=== PATIENT | female | born 1940 | race Caucasian/White ===

== ENCOUNTER 2016-11-09 10:29 | Emergency (ER) | payer MEDICARE, BC ==
[2016-11-09] MEDS ORDERED: methylPREDNISolone SOD SUCCI 125 MG/2 ML VIAL IV STA (10:49)
[2016-11-09] MEDS ORDERED: FAMOTIDINE 20 MG/2 ML VIAL IV STA (10:49)
[2016-11-09] MEDS ORDERED: diphenhydrAMINE 50 MG CAP PO STA (10:49)
--- NOTE | 2016-11-09 10:59 | ED ---
General Adult HPI - General Chief complaint: Allergic Reaction Stated complaint: allergic reaction Time Seen by Provider: 11/09/16 10:44 Source: patient, RN notes reviewed Mode of arrival: ambulatory Limitations: no limitations - History of Present Illness Initial comments: Patient is a pleasant 76-year-old female presenting to the emergency department with concerns for ALLERGIC reaction. Patient started doxycycline for a sore on her leg. Last dose was Monday. Patient noticed hives. Patient took Benadryl yesterday with some improvement of symptoms. Patient noticed today some mild swelling of her throat and mild dyspnea. Rash has slightly improved. - Related Data Home Medications Medication Instructions Recorded Confirmed Atorvastatin [Lipitor] 40 mg PO HS 02/05/15 11/09/16 Budesonide [Pulmicort Flexhaler] 2 puff INHALATION RT-BID 02/05/15 11/09/16 Isosorbide Mononitrate ER [Imdur] 30 mg PO DAILY 02/05/15 11/09/16 Lisinopril [Zestril] 2.5 mg PO DAILY 02/05/15 11/09/16 Sertraline HCl [Zoloft] 150 mg PO HS 02/05/15 11/09/16 Verapamil HCl [Verapamil ER] 240 mg PO HS 02/05/15 11/09/16 Cetirizine HCl [Zyrtec] 5 mg PO DAILY PRN 02/18/15 11/09/16 Multivitamin/Iron/Folic Acid 1 tab PO DAILY 02/18/15 11/09/16 [Centrum Complete Multivit Tab] Previous Rx's Medication Instructions Recorded methylPREDNISolone Dose Pack 24 mg PO DAILY #1 tab 11/09/16 [Medrol Dose Pack] Allergies Allergy/AdvReac Type Severity Reaction Status Date / Time azithromycin Allergy Anaphylaxis Verified 11/09/16 10:33 [From Zithromax Z-Bo] Sulfa (Sulfonamide Allergy Anaphylaxis Verified 11/09/16 10:33 Antibiotics) Review of Systems ROS Statement: Those systems with pertinent positive or pertinent negative responses have been documented in the HPI. ROS Other: All systems not noted in ROS Statement are negative. Constitutional: Denies: fever Eyes: Denies: eye pain ENT: Denies: ear pain Respiratory: Denies: cough Cardiovascular: Denies: chest pain Endocrine: Denies: fatigue Gastrointestinal: Denies: abdominal pain Genitourinary: Denies: dysuria Musculoskeletal: Denies: back pain Skin: Reports: rash Neurological: Denies: headache Past Medical History Past Medical History: Hyperlipidemia, Hypertension History of Any Multi-Drug Resistant Organisms: MRSA Date of last positivie culture/infection: 09/2013 MDRO Source:: bowels Past Surgical History: Back Surgery, Cholecystectomy, Heart Catheterization, Hysterectomy Additional Past Surgical History / Comment(s): T3-4-5 fused with cadaver bones, L3-4-5 fused with metal Past Anesthesia/Blood Transfusion Reactions: No Reported Reaction Past Psychological History: Anxiety Smoking Status: Never smoker Past Alcohol Use History: Rare Past Drug Use History: None Reported - Past Family History Son(s) Family Medical History: Cancer Additional Family Medical History / Comment(s): Leukemia Father Family Medical History: Renal Disease Additional Family Medical History / Comment(s): at 46. General Exam Limitations: no limitations General appearance: alert, in no apparent distress Head exam: Present: atraumatic Eye exam: Present: normal appearance, PERRL ENT exam: Present: other (Trace edema to the uvula. No swelling of the lips or tongue.) Neck exam: Present: normal inspection Respiratory exam: Present: normal lung sounds bilaterally. Absent: respiratory distress, wheezes Cardiovascular Exam: Present: regular rate, normal rhythm GI/Abdominal exam: Present: soft. Absent: tenderness Extremities exam: Present: normal inspection Neurological exam: Present: alert Psychiatric exam: Present: normal affect, normal mood Skin exam: Present: urticaria (Mostly involving the legs), other (Patient does have a 1.5 circular lesion right mid thigh that appears to be healing.) Course Vital Signs 11/09/16 11/09/16 10:31 11:53 Temperature 98.6 F Pulse Rate 94 75 Respiratory 20 18 Rate Blood Pressure 147/70 133/74 O2 Sat by Pulse 94 L 97 Oximetry Medical Decision Making - Medical Decision Making Patient reexamined and feels much better. No throat swelling or dyspnea. Patient is comfortable with discharge. Patient states she believes this is actually the second time she had ALLERGIC reaction to doxycycline. Disposition Clinical Impression: Allergic reaction Disposition: HOME SELF-CARE Condition: Stable Instructions: Antibiotic Medication Allergy (ED) Additional Instructions: Discontinue doxycycline. Avoid doxycycline in the future. [id number] Benadryl. Continue with wound care and antibiotic ointment to the right leg. Return for throat, tongue, face swelling, difficulty breathing, worsening symptoms or other concerns. Prescriptions: methylPREDNISolone Dose Pack [Medrol Dose Pack] 24 mg PO DAILY #1 tab Referrals: Saurabh Garcia MD [Primary Care Provider] - 1-2 days Time of Disposition: 12:47
[2016-11-09 11:54] VITALS: RESP 18
[2016-11-09 12:52] VITALS: BP 139/73; PULSE 71; TEMP 97.6
== END 2016-11-09 12:58 | disposition home or self-care (01) ==
LOC: EC 10:29
DX: L50.0 Allergic urticaria (principal); T36.4X5A Adverse effect of tetracyclines, initial encounter; L98.8 Other specified disorders of the skin and subcutaneous tissue; E78.5 Hyperlipidemia, unspecified; I10 Essential (primary) hypertension; F41.9 Anxiety disorder, unspecified; Z79.899 Other long term (current) drug therapy; Z79.51 Long term (current) use of inhaled steroids; Z88.1 Allergy status to other antibiotic agents; Z88.2 Allergy status to sulfonamides; Z86.14 Personal history of Methicillin resistant Staphylococcus aureus infection
CPT/HCPCS: 96374; 96375; 99283; J2930

== ENCOUNTER 2017-09-24 13:23 | Observation (INO) | payer MEDICARE, BC ==
--- NOTE | 2017-09-24 13:45 | ED ---
General Adult HPI - General Chief complaint: Chest Pain Stated complaint: Chest Pain Time Seen by Provider: 09/24/17 13:41 Source: patient, EMS, RN notes reviewed, old records reviewed Mode of arrival: EMS Limitations: no limitations - History of Present Illness Initial comments: This is a 77-year-old female the ER for evaluation of chest pain today. Patient has a for evaluation of not feeling well not herself. Patient states something is off. She does have history of ectopy, syncope 2 days ago. Patient also 20 of palpitations pain pain in her neck back, anxiety, pain is worsened normal. 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 Patient has no shortness of breath but she was diaphoretic 3. - Related Data Home Medications Medication Instructions Recorded Confirmed Atorvastatin [Lipitor] 40 mg PO HS 02/05/15 09/24/17 Budesonide [Pulmicort Flexhaler] 2 puff INHALATION RT-BID 02/05/15 09/24/17 Isosorbide Mononitrate ER [Imdur] 30 mg PO DAILY 02/05/15 09/24/17 Lisinopril [Zestril] 2.5 mg PO DAILY 02/05/15 09/24/17 Sertraline HCl [Zoloft] 150 mg PO HS 02/05/15 09/24/17 Verapamil HCl [Verapamil ER] 240 mg PO HS 02/05/15 09/24/17 Cetirizine HCl [Zyrtec] 5 mg PO DAILY PRN 02/18/15 09/24/17 Multivitamin/Iron/Folic Acid 1 tab PO DAILY 02/18/15 09/24/17 [Centrum Complete Multivit Tab] Allergies Allergy/AdvReac Type Severity Reaction Status Date / Time azithromycin Allergy Anaphylaxis Verified 09/24/17 13:24 [From Zithromax Z-Bo] Sulfa (Sulfonamide Allergy Anaphylaxis Verified 09/24/17 13:24 Antibiotics) Review of Systems ROS Statement: Those systems with pertinent positive or pertinent negative responses have been documented in the HPI. ROS Other: All systems not noted in ROS Statement are negative. 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, L3-4-5 fused with metal Past Anesthesia/Blood Transfusion Reactions: No Reported Reaction Past Psychological History: Anxiety, Depression Smoking Status: Never smoker Past Alcohol Use History: Rare Past Drug Use History: None Reported - Past Family History Son(s) Family Medical History: Cancer Additional Family Medical History / Comment(s): Leukemia Father Family Medical History: Renal Disease Additional Family Medical History / Comment(s): at 46. General Exam Limitations: no limitations General appearance: alert, in no apparent distress, anxious Head exam: Present: atraumatic, normocephalic, normal inspection Eye exam: Present: normal appearance, PERRL, EOMI. Absent: scleral icterus, conjunctival injection, periorbital swelling ENT exam: Present: normal exam, mucous membranes moist Neck exam: Present: normal inspection. Absent: tenderness, meningismus, lymphadenopathy Respiratory exam: Present: normal lung sounds bilaterally. Absent: respiratory distress, wheezes, rales, rhonchi, stridor Cardiovascular Exam: Present: regular rate, normal rhythm, normal heart sounds. Absent: systolic murmur, diastolic murmur, rubs, gallop, clicks GI/Abdominal exam: Present: soft, normal bowel sounds. Absent: distended, tenderness, guarding, rebound, rigid Extremities exam: Present: normal inspection, full ROM, normal capillary refill. Absent: tenderness, pedal edema, joint swelling, calf tenderness Back exam: Present: normal inspection Neurological exam: Present: alert, oriented X3, CN II-XII intact Psychiatric exam: Present: normal affect, normal mood Skin exam: Present: warm, dry, intact, normal color. 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 Patient will be admitted for chest pain observation with history of heart disease - Lab Data Result diagrams: 09/24/17 13:35 09/24/17 13:35 Lab Results 09/24/17 09/24/17 09/24/17 Range/Units 13:35 13:35 13:35 WBC 16.7 H (3.8-10.6) k/uL RBC 5.45 H (3.80-5.40) m/uL Hgb 15.4 (11.4-16.0) gm/dL Hct 46.6 H (34.0-46.0) % MCV 85.5 (80.0-100.0) fL MCH 28.2 (25.0-35.0) pg MCHC 32.9 (31.0-37.0) g/dL RDW 13.3 (11.5-15.5) % Plt Count 369 (150-450) k/uL Neutrophils % 74 % Lymphocytes % 16 % Monocytes % 8 % Eosinophils % 1 % Basophils % 0 % Neutrophils # 12.3 H (1.3-7.7) k/uL Lymphocytes # 2.6 (1.0-4.8) k/uL Monocytes # 1.4 H (0-1.0) k/uL Eosinophils # 0.1 (0-0.7) k/uL Basophils # 0.0 (0-0.2) k/uL PT (9.0-12.0) sec INR (<1.2) APTT (22.0-30.0) sec Sodium 136 L (137-145) mmol/L Potassium 4.3 (3.5-5.1) mmol/L Chloride 99 (98-107) mmol/L Carbon Dioxide 25 (22-30) mmol/L Anion Gap 12 mmol/L BUN 31 H (7-17) mg/dL Creatinine 0.91 (0.52-1.04) mg/dL Est GFR (CKD-EPI)AfAm 71 (>60 ml/min/1.73 sqM) Est GFR (CKD-EPI)NonAf 62 (>60 ml/min/1.73 sqM) Glucose 93 (74-99) mg/dL Calcium 9.5 (8.4-10.2) mg/dL Magnesium 2.3 (1.6-2.3) mg/dL Total Bilirubin 0.7 (0.2-1.3) mg/dL AST 39 H (14-36) U/L ALT 60 H (9-52) U/L Alkaline Phosphatase 70 (38-126) U/L Total Creatine Kinase 23 L (30-135) U/L CK-MB (CK-2) 0.8 (0.0-2.4) ng/mL CK-MB (CK-2) Rel Index 3.5 Troponin I <0.012 (0.000-0.034) ng/mL Total Protein 6.5 (6.3-8.2) g/dL Albumin 4.1 (3.5-5.0) g/dL Lipase 276 (23-300) U/L 09/24/17 Range/Units 13:35 WBC (3.8-10.6) k/uL RBC (3.80-5.40) m/uL Hgb (11.4-16.0) gm/dL Hct (34.0-46.0) % MCV (80.0-100.0) fL MCH (25.0-35.0) pg MCHC (31.0-37.0) g/dL RDW (11.5-15.5) % Plt Count (150-450) k/uL Neutrophils % % Lymphocytes % % Monocytes % % Eosinophils % % Basophils % % Neutrophils # (1.3-7.7) k/uL Lymphocytes # (1.0-4.8) k/uL Monocytes # (0-1.0) k/uL Eosinophils # (0-0.7) k/uL Basophils # (0-0.2) k/uL PT 10.3 (9.0-12.0) sec INR 1.1 (<1.2) APTT 20.9 L (22.0-30.0) sec Sodium (137-145) mmol/L Potassium (3.5-5.1) mmol/L Chloride (98-107) mmol/L Carbon Dioxide (22-30) mmol/L Anion Gap mmol/L BUN (7-17) mg/dL Creatinine (0.52-1.04) mg/dL Est GFR (CKD-EPI)AfAm (>60 ml/min/1.73 sqM) Est GFR (CKD-EPI)NonAf (>60 ml/min/1.73 sqM) Glucose (74-99) mg/dL Calcium (8.4-10.2) mg/dL Magnesium (1.6-2.3) mg/dL Total Bilirubin (0.2-1.3) mg/dL AST (14-36) U/L ALT (9-52) U/L Alkaline Phosphatase (38-126) U/L Total Creatine Kinase (30-135) U/L CK-MB (CK-2) (0.0-2.4) ng/mL CK-MB (CK-2) Rel Index Troponin I (0.000-0.034) ng/mL Total Protein (6.3-8.2) g/dL Albumin (3.5-5.0) g/dL Lipase (23-300) U/L - Radiology Data Radiology results: report reviewed (CT anterior chest abdomen pelvis is negative for acute disease), image reviewed Disposition Clinical Impression: Chest pain, Syncope Disposition: HOME SELF-CARE Condition: Good Instructions: Chest Pain (ED), Syncope (ED) Is patient prescribed a controlled substance at d/c from ED?: No Referrals: Saurabh Garcia MD [Primary Care Provider] - 1-2 days
[2017-09-24 13:52] LABS: Basophils % (A) 0 %; Eosinophils # (A) 0.1 k/uL (0-0.7); Eosinophils % (A) 1 %; HCT 46.6 % (34.0-46.0); HGB 15.4 gm/dL (11.4-16.0); Lymphocytes # (A) 2.6 k/uL (1.0-4.8); Lymphocytes % (A) 16 %; MCH 28.2 pg (25.0-35.0); MCHC 32.9 g/dL (31.0-37.0); MCV 85.5 fL (80.0-100.0); Mean Platelet Volume 7.1; Monocytes # (A) 1.4 k/uL (0-1.0); Monocytes % (A) 8 %; Neutrophils # (A) 12.3 k/uL (1.3-7.7); Neutrophils % (A) 74 %; Platelet Count 369 k/uL (150-450); RBC 5.45 m/uL (3.80-5.40); RDW 13.3 % (11.5-15.5); WBC 16.7 k/uL (3.8-10.6)
--- NOTE | 2017-09-24 13:55 | XR ---
EXAMINATION TYPE: XR chest 2V DATE OF EXAM: 09/24/2017 COMPARISON: 11/17/2011 HISTORY: 77-year-old female with chest pain TECHNIQUE: Frontal and lateral views FINDINGS: The heart is borderline enlarged. Mild diffuse interstitial prominence increased from prior. Left bas e underpenetrated and not well assessed. No pleural effusion seen on the lateral view. IMPRESSION: 1. Borderline cardiomegaly. 2. Interstitial prominence has a chronic appearance, possible bronchitis or chronic asthma. 3. Left base underpenetrated and suboptimally assessed. Underlying airspace disease would be difficul t to exclude on this exam.
[2017-09-24 14:01] LABS: Albumin 4.1 g/dL (3.5-5.0); Calcium 9.5 mg/dL (8.4-10.2); Total Bilirubin 0.7 mg/dL (0.2-1.3); Total Protein 6.5 g/dL (6.3-8.2)
[2017-09-24 14:02] LABS: Potassium 4.3 mmol/L (3.5-5.1)
[2017-09-24 14:03] LABS: Magnesium 2.3 mg/dL (1.6-2.3)
[2017-09-24 14:10] LABS: INR 1.1 (<1.2); Prothrombin Time 10.3 sec (9.0-12.0)
[2017-09-24] MEDS ORDERED: RX INFO: IV CONTRAST WAS GIVEN 1 EACH MISC MISCELLANE PRN (14:13)
[2017-09-24 14:17] LABS: Creatine Kinase 23 U/L (30-135)
[2017-09-24 14:30] LABS: Partial Thromboplastin Time 20.9 sec (22.0-30.0)
[2017-09-24 14:31] LABS: Creatine Kinase MB 0.8 ng/mL (0.0-2.4); Troponin I <0.012 ng/mL (0.000-0.034)
--- NOTE | 2017-09-24 15:20 | CT ---
EXAMINATION TYPE: CT angio chest DATE OF EXAM: 09/24/2017 COMPARISON: 02/18/2013 HISTORY: 77-year-old female Chest pain TECHNIQUE: Contiguous axial scanning of the chest performed with IV Contrast, patient injected with 1 00 ml mL of Isovue 370. Coronal/sagittal MIP reconstructions performed. CT DLP: 262.90 mGycm Automated exposure control for dose reduction was used. FINDINGS: Heart is upper limits of normal in size with trace pericardial effusion. Mild coronary vessel calcifi cations are present. Aorta normal caliber with conventional arch vessel branching anatomy. No thoracic lymphadenopathy by CT size criteria. Satisfactory opacification of the pulmonary arterial system without evidence for pulmonary embolus. Evaluation of the lungs redemonstrates subpleural reticular densities, increased from 02/18/2013. The re is mild traction bronchiectasis at the lung bases and mild scattered patchy areas of groundglass p redominantly in the lower lungs and peripherally. Band of atelectasis or scarring peripherally in the right lower lobe. No nancy consolidation or pleural effusion. No stacked honeycombing. Visualized upper abdomen shows cholecystectomy clips.. Bones: Mild endplate spondylosis mid to lower thoracic spine. IMPRESSION: 1. NO EVIDENCE FOR PULMONARY EMBOLUS. 2. CHRONIC INTERSTITIAL LUNG DISEASE AND FIBROSIS SHOWS PROGRESSION FROM 2012. THERE IS ASSOCIATED ID [id number] BRONCHIECTASIS. NO NANCY HONEYCOMBING TO SUGGEST UIP.
--- NOTE | 2017-09-24 15:36 | CT ---
EXAMINATION TYPE: CT brain wo con DATE OF EXAM: 09/24/2017 COMPARISON: NONE HISTORY: 77-year-old female Headache TECHNIQUE: Examination was done in axial plane without intravenous contrast. Coronal and sagittal r econstructions performed. CT DLP: 538.60 mGycm Automated exposure control for dose reduction was used. FINDINGS: There is no evidence of acute intracranial hemorrhage, acute ischemic changes, mass, mass-effect, or extra-axial fluid collection. There is no effacement of cerebral sulci or basal subarachnoid cister ns. There is no hydrocephalus. There is no midline shift. Jacobo-white matter distinction is preserv ed. Prominent arachnoid granulations along the posterior calvarium. There is some underlying hypodensity in the posterior superior right cerebral hemispheres that could represent old area of infarcts for ex ample, (sagittal image 28 and 22). 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 Mild periventricular and subcortical white matter hypodensities likely relating to changes of chronic small vessel ischemic disease. Old lacunar infarct or perivascular spaces left basal ganglia. Partia lly empty sella. Paranasal sinuses and mastoid air cells appear well pneumatized. Orbits and globes are intact. IMPRESSION: 1. No acute intracranial abnormality seen. 2. Recommend contrast contrast-enhanced MRI and MRA jamul of [place] to further evaluate some inciden myah findings: Suspected large arachnoid granulations posteriorly. Underlying hypodensities in the sup erior cerebral hemispheres could represent areas of old infarcts. Also, possible 8 mm basilar tip ane urysm.
[2017-09-24] MEDS ORDERED: NITROGLYCERIN SL TABS 0.4 MG TAB SUBLINGUAL PRN (16:16)
[2017-09-24 17:32] VITALS: BMI 29.8
[2017-09-24] MEDS: BUDESONIDE 1 MG/2 ML NEBU INHALATION SCH (20:12)
[2017-09-24] MEDS ORDERED: VERAPAMIL SR 240 MG TABLET.ER PO SCH (21:00)
[2017-09-24] MEDS ORDERED: ATORVASTATIN 40 MG TAB PO SCH (21:00)
[2017-09-24] MEDS ORDERED: SERTRALINE 50 MG TAB PO SCH (21:00)
[2017-09-24 21:39] LABS: Creatine Kinase <20 U/L (30-135)
[2017-09-24 21:52] LABS: Creatine Kinase MB 0.7 ng/mL (0.0-2.4); Troponin I <0.012 ng/mL (0.000-0.034)
[2017-09-25 02:45] LABS: Creatine Kinase <20 U/L (30-135)
[2017-09-25 02:47] LABS: Cholesterol 158 mg/dL (<200); HDL Cholesterol 69 mg/dL (40-60); LDL Cholesterol,Calculated 52 mg/dL (0-99); Triglycerides 185 mg/dL (<150)
[2017-09-25 02:58] LABS: Creatine Kinase MB 0.7 ng/mL (0.0-2.4); Troponin I <0.012 ng/mL (0.000-0.034)
[2017-09-25 04:44] VITALS: RESP 16
[2017-09-25] MEDS ORDERED: LORATADINE 10 MG TAB PO SCH (09:00)
[2017-09-25] MEDS ORDERED: LISINOPRIL 2.5 MG TAB PO SCH (09:00)
[2017-09-25] MEDS ORDERED: ASPIRIN 325 MG TAB PO SCH (09:00)
[2017-09-25] MEDS ORDERED: ISOSORBIDE MONONITRATE ER 30 MG TAB.ER.24H PO SCH (09:00)
--- NOTE | 2017-09-25 09:32 | P.CRDCN ---
History of Present Illness Consult date: 09/25/17 Chief complaint: Loss of consciousness History of present illness: This is a pleasant 77-year-old female patient who sees Dr. Garcia in the office on the regular basis with documented history of coronary artery disease with intermediate disease involving the first diagonal of the LAD based on heart catheterization was performed in 2011, history of hypertension and dyslipidemia, and history of recurrent syncope secondary to vasovagal, presented to the hospital again with another syncopal episode. She was in her usual state of health until yesterday when she was at bed at suddenly she felt dizzy and clammy and asked her to hold her to walk to the bathroom when she had a weakness syncopal episode. This time the episode was associated with incontinence and also with seizure kind of activities. The patient also states that in the beginning she develop some anxiety and a chest discomfort. The EKG showed sinus rhythm with nonspecific changes only. The cardiac enzymes were checked and came in to be unremarkable. The computed tomography scan of the chest did not show any PE but it did show chronic lung changes. 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 The patient has been maintaining normal sinus mechanism and normal blood pressure and heart rate during her hospitalization. She is pain-free at this point. 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 Smoking Status: Never smoker Past Alcohol Use History: Rare Past Drug Use History: None Reported - Past Family History Mother Family Medical History: Congestive Heart Failure (CHF) Son(s) Family Medical History: Cancer Additional Family Medical History / Comment(s): Leukemia Father Family Medical History: Renal Disease Additional Family Medical History / Comment(s): at 46. Medications and Allergies Home Medications Medication Instructions Recorded Confirmed Type Atorvastatin [Lipitor] 40 mg PO HS 02/05/15 09/24/17 History Budesonide [Pulmicort Flexhaler] 2 puff INHALATION RT-BID 02/05/15 09/24/17 History Isosorbide Mononitrate ER [Imdur] 30 mg PO DAILY 02/05/15 09/24/17 History Lisinopril [Zestril] 2.5 mg PO DAILY 02/05/15 09/24/17 History Sertraline HCl [Zoloft] 150 mg PO HS 02/05/15 09/24/17 History Verapamil HCl [Verapamil ER] 240 mg PO HS 02/05/15 09/24/17 History Multivitamin/Iron/Folic Acid 1 tab PO DAILY 02/18/15 09/24/17 History [Centrum Complete Multivit Tab] Cetirizine HCl [Zyrtec] 10 mg PO DAILY 09/24/17 09/24/17 History Allergies Allergy/AdvReac Type Severity Reaction Status Date / Time azithromycin Allergy Anaphylaxis Verified 09/24/17 16:34 [From Zithromax Z-Bo] doxycycline Allergy Unknown Verified 09/24/17 16:34 Sulfa (Sulfonamide Allergy Anaphylaxis Verified 09/24/17 16:34 Antibiotics) Physical Exam Vitals: Vital Signs Temp Pulse Pulse Pulse Pulse Resp BP 09/25/17 07:42 98.3 F 71 16 09/25/17 04:00 97.9 F 86 68 16 09/25/17 00:00 98.2 F 86 15 09/24/17 23:49 0 L 86 16 09/24/17 20:22 80 09/24/17 20:12 84 09/24/17 19:55 76 16 09/24/17 19:17 98.1 F 83 15 09/24/17 16:55 98.0 F 76 16 09/24/17 16:36 68 18 146/72 09/24/17 14:51 69 09/24/17 14:32 72 18 138/73 09/24/17 13:25 98.5 F 73 20 152/72 BP Pulse Ox 09/25/17 07:42 117/60 93 L 09/25/17 04:00 126/61 96 09/25/17 00:00 113/55 96 09/24/17 23:49 09/24/17 20:22 09/24/17 20:12 95 09/24/17 19:55 09/24/17 19:17 113/55 94 L 09/24/17 16:55 134/79 98 09/24/17 16:36 97 09/24/17 14:51 09/24/17 14:32 96 09/24/17 13:25 100 Intake and Output 09/24/17 09/25/17 09/25/17 22:59 06:59 14:59 Intake Total 650 Balance 650 Intake: Oral 650 Other: # Voids 1 Weight 81.4 kg - Constitutional General appearance: no acute distress - Respiratory Respiratory: bilateral: CTA - Cardiovascular Rhythm: regular Heart sounds: normal: S1, S2 Results 09/24/17 13:35 09/24/17 13:35 Cardiac Enzymes 09/24/17 09/24/17 09/24/17 Range/Units 13:35 13:35 20:49 AST 39 H (14-36) U/L CK-MB (CK-2) 0.8 0.7 (0.0-2.4) ng/mL Troponin I <0.012 <0.012 (0.000-0.034) ng/mL 09/25/17 Range/Units 01:53 AST (14-36) U/L CK-MB (CK-2) 0.7 (0.0-2.4) ng/mL Troponin I <0.012 (0.000-0.034) ng/mL Coagulation 09/24/17 Range/Units 13:35 PT 10.3 (9.0-12.0) sec APTT 20.9 L (22.0-30.0) sec Lipids 09/24/17 Range/Units 13:55 Triglycerides 185 H (<150) mg/dL Cholesterol 158 (<200) mg/dL HDL Cholesterol 69 H (40-60) mg/dL CBC 09/24/17 Range/Units 13:35 WBC 16.7 H (3.8-10.6) k/uL RBC 5.45 H (3.80-5.40) m/uL Hgb 15.4 (11.4-16.0) gm/dL Hct 46.6 H (34.0-46.0) % Plt Count 369 (150-450) k/uL Comprehensive Metabolic Panel 09/24/17 Range/Units 13:35 Sodium 136 L (137-145) mmol/L Potassium 4.3 (3.5-5.1) mmol/L Chloride 99 (98-107) mmol/L Carbon Dioxide 25 (22-30) mmol/L BUN 31 H (7-17) mg/dL Creatinine 0.91 (0.52-1.04) mg/dL Glucose 93 (74-99) mg/dL Calcium 9.5 (8.4-10.2) mg/dL AST 39 H (14-36) U/L ALT 60 H (9-52) U/L Alkaline Phosphatase 70 (38-126) U/L Total Protein 6.5 (6.3-8.2) g/dL Albumin 4.1 (3.5-5.0) g/dL Current Medications Generic Name Dose Route Start Last Admin Trade Name Freq PRN Reason Stop Dose Admin Aspirin 325 mg 09/25/17 09:00 Aspirin PO DAILY [facility] Atorvastatin Calcium 40 mg 09/24/17 21:00 09/24/17 20:55 Lipitor PO 40 mg HS ANTONETTE Administration Budesonide 1 mg 09/24/17 20:00 09/24/17 20:12 Pulmicort INHALATION 1 mg RT-BID ANTONETTE Administration Isosorbide Mononitrate 30 mg 09/25/17 09:00 Imdur PO DAILY [facility] Lisinopril 2.5 mg 09/25/17 09:00 Zestril PO DAILY [facility] Loratadine 10 mg 09/25/17 09:00 Claritin PO DAILY [facility] Miscellaneous Information 1 each 09/24/17 14:13 Rx Info: Iv Contrast Was Given MISCELLANE 09/26/17 14:13 DAILY PRN Per Protocol Multivitamins 1 each 09/25/17 12:00 Theragran PO DAILY@1200 [facility] Nitroglycerin 0.4 mg 09/24/17 16:16 Nitrostat SUBLINGUAL Q5M PRN Chest Pain Sertraline HCl 150 mg 09/24/17 21:00 09/24/17 20:55 Zoloft PO 150 mg HS ANTONETTE Administration Verapamil HCl 240 mg 09/24/17 21:00 09/24/17 20:55 Isoptin Sr PO 240 mg HS ANTONETTE Administration Intake and Output 09/24/17 09/25/17 09/25/17 22:59 06:59 14:59 Intake Total 650 Balance 650 Intake: Oral 650 Other: # Voids 1 Weight 81.4 kg 09/24/17 13:35 09/24/17 13:35 Assessment and Plan Assessment: Assessment #1 with a syncopal episode. #2 possible seizure activity #3 atypical chest discomfort #4 nonobstructive CAD #5 hypertension Plan #1 the patient was ruled out for acute coronary event #2 she continues to be asymptomatic from the cardiovascular standpoint of view #3 the patient needs to be evaluated for the aneurysm in the brain #4 no need for any further cardiac workup at this point.
[2017-09-25] MEDS: BUDESONIDE 1 MG/2 ML NEBU INHALATION SCH (11:55)
[2017-09-25] MEDS ORDERED: MULTIVITAMINS, THERA 1 EACH TAB PO SCH (12:00)
[2017-09-25 12:03] VITALS: BP 164/78; PULSE 99; TEMP 97.8
--- NOTE | 2017-09-25 13:37 | P.HPIM ---
History of Present Illness H&P Date: 09/25/17 Chief Complaint: Chest pain, syncope, CAD, hypertension, hyperlipidemia and arrhythmia 77-year-old female one of Dr. Ramirez patient with past medical history of CAD, arrhythmia, hypertension hyperlipidemia who seen Dr. castle on at cardiology on regular basis had mild disease involving the first diagonal of the LAD [id number].Patient had an episode of presyncope like on this past week when she almost passed out had mild palpitation and slight chest tightness and pressure. Ended up doing a well all the way till 09/24/2017 when she had similar episode as well with presyncope like and mild palpitation with mild chest pain and pressure. Ended up coming to demurs department at [facility] with above problem was seen and evaluated her cardiac enzyme more and remarkable, CT of the brain did not show any abnormality. Her d-dimer was elevated patient ended up going for CTA which did not show any abnormality at the time and had no sign of PE. Patient was to the hospital kept on heart monitor and CK with troponin 3 were done. Patient was seen by laser engraver morning and clear for discharge and to follow as an outpatient. Review of Systems Constitutional: Reports chronic pain, Reports fatigue, Reports poor appetite, Reports weakness, Denies as per HPI, Denies anorexia, Denies chills, Denies chronic headaches, Denies daytime sleepiness, Denies fever, Denies lethargy, Denies malaise, Denies night sweats, Denies sweats, Denies weight gain, Denies weight loss Eyes: bilateral as per HPI Ears: bilateral: decreased hearing Ears, nose, mouth and throat: Reports ant. neck pain, Reports nasal congestion, Reports sinus pressure, Reports sore throat, Denies as per HPI, Denies bleeding gums, Denies dental pain, Denies dysphagia, Denies epistaxis, Denies headache, Denies hoarseness, Denies mouth pain, Denies nasal discharge, Denies neck fullness/pressure, Denies neck lump, Denies nose pain, Denies odynophagia, Denies post-nasal drip, Denies sinus pain, Denies swelling in mouth, Denies swelling in throat, Denies vertigo, Denies voice changes Breasts: bilateral: as per HPI Cardiovascular: Reports chest pain, Reports decreased exercise tolerance, Reports dyspnea on exertion, Reports edema, Reports high blood pressure, Reports irregular heart beat, Reports lightheadedness, Reports orthopnea, Reports syncope, Denies as per HPI, Denies claudication, Denies leg edema, Denies palpitations, Denies paroxysmal nocturnal dyspnea, Denies phlebitis, Denies rapid heart beat, Denies shortness of breath Respiratory: Reports congestion, Reports dyspnea, Denies as per HPI, Denies cough, Denies cough with sputum, Denies excessive sputum, Denies hemoptysis, Denies home oxygen, Denies pain, Denies pain on inspiration, Denies pleurisy, Denies respiratory infections, Denies sleep apnea, Denies snoring, Denies wheezing Gastrointestinal: Reports abdominal pain, Reports dyspepsia, Reports heartburn, Reports nausea, Denies as per HPI, Denies belching, Denies bloating, Denies BRBPR, Denies change in bowel habits, Denies coffee ground emesis, Denies constipation, Denies diarrhea, Denies early satiety, Denies excessive gas, Denies hematemesis, Denies hematochezia, Denies indigestion, Denies jaundice, Denies lactose intolerance, Denies loss of appetite, Denies melena, Denies vomiting Genitourinary: Reports nocturia, Denies as per HPI, Denies abnormal vaginal bleeding, Denies decreased libido, Denies difficulty conceiving, Denies difficulty voiding, Denies dysmenorrhea, Denies dyspareunia, Denies dysuria, Denies flank pain, Denies genital sores, Denies hematuria, Denies hot flashes, Denies incomplete emptying, Denies kidney stones, Denies menorrhagia, Denies mixed incontinence, Denies pelvic pain, Denies post void dribbling, Denies , Denies prolapse symptoms, Denies stress incontinence, Denies urge incontinence, Denies urgency, Denies urinary frequency, Denies vaginal discharge , Denies vaginal dryness, Denies vaginal itching, Denies vaginal odor Musculoskeletal: Reports low back pain, Reports muscle cramps, Reports myalgias , Reports neck pain, Reports neck stiffness, Denies as per HPI, Denies arm numbness/tingling, Denies atrophy, Denies fractures, Denies frequent falls, Denies gait dysfunction, Denies hot joints, Denies leg numbness/tingling, Denies limitation of motion, Denies loss of height, Denies morning stiffness, Denies muscle weakness, Denies prior amputations, Denies redness of joints, Denies shooting arm pain, Denies shooting leg pain Musculoskeletal: bilateral: ankle pain Integumentary: Denies as per HPI, Denies acne, Denies boils, Denies brittle nails, Denies change in hair/nails, Denies color changes, Denies darkening of skin, Denies depigmentation, Denies dryness, Denies foot/leg ulcers, Denies growths, Denies hirsutism, Denies lesions, Denies onychomycosis, Denies pruritus , Denies rash, Denies sores, Denies striae, Denies unusual bruising, Denies wounds Neurological: Reports syncope, Reports weakness, Denies as per HPI, Denies aphasia, Denies ataxia, Denies balance difficulties, Denies burning pain, Denies change in mentation, Denies change in smell/taste, Denies change in speech, Denies confusion, Denies convulsions, Denies double vision, Denies gait dysfunction, Denies head injury, Denies headaches, Denies hearing difficulties, Denies lack of coordination, Denies loss of vision, Denies memory loss, Denies migraines, Denies motor disturbance, Denies numbness, Denies paralysis, Denies paresthesias, Denies seizures, Denies sensory deficit, Denies spasticity, Denies tic, Denies tingling, Denies transient paralysis, Denies tremors, Denies vertigo, Denies visual changes Psychiatric: Reports anhedonia, Reports anxiety, Reports anxiety attacks, Denies as per HPI, Denies change in appetite, Denies change in libido, Denies change in sleep habits, Denies confusion, Denies depression, Denies difficulty concentrating, Denies disorientation, Denies hallucinations, Denies hopelessness , Denies hypersomnia, Denies insomnia, Denies irritability, Denies memory loss, Denies mood swings, Denies paranoia, Denies sadness/tearfulness, Denies sleep disturbances, Denies suicidal ideation Endocrine: Reports cold intolerance, Reports fatigue, Reports nocturia, Denies as per HPI, Denies deepening of the voice, Denies excessive sweating, Denies excessive thirst, Denies flushing, Denies heat intolerance, Denies high blood sugars, Denies increase in ring/shoe/hat size, Denies low blood sugars, Denies palpitations, Denies polydipsia, Denies polyphagia, Denies polyuria, Denies proptosis, Denies recent glucocorticoid use, Denies thyroid mass, Denies weight change Hematologic/Lymphatic: Denies as per HPI, Denies easy bleeding, Denies easy bruising, Denies lymphadenopathy, Denies lymphedema, Denies thrombophilia Allergic/Immunologic: Reports allergic rhinitis, Denies as per HPI, Denies anaphylaxis, Denies angioedema, Denies gluten intolerance, Denies persistent infections, Denies seasonal allergies, Denies urticaria, Denies wheezing 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 Smoking Status: Never smoker Past Alcohol Use History: Rare Past Drug Use History: None Reported - Past Family History Mother Family Medical History: Congestive Heart Failure (CHF) Son(s) Family Medical History: Cancer Additional Family Medical History / Comment(s): Leukemia Father Family Medical History: Renal Disease Additional Family Medical History / Comment(s): at 46. Medications and Allergies Home Medications Medication Instructions Recorded Confirmed Type Atorvastatin [Lipitor] 40 mg PO HS 02/05/15 09/24/17 History Budesonide [Pulmicort Flexhaler] 2 puff INHALATION RT-BID 02/05/15 09/24/17 History Isosorbide Mononitrate ER [Imdur] 30 mg PO DAILY 02/05/15 09/24/17 History Lisinopril [Zestril] 2.5 mg PO DAILY 02/05/15 09/24/17 History Sertraline HCl [Zoloft] 150 mg PO HS 02/05/15 09/24/17 History Verapamil HCl [Verapamil ER] 240 mg PO HS 02/05/15 09/24/17 History Multivitamin/Iron/Folic Acid 1 tab PO DAILY 02/18/15 09/24/17 History [Centrum Complete Multivit Tab] Cetirizine HCl [Zyrtec] 10 mg PO DAILY 09/24/17 09/24/17 History ALPRAZolam [Xanax] 0.25 mg PO BID 14 Days #30 tab 09/25/17 Rx Aspirin 325 mg PO DAILY tab 09/25/17 Rx Nitroglycerin Sl Tabs [Nitrostat] 0.4 mg SUBLINGUAL Q5M PRN tab 09/25/17 Rx Allergies Allergy/AdvReac Type Severity Reaction Status Date / Time azithromycin Allergy Anaphylaxis Verified 09/24/17 16:34 [From Zithromax Z-Bo] doxycycline Allergy Unknown Verified 09/24/17 16:34 Sulfa (Sulfonamide Allergy Anaphylaxis Verified 09/24/17 16:34 Antibiotics) Physical Exam Vitals: Vital Signs Temp Pulse Pulse Pulse Pulse Resp BP 09/25/17 12:00 97.8 F 99 16 09/25/17 07:42 98.3 F 71 16 09/25/17 04:00 97.9 F 86 68 16 09/25/17 00:00 98.2 F 86 15 09/24/17 23:49 0 L 86 16 09/24/17 20:22 80 09/24/17 20:12 84 09/24/17 19:55 76 16 09/24/17 19:17 98.1 F 83 15 09/24/17 16:55 98.0 F 76 16 09/24/17 16:36 68 18 146/72 09/24/17 14:51 69 09/24/17 14:32 72 18 138/73 09/24/17 13:25 98.5 F 73 20 152/72 BP Pulse Ox 09/25/17 12:00 164/78 95 09/25/17 07:42 117/60 93 L 09/25/17 04:00 126/61 96 09/25/17 00:00 113/55 96 09/24/17 23:49 09/24/17 20:22 09/24/17 20:12 95 09/24/17 19:55 09/24/17 19:17 113/55 94 L 09/24/17 16:55 134/79 98 09/24/17 16:36 97 05/20/18 14:51 09/24/17 14:32 96 09/24/17 13:25 100 Intake and Output 09/24/17 09/25/17 09/25/17 22:59 06:59 14:59 Intake Total 650 Balance 650 Intake: Oral 650 Other: Voiding Method Toilet # Voids 1 Weight 81.4 kg - Constitutional General appearance: no average body habitus, cooperative, no disheveled, no mild distress, no morbidly obese, no acute distress, no obese, no severe distress, no thin - EENT Eyes: no abnormal pupil, no anicteric sclerae, no disc margins sharp, no edentulous, no EOMI, no PERRLA, no fundus normal, no photophobia, no dentition normal, no poor dentition, no ptosis, no scleral icterus, normal appearance ENT: no hard of hearing, no hearing grossly normal, no NA/AT, normal oropharynx , no other, no pharyngeal erythema, no thrush, no tonsillar exudates, no tonsillar swelling Ears: bilateral: normal - Neck Neck: no lymphadenopathy, normal ROM, no other, no rigidity, no stridor, no thyromegaly Carotids: bilateral: upstroke normal, upstroke delayed Thyroid: bilateral: normal size - Respiratory Respiratory: bilateral: diminished, dullness - Cardiovascular Rhythm: regular Heart sounds: normal: S1, S2 Abnormal Heart Sounds: systolic murmur - Gastrointestinal General gastrointestinal: no absent bowel sounds, decreased bowel sounds, no distended, no hepatomegaly, no hyperactive bowel sounds, no normal bowel sounds , no organomegaly, no rigid, no scaphoid, soft, no splenomegaly, no tenderness, no umbilical hernia, no ventral hernia - Integumentary Integumentary: no calor, no cellulitis, no cyanotic, no decreased turgor, no flushed, no jaundiced, normal, no normal turgor, pale, no rash, no ulcer - Neurologic Neurologic: CNII-XII intact - Musculoskeletal Musculoskeletal: gait normal, generalized weakness, strength equal bilaterally, no right sided weakness, no left sided weakness - Psychiatric Psychiatric: A&O x's 3, appropriate affect Results CBC & Chem 7: 09/24/17 13:35 09/24/17 13:35 Labs: Abnormal Lab Results - Last 24 Hours (Table) 05/20/18 05/20/18 05/20/18 Range/Units 13:35 13:35 13:35 WBC 16.7 H (3.8-10.6) k/uL RBC 5.45 H (3.80-5.40) m/uL Hct 46.6 H (34.0-46.0) % Neutrophils # 12.3 H (1.3-7.7) k/uL Monocytes # 1.4 H (0-1.0) k/uL APTT (22.0-30.0) sec Sodium 136 L (137-145) mmol/L BUN 31 H (7-17) mg/dL AST 39 H (14-36) U/L ALT 60 H (9-52) U/L Total Creatine Kinase 23 L (30-135) U/L Triglycerides (<150) mg/dL HDL Cholesterol (40-60) mg/dL 09/24/17 09/24/17 09/24/17 Range/Units 13:35 13:55 20:49 WBC (3.8-10.6) k/uL RBC (3.80-5.40) m/uL Hct (34.0-46.0) % Neutrophils # (1.3-7.7) k/uL Monocytes # (0-1.0) k/uL APTT 20.9 L (22.0-30.0) sec Sodium (137-145) mmol/L BUN (7-17) mg/dL AST (14-36) U/L ALT (9-52) U/L Total Creatine Kinase <20 L (30-135) U/L Triglycerides 185 H (<150) mg/dL HDL Cholesterol 69 H (40-60) mg/dL 09/25/17 Range/Units 01:53 WBC (3.8-10.6) k/uL RBC (3.80-5.40) m/uL Hct (34.0-46.0) % Neutrophils # (1.3-7.7) k/uL Monocytes # (0-1.0) k/uL APTT (22.0-30.0) sec Sodium (137-145) mmol/L BUN (7-17) mg/dL AST (14-36) U/L ALT (9-52) U/L Total Creatine Kinase <20 L (30-135) U/L Triglycerides (<150) mg/dL HDL Cholesterol (40-60) mg/dL Thrombosis Risk Factor Assmnt - DVT/VTE Prophylaxis DVT/VTE Prophylaxis: Low risk, early ambulation encouraged - Choose All That Apply Any of the Below Risk Factors Present?: Yes Each Factor Represents 1 point: Obesity (BMI >25) Other Risk Factors: Yes Each Risk Factor Represents 3 Points: Age 75 years or older Thrombosis Risk Factor Assessment Total Risk Factor Score: 4 Thrombosis Risk Factor Assessment Level: Moderate Risk Assessment and Plan Plan: 1 atypical chest pain: Patient was hospitalized CK with troponin 3 will be done consult cardiology and further testing including but not limited to echo and stress test to be determined after seen cardiology and all dependent for troponin were positive patient might require heart cath otherwise continue medical management and follow as an outpatient. 2 presyncope: With patient been on steroid and had mild anxiety and panic attack could be steroid-related symptoms with her testing be negative patient will need to have longer term bit sander as an outpatient and furthermore if need tilt table study can be done. She keep having symptoms repeatedly patient might need an MRI of the brain and follow-up with neurology including an EEG if needed. 3 hypertension: Blood pressure has been well controlled on lisinopril and verapamil. 4 hyperlipidemia: Continue patient on atorvastatin 40 mg daily at bedtime. 5 arrhythmia: Continue verapamil ER 240 mg daily. 6 recent history of upper respiratory infection with mild asthma was seen Dr. Wilson and started on Medrol Dosepak along with antibiotics just finished her Medrol on Monday which can be a contributing factor to the anxiety and panic attack she had before admission. 7 depression: Has been on Zoloft 150 mg a day and remain on alprazolam 0.25 mg twice a day as needed. 8 DVT prophylaxis: Early mobilization and knee-high HARDIK hose. 9 GI prophylaxis: Patient be on Pepcid 20 mg daily. Admit patient to observation possibly discharge in 23 hours.
--- NOTE | 2017-09-25 13:42 | P.DS ---
Providers Date of admission: 09/24/17 16:16 Attending physician: Daphne Manning Consults: 09/24/17 16:16 Consult Physician Urgent Consulting Provider: Halina Garcia Consult Reason/Comments: cp,syncope Do you want consulting provider notified?: Yes Primary care physician: Saurabh [facility] Course: 77-year-old female one of Dr. Ramirez patient with past medical history of CAD, arrhythmia, hypertension hyperlipidemia who seen Dr. castle on at cardiology on regular basis had mild disease involving the first diagonal of the LAD heart catheterin 2011. Patient had an episode of presyncope like on this past week when she almost passed out had mild palpitation and slight chest tightness and pressure. Ended up doing a well all the way till 09/24/2017 when she had similar episode as well with presyncope like and mild palpitation with mild chest pain and pressure. Ended up coming to demurs department at [facility] with above problem was seen and evaluated her cardiac enzyme more and remarkable, CT of the brain did not show any abnormality. Her d-dimer was elevated patient ended up going for CTA which did not show any abnormality at the time and had no sign of PE. Patient was to the hospital kept on heart monitor and CK with troponin 3 were done. Patient was seen by horse rider morning and clear for discharge and to follow as an outpatient. Patient was seen and cleared by cardiology will be discharged home to have progressive workup as an outpatient. 1 atypical chest pain: Patient was hospitalized CK with troponin 3 will be done consult cardiology and further testing including but not limited to echo and stress test to be determined after seen cardiology and all dependent for troponin were positive patient might require heart cath otherwise continue medical management and follow as an outpatient. 2 presyncope: With patient been on steroid and had mild anxiety and panic attack could be steroid-related symptoms with her testing be negative patient will need to have longer term air sampling and monitoring as an outpatient and furthermore if need tilt table study can be done. She keep having symptoms repeatedly patient might need an MRI of the brain and follow-up with neurology including an EEG if needed. 3 hypertension: Blood pressure has been well controlled on lisinopril and verapamil. 4 hyperlipidemia: Continue patient on atorvastatin 40 mg daily at bedtime. 5 arrhythmia: Continue verapamil ER 240 mg daily. 6 recent history of upper respiratory infection with mild asthma was seen Dr. Wilson and started on Medrol Dosepak along with antibiotics just finished her Medrol on Monday which can be a contributing factor to the anxiety and panic attack she had before admission. 7 depression: Has been on Zoloft 150 mg a day and remain on alprazolam 0.25 mg twice a day as needed. Patient Condition at Discharge: Good Plan - Discharge Summary Discharge Rx Participant: Yes New Discharge Prescriptions: New ALPRAZolam [Xanax] 0.25 mg PO BID 14 Days #30 tab Aspirin 325 mg PO DAILY tab Nitroglycerin Sl Tabs [Nitrostat] 0.4 mg SUBLINGUAL Q5M PRN tab PRN Reason: Chest Pain Continue Budesonide [Pulmicort Flexhaler] 2 puff INHALATION RT-BID Lisinopril [Zestril] 2.5 mg PO DAILY Isosorbide Mononitrate ER [Imdur] 30 mg PO DAILY Verapamil HCl [Verapamil ER] 240 mg PO HS Atorvastatin [Lipitor] 40 mg PO HS Sertraline HCl [Zoloft] 150 mg PO HS Multivitamin/Iron/Folic Acid [Centrum Complete Multivit Tab] 1 tab PO DAILY Cetirizine HCl [Zyrtec] 10 mg PO DAILY Discharge Medication List Atorvastatin [Lipitor] 40 mg PO HS 02/05/15 [History] Budesonide [Pulmicort Flexhaler] 2 puff INHALATION RT-BID 02/05/15 [History] Isosorbide Mononitrate ER [Imdur] 30 mg PO DAILY 02/05/15 [History] Lisinopril [Zestril] 2.5 mg PO DAILY 02/05/15 [History] Sertraline HCl [Zoloft] 150 mg PO HS 02/05/15 [History] Verapamil HCl [Verapamil ER] 240 mg PO HS 02/05/15 [History] Multivitamin/Iron/Folic Acid [Centrum Complete Multivit Tab] 1 tab PO DAILY [History] Cetirizine HCl [Zyrtec] 10 mg PO DAILY 09/24/17 [History] ALPRAZolam [Xanax] 0.25 mg PO BID 14 Days #30 tab 09/25/17 [Rx] Aspirin 325 mg PO DAILY tab 09/25/17 [Rx] Nitroglycerin Sl Tabs [Nitrostat] 0.4 mg SUBLINGUAL Q5M PRN tab 09/25/17 [Rx] Follow up Appointment(s)/Referral(s): Tam Arceo MD [STAFF PHYSICIAN] - 10/10/17 4:45 pm Saurabh Garcia MD [Primary Care Provider] - 1-2 days Patient Instructions/Handouts: Chest Pain (ED), Syncope (ED) Discharge Disposition: HOME SELF-CARE
== END 2017-09-25 12:03 | disposition home or self-care (01) ==
LOC: EC 13:23 → 3OBS 16:16
PROVIDERS: ADMIT Internal Medicine; ATTEND Internal Medicine
DX: R07.89 Other chest pain (principal); R55 Syncope and collapse; M54.2 Cervicalgia; M54.9 Dorsalgia, unspecified; R51 Headache; R79.89 Other specified abnormal findings of blood chemistry; F41.0 Panic disorder [episodic paroxysmal anxiety]; F32.9 Major depressive disorder, single episode, unspecified; I49.9 Cardiac arrhythmia, unspecified; J06.9 Acute upper respiratory infection, unspecified; I25.10 Atherosclerotic heart disease of native coronary artery without angina pectoris; I10 Essential (primary) hypertension; E78.5 Hyperlipidemia, unspecified; J45.909 Unspecified asthma, uncomplicated; Z86.14 Personal history of Methicillin resistant Staphylococcus aureus infection; Z98.1 Arthrodesis status; Z80.6 Family history of leukemia; Z79.899 Other long term (current) drug therapy; Z79.51 Long term (current) use of inhaled steroids; Z88.2 Allergy status to sulfonamides; Z88.1 Allergy status to other antibiotic agents; E66.9 Obesity, unspecified; Z68.29 Body mass index [BMI] 29.0-29.9, adult; R32 Unspecified urinary incontinence; Z79.82 Long term (current) use of aspirin
CPT/HCPCS: 99285 ×2; 36415; 94760; 93005; 80061; 80053; 82550 ×2; 82553 ×2; 83690; 83735; 84484 ×2; 85025; 85610; 85730; 71046; 70450; 71275; G0378 ×2; Q9967

== ENCOUNTER 2018-10-01 08:03 | Emergency (ER) | payer MEDICARE, BC ==
[2018-10-01 08:08] VITALS: RESP 18
[2018-10-01] MEDS ORDERED: LIDOCAINE 1% INJ 10MG/ML (20 ML MDV) SQ ONE (08:29)
--- NOTE | 2018-10-01 08:30 | ED ---
Skin/Abscess/FB HPI - General Chief complaint: Skin/Abscess/Foreign Body Stated complaint: Abcess on back of thigh Time Seen by Provider: 10/01/18 08:11 Source: patient, RN notes reviewed, old records reviewed Mode of arrival: ambulatory - History of Present Illness Initial comments: (78-year-old female presents today with complaints of fatigue and increased sleeping for the past 3 days. She also complains of boil over the back of her thigh. She states she has a history of MRSA. When she had previous MRSA admit her for IV antibiotics. Patient has drug ALLERGIES to antibiotics that will treat for MRSA. Patient reports that he the area of abscess over the posterior thigh has increased in size. She denies any chest pain. Patient believes she has a chronic sinus infection and may have urinary tract infection. Patient states that she has no abdominal pain at this time. She denies any chest pain. She does report chronic shortness of breath due to history of COPD. - Related Data Home Medications Medication Instructions Recorded Confirmed Budesonide [Pulmicort Flexhaler] 2 puff INHALATION RT-BID 02/05/15 10/01/18 Isosorbide Mononitrate ER [Imdur] 30 mg PO DAILY 02/05/15 10/01/18 Sertraline HCl [Zoloft] 150 mg PO HS 02/05/15 10/01/18 Verapamil HCl [Verapamil ER] 240 mg PO HS 02/05/15 10/01/18 Multivitamin/Iron/Folic Acid 1 tab PO DAILY 02/18/15 10/01/18 [Centrum Complete Multivit Tab] Cetirizine HCl [Zyrtec] 10 mg PO HS 09/24/17 10/01/18 Previous Rx's Medication Instructions Recorded Nitroglycerin Sl Tabs [Nitrostat] 0.4 mg SUBLINGUAL Q5M PRN tab 09/25/17 Clindamycin [Cleocin] 450 mg PO TID 7 Days capsule 10/01/18 Allergies Allergy/AdvReac Type Severity Reaction Status Date / Time azithromycin Allergy Anaphylaxis Verified 10/01/18 09:32 [From Zithromax Z-Bo] doxycycline Allergy Unknown Verified 10/01/18 09:32 Sulfa (Sulfonamide Allergy Anaphylaxis Verified 10/01/18 09:32 Antibiotics) Review of Systems ROS Statement: Those systems with pertinent positive or pertinent negative responses have been documented in the HPI. ROS Other: All systems not noted in ROS Statement are negative. 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, L3-4-5 fused with metal Past Anesthesia/Blood Transfusion Reactions: No Reported Reaction Past Psychological History: Anxiety, Depression Smoking Status: Never smoker Past Alcohol Use History: Rare Past Drug Use History: None Reported - Past Family History Mother Family Medical History: Congestive Heart Failure (CHF) Son(s) Family Medical History: Cancer Additional Family Medical History / Comment(s): Leukemia Father Family Medical History: Renal Disease Additional Family Medical History / Comment(s): at 46. General Exam - General Exam Comments Initial Comments: 78-year-old female. Alert and oriented. No distress. General appearance: alert, in no apparent distress Head exam: Present: atraumatic, normocephalic, normal inspection Eye exam: Present: normal appearance, PERRL, EOMI. Absent: scleral icterus, conjunctival injection, periorbital swelling ENT exam: Present: normal exam, mucous membranes moist Neck exam: Present: normal inspection. Absent: tenderness, meningismus, lymphadenopathy Respiratory exam: Present: normal lung sounds bilaterally. Absent: respiratory distress, wheezes, rales, rhonchi, stridor Cardiovascular Exam: Present: regular rate, normal rhythm, normal heart sounds. Absent: systolic murmur, diastolic murmur, rubs, gallop, clicks GI/Abdominal exam: Present: soft, normal bowel sounds. Absent: distended, tenderness, guarding, rebound, rigid Extremities exam: Present: normal inspection, full ROM, normal capillary refill. Absent: tenderness, pedal edema, joint swelling, calf tenderness Back exam: Present: normal inspection Neurological exam: Present: alert, oriented X3, CN II-XII intact Psychiatric exam: Present: normal affect, normal mood Skin exam: Present: warm, dry, intact, normal color, other (Patient has a 2 cm abscess over the right posterior thigh.). Absent: rash Course Vital Signs 10/01/18 08:04 Temperature 97.9 F Pulse Rate 88 Respiratory 18 Rate Blood Pressure 155/83 O2 Sat by Pulse 96 Oximetry Procedures - Incision & Drainage Indication: abcess Site: lower extremity (R posterior thigh) Size (cm): 2 Amount (mLs): 5 I&D Cleaning Method: Iodine Sterile Field Used?: Yes Scalpel Used: #11 I&D Drainage Obtained: Pus, Blood Packing: Other (too small of abscess ) Culture Obtained?: Yes Complications: pain, bleeding Patient Tolerated Procedure: well, no complications Medical Decision Making - Medical Decision Making 78-year-old female process returns today with complaints of fatigue she also complains of abscess on the back of her thigh. Patient had incision and transverse with 1 mL of purulent fluid was removed. The abscess is small. Patient is concerned with her fatigue and checking blood work. White blood cell count, red blood cell count, and temperature panels are all reviewed and normal. She also concern for urinary tract infection. Urinalysis was completed. His evidence of some white blood cells. Urine culture will be completed. Patient was started on Rocephin for the abscess and slight UTI at this time. We'll discharge the Patient with a prescription per per clindamycin and she's had a history of MRSA. She is ALLERGIC to all other oral antibiotics to cover MRSA. Discussed close follow-up with PCP and return parameters were discussed. - Lab Data Result diagrams: 10/01/18 08:50 10/01/18 08:50 Lab Results 10/01/18 10/01/18 Range/Units 08:50 08:50 WBC 10.2 (3.8-10.6) k/uL RBC 4.96 (3.80-5.40) m/uL Hgb 13.6 (11.4-16.0) gm/dL Hct 42.2 (34.0-46.0) % MCV 85.1 (80.0-100.0) fL MCH 27.5 (25.0-35.0) pg MCHC 32.3 (31.0-37.0) g/dL RDW 15.1 (11.5-15.5) % Plt Count 300 (150-450) k/uL Neutrophils % 66 % Lymphocytes % 23 % Monocytes % 8 % Eosinophils % 1 % Basophils % 1 % Neutrophils # 6.7 (1.3-7.7) k/uL Lymphocytes # 2.4 (1.0-4.8) k/uL Monocytes # 0.8 (0-1.0) k/uL Eosinophils # 0.1 (0-0.7) k/uL Basophils # 0.1 (0-0.2) k/uL Sodium 140 (137-145) mmol/L Potassium 3.7 (3.5-5.1) mmol/L Chloride 103 (98-107) mmol/L Carbon Dioxide 31 H (22-30) mmol/L Anion Gap 6 mmol/L BUN 16 (7-17) mg/dL Creatinine 0.79 (0.52-1.04) mg/dL Est GFR (CKD-EPI)AfAm 85 (>60 ml/min/1.73 sqM) Est GFR (CKD-EPI)NonAf 74 (>60 ml/min/1.73 sqM) Glucose 86 (74-99) mg/dL Calcium 9.3 (8.4-10.2) mg/dL Disposition Clinical Impression: Abscess of thigh, UTI (urinary tract infection) Disposition: HOME SELF-CARE Condition: Good Instructions (If sedation given, give patient instructions): Abscess (ED) Additional Instructions: Follow-up with her primary care doctor tomorrow. Return to the emergency department if any alarming signs or symptoms occur. Prescriptions: Clindamycin [Cleocin] 450 mg PO TID 7 Days capsule Is patient prescribed a controlled substance at d/c from ED?: No Referrals: Saurabh Garcia MD [Primary Care Provider] - 1-2 days Time of Disposition: 11:13
[2018-10-01 09:09] LABS: Basophils # (A) 0.1 k/uL (0-0.2); Basophils % (A) 1 %; Eosinophils # (A) 0.1 k/uL (0-0.7); Eosinophils % (A) 1 %; HCT 42.2 % (34.0-46.0); HGB 13.6 gm/dL (11.4-16.0); Lymphocytes # (A) 2.4 k/uL (1.0-4.8); Lymphocytes % (A) 23 %; MCH 27.5 pg (25.0-35.0); MCHC 32.3 g/dL (31.0-37.0); MCV 85.1 fL (80.0-100.0); Monocytes # (A) 0.8 k/uL (0-1.0); Monocytes % (A) 8 %; Neutrophils # (A) 6.7 k/uL (1.3-7.7); Neutrophils % (A) 66 %; Platelet Count 300 k/uL (150-450); RBC 4.96 m/uL (3.80-5.40); RDW 15.1 % (11.5-15.5); WBC 10.2 k/uL (3.8-10.6)
[2018-10-01 09:16] LABS: Calcium 9.3 mg/dL (8.4-10.2); Potassium 3.7 mmol/L (3.5-5.1)
[2018-10-01] MEDS ORDERED: cefTRIAXone IN SWFI 1,000 MG/10 ML SYRINGE IVP STA (10:55)
[2018-10-01 11:18] LABS: Appearance,Urine Cloudy (Clear); Bilirubin,Urine Negative (Negative); Blood,Urine Trace (Negative); Color,Urine Yellow; Glucose,Urine (UA) Negative (Negative); Ketones,Urine Negative (Negative); Leukocyte Esterase,Urine Large (Negative); Nitrite,Urine Positive (Negative); Protein,Urine Trace (Negative); RBC,Urine 5 /hpf (0-5); Specific Gravity,Urine 1.015 (1.001-1.035); Urobilinogen,Urine <2.0 mg/dL (<2.0); WBC,Urine >182 /hpf (0-5)
[2018-10-01 12:01] VITALS: BP 130/80; PULSE 76; TEMP 98.2
== END 2018-10-01 11:50 | disposition home or self-care (01) ==
LOC: EC 08:03
DX: L02.415 Cutaneous abscess of right lower limb (principal); N39.0 Urinary tract infection, site not specified; R53.83 Other fatigue; R40.0 Somnolence; J44.9 Chronic obstructive pulmonary disease, unspecified; I10 Essential (primary) hypertension; F32.9 Major depressive disorder, single episode, unspecified; F41.9 Anxiety disorder, unspecified; Z88.1 Allergy status to other antibiotic agents; Z88.2 Allergy status to sulfonamides; Z79.51 Long term (current) use of inhaled steroids; Z79.899 Other long term (current) drug therapy; Z86.14 Personal history of Methicillin resistant Staphylococcus aureus infection; Z98.1 Arthrodesis status; Z84.1 Family history of disorders of kidney and ureter
CPT/HCPCS: 36415; 80048; 85025; 81001; 87070; 87086; 87205; 99283; 10060; 96374; J2001; J0696

== ENCOUNTER → 2018-10-04 | Outpatient (CLI) | payer MEDICARE, BC ==
--- NOTE | 2018-10-04 08:33 | CT ---
EXAMINATION TYPE: CT sinus wo con DATE OF EXAM: 10/04/2018 COMPARISON: NONE HISTORY: Chronic maxillary sinusitis CT DLP: 599.80 mGycm. Automated Exposure Control for Dose Reduction was Utilized. TECHNIQUE: CT scan of the sinuses is performed without contrast, axial images are obtained, coronal r eformatted images are also reviewed. FINDINGS: The paranasal sinuses are currently clear as are the anterior visualized portions of the ma stoid air cells and middle ear cavities other than ar 5 mm mucosal retention cyst of the inferior rig ht maxillary sinus on series 6 image 20. There is no nasal turbinate mucosal hypertrophy. There is a 4 mm leftward nasal septal spur however the nasal septum is overall midline. No Catherine cells or conch a bullosa are seen. The ostia medial complexes are patent as are the frontal recesses. Degenerative c hanges of the temporomandibular joints are seen bilaterally. Exam is not optimized for evaluation of intracranial structures. Orbits appear symmetric and unremarkable. IMPRESSION: 1. There is a 5 mm mucosal retention cyst within the right maxillary sinus dependently, otherwise the paranasal sinuses are clear and the ostiomeatal complex is patent bilaterally. The frontal recesses are also patent bilaterally. No Catherine cells or jacque bullosa. 2. Degenerative changes of the temporomandibular joints are moderate.
== END | disposition home or self-care (01) ==
LOC: RADCTMAIN 07:45
PROVIDERS: ATTEND Internal Medicine Critical Care Medicine
DX: J34.1 Cyst and mucocele of nose and nasal sinus (principal); J32.0 Chronic maxillary sinusitis; M26.69 Other specified disorders of temporomandibular joint
CPT/HCPCS: 70486

== ENCOUNTER → 2018-10-19 | Outpatient (CLI) | payer MEDICARE, BC ==
[2018-10-19 18:11] LABS: Vitamin D 25 Hydroxy 49.6 ng/mL (30.0-100.0)
[2018-10-20 08:30] LABS: HLA B27 NEGATIVE
== END | disposition home or self-care (01) ==
LOC: LABWHC1 12:48
PROVIDERS: ATTEND Otolaryngology
DX: M89.8X9 Other specified disorders of bone, unspecified site (principal); M26.629 Arthralgia of temporomandibular joint, unspecified side; R68.84 Jaw pain
CPT/HCPCS: 36415; 82306; 82330; 86431; 86812

== ENCOUNTER → 2018-10-22 | Outpatient (CLI) | payer MEDICARE, BC ==
--- NOTE | 2018-10-22 11:28 | XR ---
EXAMINATION TYPE: XR chest 2V DATE OF EXAM: 10/22/2018 COMPARISON: Prior chest x-ray 09/24/2017, CT 09/24/2017 HISTORY: Cough TECHNIQUE: Frontal and lateral views of the chest are obtained. FINDINGS: There is no focal air space opacity, pleural effusion, or pneumothorax seen. The cardiac silhouette size is stable and enlarged. Interstitium is noted to be increased as on prior exams. The osseous structures are intact. Surgical clips are present in the upper abdomen. IMPRESSION: Interstitial lung disease and cardiomegaly.
== END | disposition home or self-care (01) ==
LOC: RADXRMAIN 11:10
PROVIDERS: ATTEND Otolaryngology
DX: J84.9 Interstitial pulmonary disease, unspecified (principal); I51.7 Cardiomegaly
CPT/HCPCS: 71046

== ENCOUNTER → 2018-10-26 | Outpatient (CLI) | payer MEDICARE, BC ==
[2018-10-26 17:10] LABS: African American GFR (CKD) 63.4 (60.0-200.0); Albumin 4.3 g/dL (3.80-4.90); Albumin/Globulin Ratio 1.95 (1.60-3.17); Anion Gap 9.8 mmol/L (4.00-12.00); Calcium 9.5 mg/dL (8.7-10.3); Carbon Dioxide 27.2 mmol/L (21.6-31.8); Globulin 2.2 g/dL (1.6-3.3); LDL Cholesterol,Calculated 117.2 mg/dL (0.0-131.0); Potassium 3.3 mmol/L (3.5-5.5); Total Bilirubin 0.6 mg/dL (0.3-1.2); Total Protein 6.5 g/dL (6.2-8.2); VLDL Calculation 26.8 mg/dL (5.00-40.00)
[2018-10-26 17:27] LABS: T4, Free (Free Thyroxine) 0.9 ng/dL (0.80-1.80)
== END | disposition home or self-care (01) ==
LOC: LABWHC1 09:35
PROVIDERS: ATTEND Family Medicine
DX: E78.5 Hyperlipidemia, unspecified (principal); E04.1 Nontoxic single thyroid nodule
CPT/HCPCS: 36415; 80053; 80061; 84439; 84443

== ENCOUNTER → 2018-12-12 | Outpatient (CLI) | payer MEDICARE, BC ==
--- NOTE | 2018-12-13 13:53 | MM ---
Reason for exam: screening (asymptomatic). Last mammogram was performed 1 year ago. History: Patient is postmenopausal. Excisional biopsy of the right breast, November 2017. Took estrogen for 17 years 9 months. Physical Findings: A clinical breast exam by your physician is recommended on an annual basis and results should be correlated with mammographic findings. MG 3D Screening Mammo W/Cad Bilateral CC and MLO view(s) were taken. Prior study comparison: September 26, 2002, right breast diagnostic mammogram. December 27, 2001, bilateral screening mammogram. There are scattered fibroglandular densities. Benign calcifications. There is stable chronic nodularity in the left breast. No significant changes when compared with prior studies. ASSESSMENT: Benign, BI-RAD 2 RECOMMENDATION: Routine screening mammogram of both breasts in 1 year.
== END | disposition home or self-care (01) ==
LOC: RADMAMWWP 09:52
PROVIDERS: ATTEND Family Medicine
DX: Z12.31 Encounter for screening mammogram for malignant neoplasm of breast (principal)
CPT/HCPCS: 77063; 77067

== ENCOUNTER → 2019-01-03 | Outpatient (CLI) | payer MEDICARE, BC ==
[~2019-01-03] MED LIST: REGADENOSON 0.4 MG/5 ML SYRINGE IV ONE
--- NOTE | 2019-01-03 11:26 | EST ---
EXERCISE STRESS DATE OF SERVICE: 01/03/2019 AGE: 78 SEX: Female HT: 5'6" WT: 180 pounds PROTOCOL: Lexiscan Cardiolite STAGE: DURATION OF EXERCISE: HEART RATE REST: 70 BLOOD PRESSURE REST: 167/96 MAXIMUM HEART RATE ACHIEVED: 89 MAXIMUM BLOOD PRESSURE: 168/88 85% MPHR: 122 100% MPHR: 144 METS: INDICATIONS: Chest pain. CLINICAL INFORMATION: Baseline EKG shows sinus rhythm, normal axis, normal intervals. Patient was given intravenous Lexiscan as per protocol. Did not have chest pain or diagnostic ST-segment depression. CONCLUSIONS: 1. Negative stress test by EKG criteria. 2. Cardiolite portion of the stress test will be reported separately. MMODL / IJN: [id number] /
--- NOTE | 2019-01-03 12:45 | NM ---
EXAMINATION TYPE: NM stress cardiolite complete DATE OF EXAM: 01/03/2019 COMPARISON: NONE HISTORY: Chest pain TECHNIQUE: After the intravenous administration of 10.2 mCi Tc 99m Sestamibi - Rest images obtained 48 minutes post injection. The patient exercised using a FRANKO protocol and 1 minute prior to peak exercise was injected with 25.7 mCi Tc 99m Sestamibi - Stress images obtained 35 minutes post injecti on. FINDINGS: Targeted heart rate was achieved during performance of the study. Review of stress and rest SPECT peggy ges demonstrates no distinct perfusion abnormality. Gated analysis shows normal wall motion with an estimated left ventricular ejection fraction of 60 %. IMPRESSION: No scintigraphic evidence for reversible ischemia
--- NOTE | 2019-01-03 17:17 | ECHOF ---
Referral Reason:[facility] EKG R94.31 R07.89 chest pain... MEASUREMENTS -------- HEIGHT: 167.6 cm WEIGHT: 86.2 kg BP: RVIDd: 2.2 cm (< 3.3) IVSd: 1.3 cm (0.6 - 1.1) LVIDd: 3.2 cm (3.9 - 5.3) LVPWd: 1.5 cm (0.6 - 1.1) IVSs: 2.0 cm LVIDs: 1.7 cm LVPWs: 1.9 cm LAESV Index (A-L): 15.24 ml/m Ao Diam: 2.7 cm (2.0 - 3.7) AV Cusp: 1.3 cm (1.5 - 2.6) LA Diam: 3.7 cm (2.7 - 3.8) MV E Rei: 0.62 m/s MV DecT: 348 ms MV A Rei: 1.23 m/s MV E/A Ratio: 0.50 RAP: 5.00 mmHg RVSP: 21.55 mmHg FINDINGS -------- Sinus rhythm. This was a technically adequate study. The left ventricular size is normal. There is moderate concentric left ventricular hypertrophy. O verall left ventricular systolic function is normal with, an EF between 55 - 60 %. The diastolic fi lling pattern is normal for the age of the patient. The right ventricle is normal in size. Left atrium is normal size by volume. The right atrium was not well visualized. Interatrial and interventricular septum intact. There is mild aortic valve sclerosis without stenosis. There is no evidence of aortic regurgitation . There is no evidence of aortic stenosis. No mitral regurgitation. Mild tricuspid regurgitation present. There is no evidence of pulmonary hypertension. The right v entricular systolic pressure, as measured by Doppler, is 21.55mmHg. There is no pulmonic regurgitation present. The aortic root size is normal. The inferior vena cava was not well visualized. There is no pericardial effusion. CONCLUSIONS -------- 1. Sinus rhythm. 2. This was a technically adequate study. 3. The left ventricular size is normal. 4. There is moderate concentric left ventricular hypertrophy. 5. Overall left ventricular systolic function is normal with, an EF between 55 - 60 %. 6. The diastolic filling pattern is normal for the age of the patient. 7. The right ventricle is normal in size. 8. Left atrium is normal size by volume. 9. The right atrium was not well visualized. 10. Interatrial and interventricular septum intact. 11. There is mild aortic valve sclerosis without stenosis. 12. There is no evidence of aortic regurgitation. 13. There is no evidence of aortic stenosis. 14. No mitral regurgitation. 15. Mild tricuspid regurgitation present. 16. There is no evidence of pulmonary hypertension. 17. The right ventricular systolic pressure, as measured by Doppler, is 21.55mmHg. 18. There is no pulmonic regurgitation present. 19. The aortic root size is normal. 20. The inferior vena cava was not well visualized. 21. There is no pericardial effusion. [employer] SPECIALIST: Jeannette Yarbrough RDCS
== END | disposition home or self-care (01) ==
LOC: RADNMMAIN 07:49
PROVIDERS: ATTEND Family Medicine
DX: I11.9 Hypertensive heart disease without heart failure (principal); I07.1 Rheumatic tricuspid insufficiency; I35.8 Other nonrheumatic aortic valve disorders
CPT/HCPCS: 93017; 93306; 78452; A9500; J2785

== ENCOUNTER → 2019-11-06 | Outpatient (CLI) | payer MEDICARE, BC ==
--- NOTE | 2019-11-06 16:29 | CT ---
EXAMINATION TYPE: CT soft tissue neck w con DATE OF EXAM: 11/06/2019 3:37 PM COMPARISON: None HISTORY: Right ear pain, nasopharyngeal mass CT DLP: 682 mGycm Automated exposure control for dose reduction was used. CONTRAST: CT scan of the neck is performed following with IV Contrast, patient injected with 100 mL of Isovue 3 00. Axial images are obtained, coronal and sagittal reformatted images are reviewed. FINDINGS: Skull base is unremarkable. Airway: No gross abnormality seen. Interstitial changes are present at the lung apices, thickened int erlobular septal pleural lines. Parotid/submandibular glands: No gross abnormality seen. Carotid/Vascular Structures: Unremarkable enhancement, atheromatous changes are present at the caroti d bifurcation on the left. Osseous Structures: Degenerative disc changes are present with facet arthropathy, patient shows fusio n of 4 through C6, loss of the normal cervical lordosis. Lucency in the occipital bone likely due to arachnoid granulations. Other: Thyroid gland shows some low-attenuation foci suggesting underlying nodules. Dental amalgam ca uses streak artifact over portions of the exam. IMPRESSION: Degenerative disc disease and postop changes. Thyroid nodules. Interstitial lung disease .
== END | disposition home or self-care (01) ==
LOC: RADCTMAIN 14:39
PROVIDERS: ATTEND Otolaryngology
DX: E04.2 Nontoxic multinodular goiter (principal); J84.9 Interstitial pulmonary disease, unspecified; Z98.890 Other specified postprocedural states; H92.01 Otalgia, right ear; D37.05 Neoplasm of uncertain behavior of pharynx
CPT/HCPCS: 82565; 84520; 70491; 36415; Q9967

== ENCOUNTER → 2019-12-03 | Outpatient (CLI) | payer MEDICARE, BC ==
--- NOTE | 2019-12-04 11:06 | US ---
EXAMINATION TYPE: US thyroid st tissue head/neck DATE OF EXAM: 12/03/2019 COMPARISON: CT 2019, US 2014 CLINICAL HISTORY: E04.1 Thyroid nodule. GLAND SIZE: Right Lobe: 4.7 x 1.8 x 1.4 cm Overall Parenchyma: heterogenous Left Lobe: 4.1 x 1.4 x 1.2 cm Overall Parenchyma: heterogeneous Isthmus Thickness: 0.3 cm NODULES RIGHT: # of nodules measured on right: largest 3 of multiple 1. 0.7 X 0.5 x 0.5 cm hypoechoic cystic nodule at the upper pole with well-defined margins; interru pted peripheral calcification. This nodule is wide as is tall and shows no intranodular vascularity. Prior size: not correlated to US from 5 years ago 2. 0.6 X 0.5 x 0.5 cm hypoechoic cystic nodule at the upper medial pole with well-defined margins; i nterrupted peripheral calcification. This nodule is wide as is tall and shows no intranodular vascul arity. 3. 2.0 X 1.3 x 1.1 cm hypoechoic cystic nodule at the lower pole with well-defined margins; present with microcalcifications. This nodule is wider than tall and shows no intranodular vascularity. Thi s is more prominent than the 0.9 x 1.1 x 0.8 cm previous. LEFT: # of nodules measured on left: largest nodule measured with multiple small cysts 1. 1.1 X 0.9 x 0.8 cm isoechoic mixed consolidated nodule at the lower pole with irregular margins. This nodule is wider than tall and shows intranodular vascularity. Prior size: 1.5 x 1.3 x 1.0 cm ISTHMUS: # of nodules measured in the isthmus: 0 Bilateral neck scanned: no evidence of lymphadenopathy. IMPRESSION: 1. Enlarging inferior pole right lobe thyroid nodule
== END | disposition home or self-care (01) ==
LOC: RADUSWWP 16:38
PROVIDERS: ATTEND Otolaryngology
DX: E04.1 Nontoxic single thyroid nodule (principal); Z88.2 Allergy status to sulfonamides
CPT/HCPCS: 76536

== ENCOUNTER 2019-12-05 12:47 | Day surgery (SDC) | payer MEDICARE, BC ==
[2019-12-05] MEDS ORDERED: ALPRAZolam 0.25 MG TAB PO ONE (13:15)
[2019-12-05 13:32] VITALS: TEMP 98.4
[2019-12-05 15:05] VITALS: BP 143/74; PULSE 79; RESP 14
--- NOTE | 2019-12-05 15:45 | US ---
ULTRASOUND GUIDED FNA THYROID BIOPSY: CLINICAL HISTORY: Bilateral thyroid nodules requested for FNA FINDINGS: The procedure was explained to the patient. The risks, complications, benefits and alternatives were discussed and any questions were answered. Informed consent was obtained. Patient was placed supin e on the ultrasound table and prepped and draped in the usual sterile fashion. Utilizing a 25 gauge needle, five passes were made into the requested right and left thyroid nodule. Patient was stable throughout the procedure. Pathology is pending. All elements of maximal barrier technique were utilized. IMPRESSION: 1. Successful ultrasound guided FNA thyroid biopsy.
== END 2019-12-05 14:55 | disposition home or self-care (01) ==
LOC: RADPROMAIN 12:47
PROVIDERS: ATTEND Otolaryngology
DX: E04.2 Nontoxic multinodular goiter (principal)
CPT/HCPCS: 10005; 10006; 88173; 88305

== ENCOUNTER → 2019-12-11 | Outpatient (CLI) | payer MEDICARE, BC ==
--- NOTE | 2019-12-16 11:18 | MM ---
Reason for exam: screening (asymptomatic). Last mammogram was performed 1 year ago. History: Patient is postmenopausal. Excisional biopsy of the right breast, November 2017. Took hormonal contraceptives for 9 years. Took estrogen for 17 years 9 months. Physical Findings: A clinical breast exam by your physician is recommended on an annual basis and results should be correlated with mammographic findings. MG 3D Screening Mammo W/Cad Bilateral CC and MLO view(s) were taken. Prior study comparison: December 12, 2018, bilateral MG 3d screening mammo w/cad. November 29, 2017, mammogram, performed at [facility]. There are scattered fibroglandular densities. Benign appearing bilateral calcifications. No significant changes when compared with prior studies. ASSESSMENT: Benign, BI-RAD 2 RECOMMENDATION: Routine screening mammogram of both breasts in 1 year.
== END | disposition home or self-care (01) ==
LOC: RADMAMWWP 09:54
PROVIDERS: ATTEND Family Medicine
DX: Z12.31 Encounter for screening mammogram for malignant neoplasm of breast (principal)
CPT/HCPCS: 77063; 77067

== ENCOUNTER 2020-09-13 14:41 | Emergency (ER) | payer MEDICARE, BC ==
[2020-09-13 14:56] VITALS: PULSE 75; TEMP 98
[2020-09-13] MEDS ORDERED: ONDANSETRON 4 MG/2 ML VIAL IVP STA (15:12)
[2020-09-13] MEDS ORDERED: SODIUM CHLORIDE 0.9% 500 ML 500 ML IV ONE (15:12)
[2020-09-13] MEDS ORDERED: HYDROmorphone 0.5 MG/0.5 ML SYRINGE IVP STA ×2 (15:12→17:28)
--- NOTE | 2020-09-13 15:17 | ED ---
Headache HPI - General Chief Complaint: Headache Stated Complaint: headache/passing out/trouble urinating Time Seen by Provider: 09/13/20 14:58 Mode of arrival: ambulatory Limitations: no limitations - History of Present Illness Initial Comments: 72-year-old female presenting today for chief complaint of headache and inability to empty bladder.Pt states that she has had a headache "for two years straight" with maybe two days within last two years without a headache. Pt states that for the past two days the headache has been worse than baseline. pt states on her "bad days" she states she feels off balance and sometimes almost falls. Denies chest pain, dyspnea, syncope, fall, nausea, vomiting, fevers, neck stiffness, falls hx of aneursyms, hx of anticoagulation use. Patient denies back injuries falls, dysuria, urgency, frequency, or hematuria. states she feels like she has to go but cant. Patient denies weakness or sensation deficits of the LE, vision changes, speech changes/stroke like symptoms. Pt denies dizziness/sensation room is spinning or feeling light headed. pt denies additional complaints. she appears very well on arrival, nontoxic in no acute distress. - Related Data Home Medications Medication Instructions Recorded Confirmed Budesonide [Pulmicort Flexhaler] 2 puff INHALATION RT-BID 02/05/15 12/05/19 Isosorbide Mononitrate ER [Imdur] 30 mg PO DAILY 02/05/15 12/05/19 Sertraline HCl [Zoloft] 150 mg PO HS 02/05/15 12/05/19 Verapamil HCl [Verapamil ER] 240 mg PO HS 02/05/15 12/05/19 Multivitamin/Iron/Folic Acid 1 tab PO DAILY 02/18/15 12/05/19 [Centrum Complete Multivit Tab] Cetirizine HCl [Zyrtec] 10 mg PO DAILY 09/24/17 12/05/19 HYDROcodone/APAP 5-325MG [[place] 1 tab PO Q4HR PRN 11/27/19 12/05/19 5-325] Previous Rx's Medication Instructions Recorded Nitroglycerin Sl Tabs [Nitrostat] 0.4 mg SUBLINGUAL Q5M PRN tab 09/25/17 Allergies Allergy/AdvReac Type Severity Reaction Status Date / Time azithromycin Allergy Anaphylaxis Verified 05/09/21 14:56 [From Zithromax Z-Bo] doxycycline Allergy stops Verified 09/13/20 14:56 breathing Sulfa (Sulfonamide Allergy Anaphylaxis Verified 09/13/20 14:56 Antibiotics) Review of Systems ROS Statement: Those systems with pertinent positive or pertinent negative responses have been documented in the HPI. ROS Other: All systems not noted in ROS Statement are negative. 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, L3-4-5 fused with metal Past Anesthesia/Blood Transfusion Reactions: No Reported Reaction Past Psychological History: Anxiety, Depression Smoking Status: Never smoker Past Alcohol Use History: Rare Past Drug Use History: None Reported - Past Family History Mother Family Medical History: Congestive Heart Failure (CHF) Son(s) Family Medical History: Cancer Additional Family Medical History / Comment(s): Leukemia Father Family Medical History: Renal Disease Additional Family Medical History / Comment(s): at 46. General Exam - General Exam Comments Initial Comments: General: The patient is awake and alert, in no distress Eye: Pupils are equal, round and reactive to light, extra-ocular movements are intact. No nystagmus. There is normal conjunctiva bilaterally. No signs of ic terus. Ears, nose, mouth and throat: There are moist mucous membranes and no oral lesions. Neck: The neck is supple, there is no tenderness or JVD. Cardiovascular: There is a regular rate and rhythm. No murmur, rub or gallop is appreciated. Respiratory: Lungs are clear to auscultation, respirations are non-labored, breath sounds are equal. No wheezes, stridor, rales, or rhonchi. Musculoskeletal: Normal ROM, no tenderness. Strength 5/5. Sensation intact. Radial pulses equal bilaterally 2+. Neurological: A&O x 3. CN II-XII intact, There are no obvious motor or sensory deficits. Coordination appears grossly intact. Speech is normal. Skin: Skin is warm and dry and no rashes or lesions are noted. Psychiatric: Cooperative, appropriate mood & affect, normal judgment. Limitations: no limitations Course Vital Signs 09/13/20 09/13/20 09/13/20 14:53 15:24 18:14 Temperature 98.0 F 98.0 F Pulse Rate 75 75 Respiratory 17 16 16 Rate Blood Pressure 143/79 145/83 145/83 O2 Sat by Pulse 95 95 Oximetry - Reevaluation(s) Reevaluation #1: Pt stated that she had chest pain that last a few seconds. she states she gets anxiety and was upset. pt refused EKG, cardiac work up. I had attending talk to patient but she continued to refuse. Aware of risks (disability//heart failure) that we cannot r/o cardiac source without EKG additional labs and would recommend admission given age. pt continued to refuse. Medical Decision Making - Medical Decision Making 80-year-old female with headaches for 2 years she states she is seen over 12 specialist with a follow-up with a pain management/neurologist in the next week. pt states she has had a headache x 2 days that was slihgtly increased from baseline. Pt CT/CTA (-), No focal deficits dneies alarming characteristics. pt mentioned to nurse chest discomfort/anxiety (for a few seconds) but refused work up, my attending spoke with patient discussing risk of avoiding work up but pt continued to refuse. Pt discharged appearing well with outpatient evaluation. - Lab Data Result diagrams: 09/13/20 15:17 09/13/20 15:17 Lab Results 09/13/20 09/13/20 09/13/20 Range/Units 15:17 15:17 15:17 WBC 8.5 (3.8-10.6) k/uL RBC 4.97 (3.80-5.40) m/uL Hgb 14.0 (11.4-16.0) gm/dL Hct 42.5 (34.0-46.0) % MCV 85.5 (80.0-100.0) fL MCH 28.2 (25.0-35.0) pg MCHC 33.0 (31.0-37.0) g/dL RDW 13.2 (11.5-15.5) % Plt Count 289 (150-450) k/uL MPV 7.5 Neutrophils % 51 % Lymphocytes % 36 % Monocytes % 7 % Eosinophils % 3 % Basophils % 1 % Neutrophils # 4.3 (1.3-7.7) k/uL Lymphocytes # 3.1 (1.0-4.8) k/uL Monocytes # 0.6 (0-1.0) k/uL Eosinophils # 0.3 (0-0.7) k/uL Basophils # 0.1 (0-0.2) k/uL Sodium 139 (137-145) mmol/L Potassium 3.8 (3.5-5.1) mmol/L Chloride 102 (98-107) mmol/L Carbon Dioxide 28 (22-30) mmol/L Anion Gap 9 mmol/L BUN 14 (7-17) mg/dL Creatinine 0.97 (0.52-1.04) mg/dL Est GFR (CKD-EPI)AfAm 65 (>60 ml/min/1.73 sqM) Est GFR (CKD-EPI)NonAf 56 (>60 ml/min/1.73 sqM) Glucose 111 H (74-99) mg/dL Calcium 9.8 (8.4-10.2) mg/dL Total Bilirubin 0.5 (0.2-1.3) mg/dL AST 49 H (14-36) U/L ALT 36 H (4-34) U/L Alkaline Phosphatase 114 (38-126) U/L Total Protein 7.2 (6.3-8.2) g/dL Albumin 4.5 (3.5-5.0) g/dL Urine Color Yellow Urine Appearance Clear (Clear) Urine pH 6.5 (5.0-8.0) Ur Specific [place] 1.009 (1.001-1.035) Urine Protein Negative (Negative) Urine Glucose (UA) Negative (Negative) Urine Ketones Negative (Negative) Urine Blood Negative (Negative) Urine Nitrite Negative (Negative) Urine Bilirubin Negative (Negative) Urine Urobilinogen <2.0 (<2.0) mg/dL Ur Leukocyte Esterase Negative (Negative) Disposition Clinical Impression: Difficulty urinating, Headache, Anxiety Disposition: HOME SELF-CARE Condition: Good Instructions (If sedation given, give patient instructions): Acute Headache (ED) Additional Instructions: Please use medication as discussed. Please follow-up with family doctor in the next 2 days. Please return to emergency room if the symptoms increase or worsen or for any other concerns. Is patient prescribed a controlled substance at d/c from ED?: No Referrals: Tima Miller MD [Primary Care Provider] - 1-2 days Time of Disposition: 17:50
[2020-09-13 15:24] VITALS: BP 145/83; RESP 16
[2020-09-13 15:24] LABS: Basophils # (A) 0.1 k/uL (0-0.2); Basophils % (A) 1 %; Eosinophils # (A) 0.3 k/uL (0-0.7); Eosinophils % (A) 3 %; HCT 42.5 % (34.0-46.0); Lymphocytes # (A) 3.1 k/uL (1.0-4.8); Lymphocytes % (A) 36 %; MCH 28.2 pg (25.0-35.0); MCV 85.5 fL (80.0-100.0); Mean Platelet Volume 7.5; Monocytes # (A) 0.6 k/uL (0-1.0); Monocytes % (A) 7 %; Neutrophils # (A) 4.3 k/uL (1.3-7.7); Neutrophils % (A) 51 %; Platelet Count 289 k/uL (150-450); RBC 4.97 m/uL (3.80-5.40); RDW 13.2 % (11.5-15.5); WBC 8.5 k/uL (3.8-10.6)
[2020-09-13 15:34] LABS: Albumin 4.5 g/dL (3.5-5.0); Calcium 9.8 mg/dL (8.4-10.2); Potassium 3.8 mmol/L (3.5-5.1); Total Bilirubin 0.5 mg/dL (0.2-1.3); Total Protein 7.2 g/dL (6.3-8.2)
[2020-09-13 16:03] LABS: Appearance,Urine Clear (Clear); Bilirubin,Urine Negative (Negative); Blood,Urine Negative (Negative); Color,Urine Yellow; Glucose,Urine (UA) Negative (Negative); Ketones,Urine Negative (Negative); Leukocyte Esterase,Urine Negative (Negative); Nitrite,Urine Negative (Negative); PH, Urine 6.5 (5.0-8.0); Protein,Urine Negative (Negative); Specific Gravity,Urine 1.009 (1.001-1.035); Urobilinogen,Urine <2.0 mg/dL (<2.0)
--- NOTE | 2020-09-13 16:32 | CT ---
EXAMINATION TYPE: CT brain wo con DATE OF EXAM: 09/13/2020 COMPARISON: 09/24/2017 HISTORY: headache CT DLP: 1084.2 mGycm Automated exposure control for dose reduction was used. FINDINGS: The ventricles, basal cisterns and sulci over the convexities are mildly enlarged consistent with mil d generalized atrophy and consistent with the patient's age. There are small remote lacunar infarcts in left basal ganglia. No other abnormal density is seen thro ughout the brain parenchyma. There is no acute intra or extra-axial hemorrhage. Grossly the posterior fossa is unremarkable. Intraorbital contents appear normal and symmetric. Visualized paranasal sinuses are well aerated. IMPRESSION: Senescent changes as described above. No acute bleed or mass effect.
[2020-09-13] MEDS ORDERED: KETOROLAC 15 MG/ML 1 ML VIAL IVP STA (16:53)
--- NOTE | 2020-09-13 17:06 | CT ---
EXAMINATION TYPE: CT angio head neck DATE OF EXAM: 09/13/2020 HISTORY: headache COMPARISON: None CT DLP: 463.5 mGycm. Automated Exposure Control for Dose Reduction was Utilized. TECHNIQUE: CTA scan of the neck is performed with IV Contrast, patient injected with 65cc mL of Isov ue 370, axial images are obtained, coronal and sagittal reformatted images are reviewed. Three-D pauline nstructed images are created on an independent workstation and reviewed. FINDINGS: The brachiocephalic origins are widely patent without significant stenosis. There is eccentric calcification of the left carotid bifurcation the neck but no significant stenosis within the carotid arteries within the neck. Intracranially, there is no evidence of occlusive disease or sizable aneurysm sac or vascular malform ation. IMPRESSION: No significant abnormality is seen.
[2020-09-13] MEDS ORDERED: LORazepam 2 MG/ML INJ IV STA ×2 (17:48→17:51)
== END 2020-09-13 18:26 | disposition home or self-care (01) ==
LOC: EC 14:41
DX: R51.9 Headache, unspecified (principal); R39.198 Other difficulties with micturition; F41.9 Anxiety disorder, unspecified; J45.909 Unspecified asthma, uncomplicated; E78.5 Hyperlipidemia, unspecified; I10 Essential (primary) hypertension; F32.9 Major depressive disorder, single episode, unspecified; Z79.899 Other long term (current) drug therapy
CPT/HCPCS: 51798; 36415; 80053; 85025; 81003; 70496; 70450; 70498; 99284; 96374; 96375; 96361; J2060; J2405; J1885; J1170; Q9967

== ENCOUNTER → 2020-09-29 | Outpatient (CLI) | payer MEDICARE, BC ==
[2020-09-29 10:19] LABS: Appearance,Urine Clear (Clear); Bacteria,Urine Rare /hpf; Bilirubin,Urine Negative (Negative); Blood,Urine Negative (Negative); Color,Urine Yellow; Glucose,Urine (UA) Negative (Negative); Hyaline Casts,Urine 1 /lpf (0-2); Ketones,Urine Negative (Negative); Leukocyte Esterase,Urine Moderate (Negative); Mucus,Urine Few /hpf; Nitrite,Urine Negative (Negative); Protein,Urine Trace (Negative); Specific Gravity,Urine 1.017 (1.001-1.035); Squamous Epithelial Cell,Urine 5 /hpf (0-4); Urobilinogen,Urine <2.0 mg/dL (<2.0); WBC,Urine 4 /hpf (0-5)
[2020-09-29 15:28] LABS: Basophils # (A) 0.07 X 10*3/uL (0.00-0.10); Basophils % (A) 0.9 %; Eosinophils # (A) 0.18 X 10*3/uL (0.04-0.35); Eosinophils % (A) 2.2 %; HCT 43.4 % (37.2-46.3); HGB 13.7 g/dL (12.0-15.0); Lymphocytes # (A) 3.02 X 10*3/uL (0.90-5.00); Lymphocytes % (A) 37.7 %; MCHC 31.6 g/dL (32.0-37.0); MCV 88.8 fL (80.0-97.0); Mean Platelet Volume 10.7 fL (9.5-12.2); Monocytes # (A) 0.87 X 10*3/uL (0.20-1.00); Monocytes % (A) 10.9 %; Neutrophils # (A) 3.85 X 10*3/uL (1.80-7.70); Neutrophils % (A) 48.1 %; Platelet Count 333 X 10*3/uL (140-440); RBC 4.89 X 10*6/uL (4.10-5.20); WBC 8.01 X 10*3/uL (4.50-10.00)
[2020-09-29 20:43] LABS: African American GFR (CKD) 55.7 (60.0-200.0); Albumin 4.5 g/dL (3.80-4.90); Albumin/Globulin Ratio 1.96 (1.60-3.17); Anion Gap 13.9 mmol/L (4.00-12.00); BUN/Creat Ratio 16.36 Ratio (12.00-20.00); Calcium 9.4 mg/dL (8.7-10.3); Carbon Dioxide 24.1 mmol/L (21.6-31.8); Globulin 2.3 g/dL (1.6-3.3); Potassium 3.6 mmol/L (3.5-5.5); Total Bilirubin 0.4 mg/dL (0.2-1.2); Total Protein 6.8 g/dL (6.2-8.2)
== END | disposition home or self-care (01) ==
LOC: LABWHC1 09:35
PROVIDERS: ATTEND Family Medicine
DX: Z01.818 Encounter for other preprocedural examination (principal); I44.0 Atrioventricular block, first degree; R94.31 Abnormal electrocardiogram [ECG] [EKG]; I25.2 Old myocardial infarction
CPT/HCPCS: 36415; 80053; 81001; 85025; 93005

== ENCOUNTER → 2020-12-29 | Outpatient (CLI) | payer MEDICARE, BC ==
--- NOTE | 2020-12-31 09:31 | MM ---
Reason for exam: screening (asymptomatic). Last mammogram was performed 1 year and 1 month ago. History: Patient is postmenopausal. Excisional biopsy of the right breast, November 2017. Took hormonal contraceptives for 9 years. Took estrogen for 17 years 9 months. Physical Findings: A clinical breast exam by your physician is recommended on an annual basis and results should be correlated with mammographic findings. MG 3D Screening Mammo W/Cad Bilateral CC and MLO view(s) were taken. Prior study comparison: December 11, 2019, bilateral MG 3d screening mammo w/cad. December 12, 2018, bilateral MG 3d screening mammo w/cad. There are scattered fibroglandular densities. There is chronic nodularity in the left breast. Benign secretory, oil cyst and vascular calcifications. Stable anterior right MLO asymmetric density. ASSESSMENT: Benign, BI-RAD 2 RECOMMENDATION: Routine screening mammogram of both breasts in 1 year.
== END | disposition home or self-care (01) ==
LOC: RADMAMWWP 13:30
PROVIDERS: ATTEND Family Medicine
DX: Z12.31 Encounter for screening mammogram for malignant neoplasm of breast (principal); Z78.0 Asymptomatic menopausal state
CPT/HCPCS: 77063; 77067

== ENCOUNTER → 2021-09-16 | Outpatient (CLI) | payer MEDICARE, BC ==
--- NOTE | 2021-09-17 05:26 | MR ---
EXAMINATION TYPE: MR knee LT wo con DATE OF EXAM: 09/16/2021 COMPARISON: None HISTORY: Multiplanar multi echo imaging of the left knee without contrast. There is knee joint effusion. The anterior and posterior cruciate ligaments are intact. There is mild narrowing of the knee joint spaces. There is some mild thinning of the anterior horn of the lateral meniscus. There is also mild thinning of the anterior horn of the medial meniscus. No evidence of sig nificant meniscal tear. No evidence of a fracture. Patella is intact. Collateral ligaments appear intact. IMPRESSION: Moderate knee joint effusion. Mild arthritic joint space narrowing and degenerative thinning of the a nterior horn of the medial and lateral meniscus. No evidence of ligamentous tear.
== END | disposition home or self-care (01) ==
LOC: RADMRIMAIN 13:06
PROVIDERS: ATTEND Orthopaedic Surgery
DX: M17.12 Unilateral primary osteoarthritis, left knee (principal); M25.462 Effusion, left knee

== ENCOUNTER → 2021-10-22 | Outpatient (CLI) | payer MEDICARE, BC ==
[2021-10-22 18:10] LABS: Basophils # (A) 0.06 X 10*3/uL (0.00-0.10); Basophils % (A) 0.7 %; Eosinophils # (A) 0.13 X 10*3/uL (0.04-0.35); Eosinophils % (A) 1.4 %; HGB 14.2 g/dL (12.0-15.0); Immature Grans, Automated 0.2 %; Lymphocytes % (A) 24.4 %; MCH 28.1 pg (27.0-32.0); MCHC 31.6 g/dL (32.0-37.0); MCV 89.1 fL (80.0-97.0); Mean Platelet Volume 10.1 fL (9.5-12.2); Monocytes # (A) 0.94 X 10*3/uL (0.20-1.00); Monocytes % (A) 10.4 %; NRBC Per 100 WBC 0 /100 WBCS (0.0-0.0); Neutrophils # (A) 5.66 X 10*3/uL (1.80-7.70); Neutrophils % (A) 62.9 %; Platelet Count 270 X 10*3/uL (140-440); RBC 5.05 X 10*6/uL (4.10-5.20); RDW 14.2 % (11.5-14.5); WBC 9.01 X 10*3/uL (4.50-10.00)
[2021-10-22 19:43] LABS: Anion Gap 14.4 mmol/L (10.00-18.00); Carbon Dioxide 25.6 mmol/L (20.0-27.5); Potassium 3.8 mmol/L (3.5-5.5)
== END | disposition home or self-care (01) ==
LOC: LABWHC1 10:32
PROVIDERS: ATTEND Orthopaedic Surgery
DX: Z01.818 Encounter for other preprocedural examination (principal); M23.92 Unspecified internal derangement of left knee; R94.31 Abnormal electrocardiogram [ECG] [EKG]
CPT/HCPCS: 36415; 80051; 85025; 93005

== ENCOUNTER 2021-11-03 10:21 | Day surgery (SDC) | payer MEDICARE, BC ==
--- NOTE | 2021-11-02 19:26 | HP ---
HISTORY AND PHYSICAL DATE OF SURGERY: 11/03/2021 Cindi Martinez is a 81-year-old patient seen with progressive left knee pain. We discussed options for treatment. She elected to proceed with left knee arthroscopy. Consent was obtained. PAST MEDICAL HISTORY: Hypertension. SURGICAL HISTORY: Cervical fusion, lumbar fusion. DAILY MEDICATIONS: Verapamil, Zyrtec, gabapentin, simvastatin. SOCIAL HISTORY: She denies tobacco use. PHYSICAL EVALUATION OF THE LEFT KNEE: Range of motion is zero to 130. Mild effusion. Tenderness, lateral joint line. Positive lateral Maia's. Ligaments stable. Hip rotation without pain. Distal neurovascular exam is intact. Radiographs of the left knee revealed moderate osteoarthritic changes. MRI left knee revealed abnormal lateral meniscus and moderate effusion. IMPRESSION: 1. Internal derangement of left knee with lateral meniscal tear. 2. Hypertension. PLAN: Left knee arthroscopy with partial lateral meniscectomy and debridement. MMODL / IJN: [id number] /
[~2021-11-03 10:21] MED LIST changes: +DEXAMETHASONE SOD PHOSPHATE 4 MG/ML 1 ML VIAL IV ONE; +LACTATED RINGERS 1,000 ML IV SCH; +LIDOCAINE 1% (10MG/ML) FOR IV START INTRADERMA PRN; +MIDAZOLAM 2 MG/2 ML VIAL IV PRN; +ONDANSETRON 4 MG/2 ML VIAL IVP ONE; -REGADENOSON 0.4 MG/5 ML SYRINGE IV ONE; +fentaNYL (PF) 50 MCG/ML 2 ML AMP IVP PRN
[2021-11-03 10:43] VITALS: TEMP 97.4
[2021-11-03] MEDS ORDERED: fentaNYL (PF) 50 MCG/ML 2 ML AMP ONE (11:42)
[2021-11-03] MEDS ORDERED: LIDOCAINE 2% INJ 20 MG/ML (2 ML VIAL) ONE (11:42)
[2021-11-03] MEDS ORDERED: MIDAZOLAM 2 MG/2 ML VIAL ONE (11:42)
[2021-11-03] MEDS ORDERED: PROPOFOL 10 MG/ML 20 ML VIAL IV ONE (11:42)
--- NOTE | 2021-11-03 12:19 | P.OP ---
Date of Procedure: 11/03/21 Preoperative Diagnosis: Internal derangement left knee Postoperative Diagnosis: 1. Tear medial and lateral meniscus left knee 2. Reactive synovitis medial, lateral and suprapatellar compartments left knee Procedure(s) Performed: 1. Arthroscopic partial medial and lateral meniscectomy left knee 2. Arthroscopic partial synovectomy medial, lateral and suprapatellar compartments left knee Anesthesia: ABDIASA, local Surgeon: Osito Arias Estimated Blood Loss (ml): 7 Pathology: none sent Condition: stable Disposition: PACU Indications for Procedure: 81-year-old patient seen with progressive left knee pain. After having treatment options discussed, she elected to proceed with arthroscopy. Operative Findings: See description of procedure Description of Procedure: Patient was taken to the operative suite. Patient underwent a general anesthetic by the department of anesthesia. Patient was given preoperative antibiotics. The left lower extremity was placed in a well-padded arthroscopic leg garcia. The left leg was prepped and draped in the normal sterile orthopedic fashion. A lateral parapatellar and suprapatellar incision was made. Trochars were inserted. Arthroscopy was initiated. Suprapatellar pouch revealed diffuse thick reactive synovitis. The patellofemoral joint appeared to articulate congruently. There as grade 3/4 chondromalacia of the patellofemoral joint without evidence for osteochondral tearing. The scope was guided into the medial gutter. No loose bodies or plica were identified. The scope was then guided into the medial compartment. A medial parapatellar incision was made. Trocar inserted followed by probe. There was a radial tear posterior horn medial meniscus. There were grade 2 chondromalacia changes of the medial compartment with no tears. There was some thick reactive synovitis anteriorly. I performed a partial medial meniscectomy getting down to stable meniscal tissue. I performed a partial synovectomy. The residual meniscus was stable. There was good decompression of the synovitis. Scope and probe were then guided into the intercondylar notch. Cruciates were identified, probed and found to be table. The scope and probe were then guided into lateral compartment. There was a complex tear involving the mid body of the lateral meniscus. There were grade 2 chondromalacia changes of the lateral compartment with no tears. There was thick reactive synovitis anteriorly. I performed a partial lateral meniscectomy getting down to stable meniscal tissue. I performed a partial synovectomy decompressing the reactive synovitis. The residual meniscus was stable. There was good decompression of the synovitis. The scope was in guided back into the suprapatellar compartment. I introduced a motorized shaver into the suprapatellar compartment. I debrided out some piecemeal fragments of meniscus that I encountered. I performed a partial synovectomy. The shaver was now removed. There was good decompression of the synovitis. I now took one more look around the entire knee, no residual debris. Instruments were now removed from the joint. The joint was infiltrated with .25% Marcaine. Steri-Strips were applied to the portal sites. Sterile dressings were applied. The patient was placed into a HARDIK hose. No tourniquet was utilized. The patient was awakened, transferred to a bed and taken to recovery stable satisfactory condition.
[2021-11-03 12:20] VITALS: RESP 16
[2021-11-03] MEDS: HYDROmorphone 0.5 MG/0.5 ML SYRINGE IVP PRN ×3 (12:28→13:12)
[2021-11-03] MEDS ORDERED: KETOROLAC 15 MG/ML 1 ML VIAL IVP ONE (12:49)
[2021-11-03] MEDS ORDERED: hydrALAZINE HCL 20 MG/ML 1 ML VIAL IVP ONE (12:58)
[2021-11-03 14:06] VITALS: BP 155/76; PULSE 86
== END 2021-11-03 14:30 | disposition home or self-care (01) ==
LOC: OR 10:21
PROVIDERS: ATTEND Orthopaedic Surgery
DX: S83.242A Other tear of medial meniscus, current injury, left knee, initial encounter (principal); S83.272A Complex tear of lateral meniscus, current injury, left knee, initial encounter; M23.92 Unspecified internal derangement of left knee; M65.862 Other synovitis and tenosynovitis, left lower leg; M94.262 Chondromalacia, left knee; I10 Essential (primary) hypertension; E78.5 Hyperlipidemia, unspecified; J45.909 Unspecified asthma, uncomplicated; X58.XXXA Exposure to other specified factors, initial encounter; Z98.1 Arthrodesis status; Z79.899 Other long term (current) drug therapy; Z88.2 Allergy status to sulfonamides; Z88.8 Allergy status to other drugs, medicaments and biological substances
CPT/HCPCS: 29880; J2250; J0360; J1100; J0690; J2405; J3010; J1885; J2704; J1170; J2001

== ENCOUNTER → 2021-12-30 | Outpatient (CLI) | payer MEDICARE, BC ==
--- NOTE | 2021-12-31 08:49 | MM ---
Reason for Exam: Screening (asymptomatic). Last screening mammogram was performed 12 month(s) ago. Patient History: Menarche at age 14. Left ovary removed at age 44. Right ovary removed at age 44. Hysterectomy at age 44. Postmenopausal. Estrogen for 17 years, 9 months. Patient used Hormonal Contraceptives for 9 years. 11/2017, Excisional Biopsy on the Right side. Risk Values: Nataliya 5 year model risk: 1.4%. NCI Lifetime model risk: 2.4%. Prior Study Comparison: 12/12/2018 Bilateral Screening Mammogram, [facility]. 12/11/2019 Bilateral Screening Mammogram, [facility]. 12/29/2020 Bilateral Screening Mammogram, [facility]. Tissue Density: The breast tissue is almost entirely fat. Findings: Analyzed By CAD. There is no suspicious group of microcalcifications or new suspicious mass in either breast. Scattered benign-appearing calculations. Overall Assessment: Benign, BI-RAD 2 Management: Screening Mammogram of both breasts in 1 year. A clinical breast exam by your physician is recommended on an annual basis and results should be correlated with mammographic findings. Electronically signed and approved by: Walker Fiore DO
== END | disposition home or self-care (01) ==
LOC: RADMAMWWP 08:54
PROVIDERS: ATTEND Family Medicine
DX: Z12.31 Encounter for screening mammogram for malignant neoplasm of breast (principal); Z78.0 Asymptomatic menopausal state
CPT/HCPCS: 77063; 77067

== ENCOUNTER → 2022-08-04 | Outpatient (CLI) | payer MEDICARE, BC ==
--- NOTE | 2022-08-04 14:39 | US ---
EXAMINATION TYPE: US venous doppler duplex LE DATE OF EXAM: 08/04/2022 1:54 PM COMPARISON: NONE CLINICAL HISTORY: M54.51 LUMBAGO WITH SCIATICA. No hx of DVT. Patient does not take blood thinners. P ain in both legs. Left leg pain is worse. SIDE PERFORMED: Bilateral TECHNIQUE: The lower extremity deep venous system is examined utilizing real time linear array sonog britton with graded compression, doppler sonography and color-flow sonography. VESSELS IMAGED: Common Femoral Vein Deep Femoral Vein Greater Saphenous Vein * Femoral Vein Popliteal Vein Small Saphenous Vein * Proximal Calf Veins (* superficial vessels) Right Leg: No evidence of DVT. Left Leg: No evidence of DVT. IMPRESSION: No evidence for deep vein to most of the bilateral lower extremity's.
== END | disposition home or self-care (01) ==
LOC: RADUSWWP 13:05
PROVIDERS: ATTEND Family Medicine
DX: M54.41 Lumbago with sciatica, right side (principal); M79.651 Pain in right thigh
CPT/HCPCS: 93922; 93970

== ENCOUNTER → 2022-09-06 | Outpatient (CLI) | payer MEDICARE, BC ==
--- NOTE | 2022-09-06 20:31 | MR ---
EXAMINATION TYPE: MR hip LT wo con DATE OF EXAM: 09/06/2022 COMPARISON: None. HISTORY: Pelvic and Left Hip Pain for 8 months Standard multiplanar, multisequence MRI departmental protocol Multiplanar, multisequence images of the pelvis were acquired without contrast. FINDINGS: Moderate to severe superior joint space loss in both hips is present. There are small symme tric hip joint effusions bilaterally. Femoral head shapes are maintained bilaterally. Mild to moderat e acetabular spurring is seen bilaterally. No suspicious increase T2 signal to suggest edema. No serp iginous diminished T1 signal to suggest avascular necrosis. Muscle bulk is maintained bilaterally. No groin hernia or adenopathy is seen. There are diverticula in the sigmoid colon. Uterus is surgically absent or markedly atrophic. No conc erning pelvic fluid collection is seen. Artifact from posterior surgical hardware L4-L5 level is inci dentally noted. IMPRESSION: Degenerative changes left hip as detailed above.
== END | disposition home or self-care (01) ==
LOC: RADMRIMAIN 16:47
PROVIDERS: ATTEND Family Medicine
DX: M16.12 Unilateral primary osteoarthritis, left hip (principal)

== ENCOUNTER → 2022-10-31 | Outpatient (CLI) | payer MEDICARE, BC ==
[2022-10-31 15:36] LABS: Prothrombin Time 10.5 sec (9.0-12.0)
[2022-10-31 21:03] LABS: Blood Urea Nitrogen 15.8 mg/dL (9.0-27.0); Carbon Dioxide 26.4 mmol/L (21.6-31.8); Chloride 99 mmol/L (96-109); Glucose 170 mg/dL (70-110); Magnesium 2.3 mg/dL (1.5-2.4); Potassium 3.8 mmol/L (3.5-5.5); Sodium 138 mmol/L (135-145)
[2022-10-31 21:34] LABS: Basophils # (A) 0.06 X 10*3/uL (0.00-0.10); Basophils % (A) 0.9 %; Eosinophils # (A) 0.14 X 10*3/uL (0.04-0.35); Eosinophils % (A) 2.1 %; HCT 44.5 % (37.2-46.3); HGB 13.7 d/dL (12.0-15.0); Lymphocytes # (A) 2.06 X 10*3/uL (0.90-5.00); Lymphocytes % (A) 30.2 %; MCH 27.2 pg (27.0-32.0); MCHC 30.8 d/dL (32.0-37.0); MCV 88.5 FL (80.0-97.0); Mean Platelet Volume 10.8 FL (9.5-12.2); Monocytes # (A) 0.66 X 10*3/uL (0.20-1.00); Monocytes % (A) 9.7 %; NRBC Per 100 WBC 0 X 10*3/uL (0.00-0.01); Neutrophils # (A) 3.87 X 10*3/uL (1.80-7.70); Neutrophils % (A) 56.8 %; Platelet Count 309 X 10*3/uL (140-440); RBC 5.03 X 10*6/uL (4.10-5.20); RDW 13.3 % (11.5-14.5); WBC 6.81 X 10*3/uL (4.50-10.00)
== END | disposition home or self-care (01) ==
LOC: LABPAT 13:32
PROVIDERS: ATTEND Orthopaedic Surgery
DX: Z01.812 Encounter for preprocedural laboratory examination (principal); Z22.322 Carrier or suspected carrier of Methicillin resistant Staphylococcus aureus; M16.12 Unilateral primary osteoarthritis, left hip
CPT/HCPCS: 36415; 80051; 82565; 82947; 83735; 84520; 85025; 85610; 87070

== ENCOUNTER 2022-11-09 05:33 | Day surgery (SDC) | payer MEDICARE, BC ==
--- NOTE | 2022-11-08 13:32 | HP ---
HISTORY AND PHYSICAL DATE OF SURGERY: 11/09/2022. HISTORY OF PRESENT ILLNESS: Cindi Martinez is an 82-year-old patient seen with symptomatic left hip osteoarthritis, failing conservative treatment measures. We discussed options. She elected to proceed with direct anterior left total hip arthroplasty. Consent regarding the procedure was obtained. Medical clearance was provided by Dr. Miller, pulmonary clearance by Dr. Wilson. PAST MEDICAL HISTORY: Hypertension, hyperlipidemia. PAST SURGICAL HISTORY: Cervical fusion, lumbar fusion. DAILY MEDICATIONS: Verapamil, gabapentin, simvastatin, hydrocodone. ALLERGIES: Sulfa. SOCIAL HISTORY: She denies tobacco use. PHYSICAL EXAMINATION: Evaluation of left hip, diffuse tenderness about the hip girdle. Limited range of motion, severe pain. Positive hip impingement sign. Straight-leg raise negative. Distal neurovascular exam intact. RADIOGRAPHS: Radiographs of the left hip reveal severe osteoarthritic changes. IMPRESSION: 1. Left hip osteoarthritis. 2. Hypertension. 3. Hyperlipidemia. PLAN: Direct anterior left total hip arthroplasty. MMODL / IJN: [id number] /
[~2022-11-09 05:33] MED LIST changes: +ACETAMINOPHEN TAB 500 MG TAB PO PRN; -DEXAMETHASONE SOD PHOSPHATE 4 MG/ML 1 ML VIAL IV ONE; -LACTATED RINGERS 1,000 ML IV SCH; -LIDOCAINE 1% (10MG/ML) FOR IV START INTRADERMA PRN; +MELOXICAM 7.5 MG TAB PO PRN; -MIDAZOLAM 2 MG/2 ML VIAL IV PRN; -ONDANSETRON 4 MG/2 ML VIAL IVP ONE; +TRANEXAMIC 1,000 MG/100ML-NACL 1,000 MG in SALINE 1 100ML.BAG IVPB PRN; -fentaNYL (PF) 50 MCG/ML 2 ML AMP IVP PRN
[2022-11-09] MEDS ORDERED: DEXAMETHASONE SOD PHOSPHATE 4 MG/ML 1 ML VIAL IV ONE (05:56)
[2022-11-09] MEDS ORDERED: ONDANSETRON 4 MG/2 ML VIAL IVP ONE (05:56)
[2022-11-09] MEDS ORDERED: LIDOCAINE 1% (10MG/ML) FOR IV START INTRADERMA PRN (05:56)
[2022-11-09] MEDS ORDERED: MIDAZOLAM 2 MG/2 ML VIAL IV PRN (05:56)
[2022-11-09] MEDS: LACTATED RINGERS 1,000 ML IV SCH ×2 (06:09→10:10)
[2022-11-09] MEDS ORDERED: fentaNYL (PF) 50 MCG/ML 2 ML AMP IVP ONE (06:51)
[2022-11-09] MEDS ORDERED: MIDAZOLAM 2 MG/2 ML VIAL IVP ONE (06:51)
--- NOTE | 2022-11-09 07:52 | P.ANPRN ---
Procedure Note - Anesthesia - Nerve Block Performed Left Nick Single Time Out Performed: Yes Date of Procedure: 11/09/22 Procedure Start Time: 06:50 Procedure Stop Time: 06:58 Location of Patient: PreOp Indication: Acute Post-Operative Pain, Requested by Surgeon Specifically requested for management of pain by DrLynda: Osito Arias Sedation Type: Sedate with meaningful contact maintained Preparation: Sterile Prep Position: Supine Needle Types: Pajunk Needle Gauge: 21 Ultrasound used to visualize needle placement: Yes Ultrasound used to observe medication spread: Yes Injectate: 0.5% Ropivacaine (see comment for volume) (20 ml +10 ml NS + 4mg dexamethasone) Blood Aspirated: No Pain Paresthesia on Injection Noted: No Resistance on Injection: Normal Image Stored and Saved: Yes Events: Uneventful and Well Tolerated
[2022-11-09] MEDS ORDERED: ceFAZolin 1,000 MG in SODIUM CHLORIDE 0.9% 1,000 ML IRRIGATION ONE (08:00)
[2022-11-09] MEDS ORDERED: ONDANSETRON 4 MG/2 ML VIAL IVP PRN (09:08)
[2022-11-09] MEDS ORDERED: NALOXONE 0.4 MG/ML 1 ML VIAL IV PRN (09:08)
[2022-11-09] MEDS ORDERED: HYDROcodone/APAP 5-325MG 1 EACH TAB PO PRN (09:08)
[2022-11-09] MEDS ORDERED: HYDROmorphone 0.5 MG/0.5 ML SYRINGE IVP PRN ×2 (09:08)
--- NOTE | 2022-11-09 09:08 | P.OP ---
Date of Procedure: 11/09/22 Preoperative Diagnosis: Left hip osteoarthritis Postoperative Diagnosis: Left hip osteoarthritis Procedure(s) Performed: Direct anterior left total hip arthroplasty Implants: 1. Jeannine Corail 125 standard collar size 11 press-fit femoral stem 2. Alden Sebec 54 mm press-fit acetabular shell 3. Alden pinnacle dual mobility liner 54/47 4. Jeannine bi-mentum altrx liner 47/28 5. Alden Biolox delta ceramic femoral head revision 28 mm +1.5 Anesthesia: regional (erector spinae block), spinal Surgeon: Osito Arias Dry Goods Inspector #1: Jaylen Sun Estimated Blood Loss (ml): 75 Pathology: none sent Condition: stable Disposition: PACU Indications for Procedure: 82-year-old patient seen with symptomatic left hip osteoarthritis. After treatment options were discussed, she elected to proceed with direct anterior left total hip arthroplasty. Operative Findings: See description of procedure Description of Procedure: The patient was taken to the operative suite. Patient underwent a spinal anesthetic by the department of anesthesia. Patient was then transferred to the [place] table. Patient was given preoperative IV antibiotics and TXA. Both lower extremities were placed in standard leg spars. The hip was then prepped and draped in the normal sterile orthopedic fashion. A standard anterior incision was made beginning 3 cm lateral and 1 cm distal to the ASIS extending 10 cm. Dissection was then carried down through the subcutaneous soft tissues down to the fascia overlying the tensor fascia radha. An incision was now made through the fascia. Careful dissection was taken down exposing the tensor fascia radha muscle. A Cobra retractor was now placed along the medial femoral neck and a second one along the lateral femoral neck. The venous circumflex vessels were now identified, cauterized and clipped. We identified the anterior hip capsule. An incision was made through the hip capsule along the lateral border. I performed a partial anterior capsulectomy. Retractors were now placed around the femoral neck itself. A femoral neck cut was now made with a sagittal saw. It was completed with an osteotome at the lateral neck area. The femoral head was now removed without difficulty. The extremity was now rotated to 60 of external rotation. It was locked in position. Residual labrum was now debrided out. Serial reaming was performed of the acetabulum while Marcelino MARTINEZ assisted holding an anterior retractor for exposure. Once we reached the appropriate size and a trial was position and fit nicely. The appropriate size was now chosen opened and made available. It was introduced into the acetabulum without difficulty. The C-arm/fluoroscopy was now brought into the operative field. We made sure we had a true AP pelvic view. We now under direct C- arm/fluoroscopy introduced into the acetabular component with appropriate version and inclination. I held the cup in appropriate position well Marcelino MARTINEZ used a mallet to seat the acetabular component. I noted the component now to be well seated and stable. Acetabular cup introduce her was removed. The C-arm was pulled back. I decided to proceed with a dual mobility construct as patient had a history of lumbar spine fusion. I introduced a Sebec dual mobility liner 54/47. Once it was felt to be well-positioned we tapped it down. It was felt to be stable. At this point retractors were removed. The extremity was now placed into 120 external rotation with no traction. The leg was now dropped to the ground and adducted. Appropriate retractors were now positioned along the proximal femur. We also placed our femoral look into position. Additional capsular releasing was performed to gain access to the proximal femur. We now used a box osteotome. A canal finder was now utilized. Serial broaching was now performed with the assistance of Marcelino MARTINEZ tapping the broaches down with a mallet while held the broach in appropriate rotation and position. This was done until we reached the appropriate size with good overall rotational stability. Appropriate calcar planing was performed. A trial dual mobility head/neck was placed into position. The hip was now reduced. The C-arm/fluoroscopy was brought back into the operative field. I obtained AP pelvis which demonstrated adequate level alignment. The trial components appeared adequately size and positioned. The C-arm/fluoroscopy was pulled back. Retractors were repositioned and the hip was dislocated. The leg was again taken down to the ground and adducted. Appropriate retractors were repositioned as well as the femoral hook. All trial components were removed. The femoral implant was opened along with the femoral head. The femoral implant was introduced on the appropriate handle into our pre-broached area. I held the component position well Marcelino MARTINEZ used a mallet to seat the femoral component. The femoral component was now noted to be well seated and stable. With assistance of Marcelino MARTINEZ the head/liner construct was assembled on the back table. The dual mobility head/liner was introduced with good positioning and fixation noted. Retractors were now removed. The hip was now reduced. There appeared be good positioning of the hip confirmed on intraoperative fluoroscopy. Spot films were obtained to document this. A second gram of TXA was given. The deep and superficial soft tissues were infiltrated with local analgesic. Bipolar cautery had been utilized intermittently through the procedure for hemostasis. The wound was irrigated copiously with pulse lavage mechanical irrigation. The fascia was repaired with Vicryl suture. The subcutaneous soft tissues were repaired in layers with Vicryl suture. The skin was approximated with pernio/Dermabond. Sterile dressings were applied. Patient was then awakened, transferred to a bed and taken to recovery in stable condition. Marcelino MARTINEZ assisted with the complex procedure.
[2022-11-09] MEDS ORDERED: SODIUM CHLORIDE 0.9% 1,000 ML IV SCH (09:15)
--- NOTE | 2022-11-09 09:19 | FL ---
EXAMINATION TYPE: FL guidance operating room DATE OF EXAM: 11/09/2022 HISTORY: Fluoroscopy time Total dose area product (DAP) in uGy*m?, mGy*cm? (or similar): 0.6898 IMPRESSION: 1. Fluoroscopy time.
--- NOTE | 2022-11-09 09:31 | XR ---
EXAMINATION TYPE: XR Hip Limited LT DATE OF EXAM: 11/09/2022 COMPARISON: NONE HISTORY: Postoperative change TECHNIQUE: One view submitted. FINDINGS: There is postsurgical change compatible of hip replacement surgery. IMPRESSION: 1. Postoperative change.
[2022-11-09] MEDS: HYDROmorphone 0.5 MG/0.5 ML SYRINGE IVP PRN ×4 (11:04→19:10)
[2022-11-09] MEDS ORDERED: ALPRAZolam 0.5 MG TAB PO PRN (15:53)
[2022-11-09] MEDS: FLUTICASONE 110 MCG INHALER INHALATION SCH (19:47)
[2022-11-09] MEDS: VIT A,C & E-LUTEIN-MINERALS 1 EACH TAB PO SCH (20:36)
[2022-11-09] MEDS: HYDROcodone/APAP 7.5-325MG 1 EACH TAB PO PRN (20:42)
[2022-11-09] MEDS ORDERED: SERTRALINE 100 MG TAB PO SCH (21:00)
[2022-11-09] MEDS ORDERED: VERAPAMIL SR 240 MG TABLET.ER PO SCH (21:00)
[2022-11-09] MEDS ORDERED: SENNOSIDES-DOCUSATE SODIUM 1 EACH TAB PO SCH (21:00)
[2022-11-10] MEDS: HYDROcodone/APAP 7.5-325MG 1 EACH TAB PO PRN ×3 (01:48→13:50)
[2022-11-10] MEDS: HYDROmorphone 0.5 MG/0.5 ML SYRINGE IVP PRN (04:36)
[2022-11-10 07:39] VITALS: BP 162/76; PULSE 86; RESP 16; TEMP 98
[2022-11-10] MEDS: FLUTICASONE 110 MCG INHALER INHALATION SCH (08:29)
[2022-11-10] MEDS ORDERED: FAMOTIDINE 20 MG TAB PO SCH (09:00)
[2022-11-10] MEDS ORDERED: ATORVASTATIN 10 MG TAB PO SCH (09:00)
[2022-11-10] MEDS ORDERED: ENOXAPARIN 40 MG/0.4 ML SYRINGE SQ SCH (09:00)
[2022-11-10] MEDS ORDERED: LORATADINE 10 MG TAB PO SCH (09:00)
[2022-11-10] MEDS ORDERED: ISOSORBIDE MONONITRATE ER 30 MG TAB.ER.24H PO SCH (09:00)
[2022-11-10] MEDS: VIT A,C & E-LUTEIN-MINERALS 1 EACH TAB PO SCH (09:21)
[2022-11-10] MEDS ORDERED: PANTOPRAZOLE 40 MG/10 ML VIAL IVP SCH (10:00)
--- NOTE | 2022-11-10 10:08 | P.PN ---
Subjective Progress Note Date: 11/10/22 Principal diagnosis: Status post direct anterior left total hip arthroplasty Patient was evaluated today at bedside, she is resting in her hospital chair. Patient's is present today at bedside. She was able to ambulate very well with physical therapy, she did do the stairs. She does complain of some vague discomfort in the thigh when weightbearing. She has been urinating with no issues. She denies any headaches, lightheadedness, chest pain, shortness of breath, nausea or vomiting. Objective - Vital Signs Vital signs: Vital Signs Temp 98.0 F 11/10/22 07:03 Pulse 86 11/10/22 07:03 Resp 16 11/10/22 07:03 BP 162/76 11/10/22 07:03 Pulse Ox 96 11/10/22 07:03 FiO2 Intake & Output 11/09/22 11/10/22 11/10/22 18:59 06:59 18:59 Intake Total 1201 Output Total 75 Balance 1126 Weight 76.9 kg Intake: IV 1201 Output: Estimated Blood Loss 75 Other: Voiding Method Toilet # Voids 2 3 - Exam Left lower extremity: Incision is clean, dry, and intact. The foam dressing is in good condition. [Ther is minimal soft tissue swelling and ecchymosis surrounding the medial and lateral aspects of the incision.] Caf is soft, no tenderness with palpation. Plantar flexion, dorsiflexion, EHL, FHL are intact. Sensory exam to light touch throughout the extremity is intact, [dorsl pedis pulses 2+.] Assessment and Plan Assessment: Postoperative day #1 status post direct anterior left total hip arthroplasty Plan: Pain control, plan for discharge on [place] 7.5 mg/325 mg DVT prophylaxis, aspirin 81 mg twice a day for 30 days Wound care instructions discussed, this to include damage instructions along with showering Home therapy and nursing after discharge Medical recommendations Discharge planning: Patient stable for discharge home today Time with Patient: Less than 30
--- NOTE | 2022-11-10 10:14 | P.DS ---
Providers Date of admission: 11/09/2022 Expected date of discharge: 11/10/22 Attending physician: Osito Arias Consults: 11/09/22 09:08 Consult Physician Routine Consulting Provider: Tima Miller Reason/Comments: Medical management Do you want consulting provider notified?: Yes Primary care physician: Tima Miller Hospital Course: Date of admission: 11/09/2022 Date of discharge: 11/10/2022 Admission diagnosis: Status post direct anterior left total hip arthroplasty Discharge diagnosis: Same Attending physician: Dr. Arias Surgical procedures: direct anterior left total hip arthroplasty Brief history: Patient is a a 82-year-old female with a history of progressive primary left hip osteoarthritis. At this point patient has failed conservative treatment measures and has opted to proceed with a elective direct anterior left total hip arthroplasty. Hospital course: Details of patient's surgery can be found in operative report. Patient tolerated the procedure well and was subsequently transported to orthopedic floor. Patient's orthopeidc and medical care was provided daily. Patient had daily laboratory tests performed for evaluation of overall blood counts. Patient had daily physical therapy to include strengthening range of motion as well as education with walker ambulation. Patient was treated with Lovenox for their postoperative DVT prophylaxis during their inpatient stay. Patient was noted to have a relatively uneventful postoperative course. Patient reported satisfactory pain control with oral pain medications by postoperative day 0. Patient showed satisfactory progress with physical therapy. Patient moved steadily through the program and had no difficulty meeting the goals by postoperative day 1. Given patient's otherwise satisfactory course and having met physical therapy goals, plan is to discharge patient home on postoperative day 1. Discharge condition/disposition: Patient will be discharged home in stable condition. Discharge medications: Instructions are given on resumption of patient's normal daily medications per primary care recommendation, in addition patient will be prescribed [place] 7.5 mg/325 mg, senna S, aspirin 81 mg. Discharge instructions: 1. Wound care and infection precautions, keep incision dry and covered while showering, no lotions, creams, moisturizers. No soaking, tubs, pools, hottubs. Do not scrub over the incision. 2. Weight-bear as tolerated with walker / cane until follow-up. 3. Ice and elevate when necessary. Do not exceed 20 minutes per hour with ice pack. 4. Utilize compression sleeve until seen at first follow up appointment. 5. Visiting nursing care. 6. Home physical therapy. 7. Pain meds and anticoagulants per prescription. 8. Pain medication has potential to cause constipation. Increase oral fluid and fiber intake. Contact primary care provider if you have not had a bowel movement within 48 hours after discharge 9. No anti-inflammatory medication until discussed at first post operative visit, this including Motrin, Aleve, Mobic, Diclofenac 10. Follow up in office at 2 weeks postop with Marcelino Sun PA-C/Hemal [place] 11. Follow up with your primary care doctor 7-10 days after discharge. 12. Contact [facility] with any questions, . Procedures: Direct anterior left total hip arthroplasty Patient Condition at Discharge: Good Plan - Discharge Summary Discharge Rx Participant: No New Discharge Prescriptions: New Sennosides/Docusate Sodium [Senna-S 8.6-50 mg Tablet] 2 each PO DAILY PRN #30 tablet PRN Reason: Constipation Aspirin [Adult Low Dose Aspirin EC] 81 mg PO BID #60 tab HYDROcodone/APAP 7.5-325MG [[place] 7.5] 1 each PO Q6HR PRN #28 tab PRN Reason: Pain No Action Budesonide [Pulmicort Flexhaler] 2 puff INHALATION RT-BID Isosorbide Mononitrate ER [Imdur] 30 mg PO DAILY Verapamil HCl [Verapamil ER] 240 mg PO HS Sertraline HCl [Zoloft] 200 mg PO HS Cetirizine HCl [Zyrtec] 10 mg PO DAILY ALPRAZolam [Xanax] 0.5 mg PO DAILY PRN PRN Reason: Anxiety Vit C/E/Zn/Coppr/Lutein/Zeaxan [Preservision Areds 2 Chew Tab] 1 tab PO BID Simvastatin [Zocor] 20 mg PO DAILY HYDROcodone/APAP 5-325MG [[place] 5-325] 1 tab PO Q6HR PRN #28 tab PRN Reason: Pain Discharge Medication List Budesonide [Pulmicort Flexhaler] 2 puff INHALATION RT-BID 02/05/15 [History] Isosorbide Mononitrate ER [Imdur] 30 mg PO DAILY 02/05/15 [History] Sertraline HCl [Zoloft] 200 mg PO HS 02/05/15 [History] Verapamil HCl [Verapamil ER] 240 mg PO HS 02/05/15 [History] Cetirizine HCl [Zyrtec] 10 mg PO DAILY 09/24/17 [History] ALPRAZolam [Xanax] 0.5 mg PO DAILY PRN 11/01/21 [History] Simvastatin [Zocor] 20 mg PO DAILY 11/01/21 [History] Vit C/E/Zn/Coppr/Lutein/Zeaxan [Preservision Areds 2 Chew Tab] 1 tab PO BID 11/01/21 [History] HYDROcodone/APAP 5-325MG [[place] 5-325] 1 tab PO Q6HR PRN #28 tab 11/03/21 [Rx] Aspirin [Adult Low Dose Aspirin EC] 81 mg PO BID #60 tab 11/10/22 [Rx] HYDROcodone/APAP 7.5-325MG [[place] 7.5] 1 each PO Q6HR PRN #28 tab 11/10/22 [Rx] Sennosides/Docusate Sodium [Senna-S 8.6-50 mg Tablet] 2 each PO DAILY PRN #30 tablet 11/10/22 [Rx] Follow up Appointment(s)/Referral(s): [facility], [NON-STAFF] - Tima Miller MD [Primary Care Provider] - 1 Week Jaylen Sun PAC [PHYSICIAN [employer]] - 2 Weeks Activity/Diet/Wound Care/Special Instructions: Orthopedic Discharge Instructions: 1. Wound care and infection precautions, keep incision dry and covered while showering, no lotions, creams, moisturizers. No soaking, pools, hot tubs. Do not scrub over incision. 2. Weight-bear as tolerated with walker / cane until follow-up. 3. Ice and elevate when necessary. Do not exceed 20 minutes per hour with ice pack. 4. Utilize compression sleeve until seen at first follow up appointment. 5. Pain meds and anticoagulants per prescription. 6. Pain medication has potential to cause constipation. Increase oral fluid and fiber intake. Contact primary care provider if you have not had a bowel movement within 48 hours after discharge. 7. No anti-inflammatory medication until discussed at first post operative visit, this including Motrin, Aleve, Mobic, Diclofenac. 8. Follow up in office at 2 weeks postop with Marcelino Sun PA-C/Hemal Stevens PA-C 9. Follow up with your primary care doctor 7-10 days after discharge. 10. Contact [facility] with any questions, . Wound care instructions: 1. Okay to remove surgical dressing as of 11/16/2022 2. Okay to shower directly over the incision after removal of dressing Discharge Disposition: HOME WITH HOME HEALTH SERVICES
[2022-11-10 11:52] LABS: HCT 36.5 % (37.2-46.3); HGB 11.6 d/dL (12.0-15.0); MCH 27.9 pg (27.0-32.0); MCHC 31.8 d/dL (32.0-37.0); MCV 87.7 FL (80.0-97.0); Mean Platelet Volume 10.7 FL (9.5-12.2); NRBC Per 100 WBC 0 X 10*3/uL (0.00-0.01); Platelet Count 254 X 10*3/uL (140-440); RBC 4.16 X 10*6/uL (4.10-5.20); RDW 13.3 % (11.5-14.5); WBC 12.18 X 10*3/uL (4.50-10.00)
[2022-11-10 13:09] LABS: Basophils # (A) 0.01 X 10*3/uL (0.00-0.10); Basophils % (A) 0.1 %; Eosinophils # (A) 0 X 10*3/uL (0.04-0.35); Eosinophils % (A) 0 %; Lymphocytes % (A) 11.5 %; Monocytes # (A) 1.51 X 10*3/uL (0.20-1.00); Monocytes % (A) 12.4 %; Neutrophils # (A) 9.21 X 10*3/uL (1.80-7.70); Neutrophils % (A) 75.6 %; RBC Morphology Normal (Normal)
--- NOTE | 2022-11-10 15:00 | P.CONS ---
History of Present Illness - Reason for Consult Consult date: 11/10/22 Medical management hypertension Requesting physician: Osito Arias - Chief Complaint Progressive left hip osteoarthritis, status post direct anterior left total - History of Present Illness This is a 82-year-old female with past medical history of asthma, hypertension, osteoarthritis, MRSA, Lumbar surgical repair, anxiety, depression and multiple other medical issues, status post direct anterior left total hip arthroplasty secondary to progressive primary left hip osteoarthritis. Tolerated procedure well. Pain controlled. Ambulating with PT, tolerated exertion well. Denies lightheadedness, dizziness or focal deficits. Denies chest pain, palpitations or shortness of breath. Good diet intake, no nausea vomiting diarrhea. Passing flatus. Afebrile, WBC 12.18. Review of Systems Constitutional: Denied any fatigue denied any fever. Cardio vascular: denied any chest pain, palpitations Gastrointestinal denied any nausea vomiting Pulmonary: Denied any shortness of breath cough Neurologic denied any new focal deficits ROS Statement: Those systems with pertinent positive or pertinent negative responses have been documented in the HPI. ROS Other: All systems not noted in ROS Statement are negative. Past Medical History Past Medical History: Asthma, Hypertension, Osteoarthritis (OA) Additional Past Medical History / Comment(s): elevated heart rate History of Any Multi-Drug Resistant Organisms: MRSA Year Discovered:: 09/2013 MDRO Source:: bowels Past Surgical History: Back Surgery, Cholecystectomy, Heart Catheterization, Hysterectomy Additional Past Surgical History / Comment(s): T3-4-5 fused with cadaver bones, L3-4-5 fused with metal Past Anesthesia/Blood Transfusion Reactions: No Reported Reaction Additional Past Anesthesia/Blood Transfusion Reaction / Comm: no blood tx hx Past Psychological History: Anxiety, Depression Additional Psychological History / Comment(s): Usually has a very big reason to have an anxiety attack. Smoking Status: Never smoker Past Alcohol Use History: Rare Past Drug Use History: None Reported - Past Family History Mother Family Medical History: Congestive Heart Failure (CHF) Sister(s) Family Medical History: Cancer Additional Family Medical History / Comment(s): pancreatic Son(s) Family Medical History: Cancer Additional Family Medical History / Comment(s): Leukemia Father Family Medical History: Renal Disease Additional Family Medical History / Comment(s): at 46. Medications and Allergies Home Medications Medication Instructions Recorded Confirmed Type Budesonide [Pulmicort Flexhaler] 2 puff INHALATION RT-BID 02/05/15 11/09/22 History Isosorbide Mononitrate ER [Imdur] 30 mg PO DAILY 02/05/15 11/09/22 History Sertraline HCl [Zoloft] 200 mg PO HS 02/05/15 11/09/22 History Verapamil HCl [Verapamil ER] 240 mg PO HS 02/05/15 11/09/22 History Cetirizine HCl [Zyrtec] 10 mg PO DAILY 09/24/17 11/09/22 History ALPRAZolam [Xanax] 0.5 mg PO DAILY PRN 11/01/21 11/09/22 History Simvastatin [Zocor] 20 mg PO DAILY 11/01/21 11/09/22 History Vit C/E/Zn/Coppr/Lutein/Zeaxan 1 tab PO BID 11/01/21 11/09/22 History [Preservision Areds 2 Chew Tab] HYDROcodone/APAP 5-325MG [[place] 1 tab PO Q6HR PRN #28 tab 11/03/21 11/09/22 Rx 5-325] Aspirin [Adult Low Dose Aspirin EC] 81 mg PO BID #60 tab 11/10/22 Rx Famotidine [Pepcid] 20 mg PO DAILY tab 11/10/22 Rx HYDROcodone/APAP 7.5-325MG [[place] 1 each PO Q6HR PRN #28 tab 11/10/22 Rx 7.5] Sennosides/Docusate Sodium 2 each PO DAILY PRN #30 tablet 11/10/22 Rx [Senna-S 8.6-50 mg Tablet] Allergies Allergy/AdvReac Type Severity Reaction Status Date / Time azithromycin Allergy Anaphylaxis Verified 11/09/22 06:42 [From Zithromax Z-Bo] doxycycline Allergy stops Verified 11/09/22 06:42 breathing Sulfa (Sulfonamide Allergy Anaphylaxis Verified 11/09/22 06:42 Antibiotics) Physical Exam Vitals: Vital Signs Temp Pulse Pulse Resp BP Pulse Ox 11/10/22 07:03 98.0 F 86 16 162/76 96 11/10/22 01:28 98.2 F 96 18 154/84 96 11/09/22 19:38 98.2 F 99 18 134/71 97 11/09/22 15:26 97.8 F 94 17 158/79 95 11/09/22 14:00 92 16 137/76 98 11/09/22 13:30 87 16 149/89 99 11/09/22 13:00 84 16 136/83 98 11/09/22 12:30 81 16 142/85 98 Intake and Output 11/09/22 11/10/22 11/10/22 22:59 06:59 14:59 Other: Voiding Method Toilet Toilet # Voids 2 3 Weight 76.9 kg PHYSICAL EXAM: VITAL SIGNS: As above GENERAL: Sitting up in chair, no acute distress HEENT: Normocephalic, atraumatic, Conjunctivae normal. eyes normal. NECK: Supple, No JVD. No thyroid enlargement. No LNs CARDIOVASCULAR: S1, S2 regular.. No murmur RESPIRATION: Equal air entry, Breath sounds diminished in the bases. No rhonchi or crackles. No bronchial breathing. ABDOMEN: Soft, nondistended, nontender . No guarding. no masses palpable. No ascites, No hepatosplenomegaly.Bowel sounds heard. LOWER EXTREMITIES: Left hip dressing clean dry and intact, minimal edema, no calf tenderness, positive DP pulse. PSYCHIATRY: Alert and oriented X3, mood and affect normal. NERVOUS SYSTEM: Cranial N 2-12 grossly normal. Moves all 4 limbs. No focal deficits. Strength and sensation grossly intact. Skin: Warm and dry, no rash Results CBC & Chem 7: 11/10/22 06:30 Labs: Abnormal Lab Results - Last 24 Hours (Table) 11/10/22 Range/Units 06:30 WBC 12.18 H (4.50-10.00) X 10*3/uL Hgb 11.6 L (12.0-15.0) d/dL Hct 36.5 L (37.2-46.3) % MCHC 31.8 L (32.0-37.0) d/dL Assessment and Plan Assessment: Progressive left hip osteoarthritis, as status post direct anterior left total hip arthroplasty Hypertension Asthma, chronic Anxiety Depression Plan: Continue on current medication regime ,monitoring and symptomatic treatment. Pain management, DVT prophylaxis as per primary. Discharge planning in progress for today as per orthopedic surgery. Maintain aggressive pulmonary toileting. PT. Follow up with PCP in one week. Thank you for the consult. The impression and plan of care has been dictated as directed. : I performed a history and examination of this patient, discussed the same with the dictator. I agree with the dictator's note ,documented as a scribe. Any additional findings or plans will be noted.
== END 2022-11-10 14:15 | disposition home health service (06) ==
LOC: OR 05:33 → 4SSUR 09:17 → OR 11-10 14:15
PROVIDERS: ATTEND Orthopaedic Surgery
DX: M16.12 Unilateral primary osteoarthritis, left hip (principal); G89.18 Other acute postprocedural pain; I10 Essential (primary) hypertension; E78.5 Hyperlipidemia, unspecified; Z98.1 Arthrodesis status; Z79.52 Long term (current) use of systemic steroids; Z79.899 Other long term (current) drug therapy; Z88.2 Allergy status to sulfonamides
CPT/HCPCS: 27130; 94640 ×2; 97161; 97166; 64447; 86900; 86901; 85025; 86850; 73501; C1776; J2250; J1100; J0690 ×2; J2405; J1650; J3010; C9113; J1170 ×2

== ENCOUNTER 2022-11-10 16:14 | Emergency (ER) | payer MEDICARE, BC ==
--- NOTE | 2022-11-10 16:31 | ED ---
General Adult HPI - General Stated complaint: fall Time Seen by Provider: 11/10/22 16:19 Source: patient, family, EMS, RN notes reviewed Mode of arrival: EMS Limitations: no limitations - History of Present Illness Initial comments: Patient is a pleasant 82-year-old female presenting to the emergency Department with left hip pain. Onset of symptoms was just prior to arrival. Patient does had surgery done yesterday. Left hip. Patient tripped on her walker. Patient fell forward and then landed on the left, walker following that. Patient complains of discomfort that is improved following morphine by EMS. Patient did not attempt to ambulate. No other area of injury or concern. No head injury. - Related Data Home Medications Medication Instructions Recorded Confirmed Budesonide [Pulmicort Flexhaler] 2 puff INHALATION RT-BID 02/05/15 11/09/22 Isosorbide Mononitrate ER [Imdur] 30 mg PO DAILY 02/05/15 11/09/22 Sertraline HCl [Zoloft] 200 mg PO HS 02/05/15 11/09/22 Verapamil HCl [Verapamil ER] 240 mg PO HS 02/05/15 11/09/22 Cetirizine HCl [Zyrtec] 10 mg PO DAILY 09/24/17 11/09/22 ALPRAZolam [Xanax] 0.5 mg PO DAILY PRN 11/01/21 11/09/22 Simvastatin [Zocor] 20 mg PO DAILY 11/01/21 11/09/22 Vit C/E/Zn/Coppr/Lutein/Zeaxan 1 tab PO BID 11/01/21 11/09/22 [Preservision Areds 2 Chew Tab] Previous Rx's Medication Instructions Recorded HYDROcodone/APAP 5-325MG [Procious 1 tab PO Q6HR PRN #28 tab 11/03/21 5-325] Aspirin [Adult Low Dose Aspirin EC] 81 mg PO BID #60 tab 11/10/22 Famotidine [Pepcid] 20 mg PO DAILY tab 11/10/22 HYDROcodone/APAP 7.5-325MG [Procious 1 each PO Q6HR PRN #28 tab 11/10/22 7.5] Sennosides/Docusate Sodium 2 each PO DAILY PRN #30 tablet 11/10/22 [Senna-S 8.6-50 mg Tablet] Allergies Allergy/AdvReac Type Severity Reaction Status Date / Time azithromycin Allergy Anaphylaxis Verified 11/09/22 06:42 [From Zithromax Z-Bo] doxycycline Allergy stops Verified 11/09/22 06:42 breathing Sulfa (Sulfonamide Allergy Anaphylaxis Verified 11/09/22 06:42 Antibiotics) Review of Systems ROS Statement: Those systems with pertinent positive or pertinent negative responses have been documented in the HPI. ROS Other: All systems not noted in ROS Statement are negative. Constitutional: Denies: fever Eyes: Denies: eye pain ENT: Denies: ear pain Respiratory: Denies: cough Cardiovascular: Denies: chest pain Endocrine: Denies: fatigue Gastrointestinal: Denies: abdominal pain Genitourinary: Denies: dysuria Musculoskeletal: Reports: as per HPI Skin: Denies: rash Neurological: Denies: weakness 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 Smoking Status: Never smoker Past Alcohol Use History: Rare Past Drug Use History: None Reported - Past Family History Mother Family Medical History: Congestive Heart Failure (CHF) Sister(s) Family Medical History: Cancer Additional Family Medical History / Comment(s): pancreatic Son(s) Family Medical History: Cancer Additional Family Medical History / Comment(s): Leukemia Father Family Medical History: Renal Disease Additional Family Medical History / Comment(s): at 46. General Exam Limitations: no limitations General appearance: alert, in no apparent distress Head exam: Present: normocephalic Eye exam: Present: normal appearance, PERRL ENT exam: Present: normal oropharynx Neck exam: Present: normal inspection. Absent: tenderness Respiratory exam: Present: normal lung sounds bilaterally Cardiovascular Exam: Present: regular rate, normal rhythm Expanded Peripheral pulses: 2+: Dorsalis Pedis (R), Dorsalis Pedis (L) GI/Abdominal exam: Present: soft. Absent: tenderness Extremities exam: Present: tenderness (Tenderness left anterior and lateral hip. Pain with range of motion. Distally the extremity is neurovascular intact.) Back exam: Present: normal inspection Neurological exam: Present: alert. Absent: motor sensory deficit Psychiatric exam: Present: normal affect, normal mood Skin exam: Present: normal color Course Vital Signs 11/10/22 16:32 Temperature 98.2 F Pulse Rate 74 Respiratory 18 Rate Blood Pressure 151/81 O2 Sat by Pulse 96 Oximetry Medical Decision Making - Medical Decision Making Was pt. sent in by a medical professional or institution (, JUAN, DISTRIBUTION OPERATION SUPERVISOR, urgent care, hospital, or senior care...) When possible be specific @ -No Did you speak to anyone other than the patient for history (EMS, parent, family, police, friend...)? What history was obtained from this source @ - present and helps provide history including how fall occurred Did you review nursing and triage notes (agree or disagree)? Why? @ -I reviewed and agree with nursing and triage notes Were old charts reviewed (outside hosp., previous admission, EMS record, old EKG, old radiological studies, urgent care reports/EKG's, senior care records)? Report findings @ -Previous admission reviewed and surgical Differential Diagnosis (chest pain, altered mental status, abdominal pain women, abdominal pain men, vaginal bleeding, weakness, fever, dyspnea, syncope, headache, dizziness, GI bleed, back pain, seizure, CVA, palpatations, mental health, musculoskeletal)? @ -not applicable EKG interpreted by me (3pts min.). @ -As above X-rays interpreted by me (1pt min.). @ -Left hip and pelvis x-ray did not reveal acute fracture nor dislocation CT interpreted by me (1pt min.). @ -None done U/S interpreted by me (1pt. min.). @ -None done What testing was considered but not performed or refused? (CT, X-rays, U/S, labs)? Why? @ -None What meds were considered but not given or refused? Why? @ -None Did you discuss the management of the patient with other professionals (professionals i.e. JUAN Strauss, DISTRIBUTION OPERATION SUPERVISOR, lab, RT, psych nurse, manager social services, sustainable landscape architect, teacher, executive officer, correctional counselor/case manager)? Give summary @ -No Was smoking cessation discussed for >3mins.? @ -No Was critical care preformed (if so, how long)? @ -No Were there social determinants of health that impacted care today? How? (Homelessness, low income, unemployed, alcoholism, drug addiction, transportation, low edu. Level, literacy, decrease access to med. care, prison, rehab)? @ -No Was there de-escalation of care discussed even if they declined (Discuss DNR or withdrawal of care, Hospice)? DNR status @ -No What co-morbidities impacted this encounter? (DM, HTN, Smoking, COPD, CAD, Cancer, CVA, ARF, Chemo, Hep., AIDS, mental health diagnosis, sleep apnea, morbid obesity)? @ -None Was patient admitted / discharged? Hospital course, mention meds given and route, prescriptions, significant lab abnormalities, going to OR and other pertinent info. @ -Patient reevaluated. Patient and family updated. Patient is receptive to further pain medications prior to discharge. Undiagnosed new problem with uncertain prognosis? @ -No Drug Therapy requiring intensive monitoring for toxicity (Heparin, Nitro, Insulin, Cardizem)? @ -No Were any procedures done? @ -No Diagnosis/symptom? @ -Fall, hip contusion Acute, or Chronic, or Acute on Chronic? @ -Acute, acute Uncomplicated (without systemic symptoms) or Complicated (systemic symptoms)? @ -default Side effects of treatment? @ -No Exacerbation, Progression, or Severe Exacerbation? @ -No Poses a threat to life or bodily function? How? (Chest pain, USA, [place], pneumonia, PE, COPD, DKA, ARF, appy, cholecystitis, CVA, Diverticulitis, Homicidal, Suicida l, threat to staff... and all critical care pts) @ -No Disposition Clinical Impression: Fall, Contusion, hip Disposition: HOME SELF-CARE Condition: Stable Instructions (If sedation given, give patient instructions): Fall Prevention for Older Adults (ED), Hip Contusion (ED) Additional Instructions: Please do follow-up with primary care physician and your surgeon in the next day or 2 for recheck. Return for increased pain, swelling, worsening or change in symptoms or other concerns. Is patient prescribed a controlled substance at d/c from ED?: No Referrals: Tima Miller MD [Primary Care Provider] - 1-2 days Osito Arias DO [Doctor of Osteopathic Medicine] - 1-2 days Time of Disposition: 17:22
[2022-11-10 16:34] VITALS: RESP 18
--- NOTE | 2022-11-10 17:03 | XR ---
EXAMINATION TYPE: XR Hip LT and AP Pelvis DATE OF EXAM: 11/10/2022 4:55 PM INDICATION: Patient age:Female; 82 years old; Reason for study: fall; [facility]. COMPARISON: Left Hip X-ray 11/09/2022 TECHNIQUE: The Left hip was examined in the frontal and lateral projections and a AP pelvis. FINDINGS: Expected post-surgical changes from patient's left total hip arthoplasty. Hardware appears intact. No acute fracture or dislocation. Minimal soft tissue gas, expected in the immediate post-ope rative period. Severe right hip osteoarthritis. Lumbar spine fusion hardware. IMPRESSION: 1. No acute osseous pathology. 2. Expected post-surgical changes from patient's left hip arthroplasty without acute complication.
[2022-11-10] MEDS ORDERED: MORPHINE SULFATE 4 MG/ML SYRINGE IVP STA (17:23)
[2022-11-10] MEDS ORDERED: MORPHINE SULFATE 4 MG/ML SYRINGE IM STA (18:02)
[2022-11-10 18:22] VITALS: BP 150/77; PULSE 85; TEMP 97.9
== END 2022-11-10 18:32 | disposition home or self-care (01) ==
LOC: EC 16:14
DX: S70.02XA Contusion of left hip, initial encounter (principal); I10 Essential (primary) hypertension; J45.909 Unspecified asthma, uncomplicated; E78.5 Hyperlipidemia, unspecified; F32.A Depression, unspecified; F41.9 Anxiety disorder, unspecified; Z79.51 Long term (current) use of inhaled steroids; Z79.899 Other long term (current) drug therapy; Z88.1 Allergy status to other antibiotic agents; Z88.2 Allergy status to sulfonamides; W01.0XXA Fall on same level from slipping, tripping and stumbling without subsequent striking against object, initial encounter
CPT/HCPCS: 73502; 99284; 96372; J2270

== ENCOUNTER 2022-12-12 07:32 | Emergency (ER) | payer MEDICARE, BC ==
[2022-12-12] MEDS ORDERED: SODIUM CHLORIDE 0.9% 1,000 ML IV STA (07:56)
[2022-12-12] MEDS ORDERED: KETOROLAC 15 MG/ML 1 ML VIAL IVP STA (07:56)
--- NOTE | 2022-12-12 08:04 | ED ---
Back Pain HPI - General Chief Complaint: Back Pain/Injury Stated Complaint: R side pain Time Seen by Provider: 12/12/22 07:50 Source: patient, RN notes reviewed Limitations: no limitations - History of Present Illness Initial Comments: Patient is an 82-year-old female presenting to the emergency room with complaints of right flank pain ongoing for approximately 3 days. She reports that the pain started out as an intermittent stabbing like pain and has progressed to a constant pain. She reports that the last time that she had similar pain she had blockage in her kidney. She states that she took extra strength Tylenol with no relief in her symptoms. She denies any associated symptoms including any radiation into the abdomen, radiation into her lower extremity or pain in the left flank. She denies any chest pain, shortness of breath, nausea, vomiting, dysuria, urinary frequency, hematuria, fevers or chills. She has a past medical history significant for asthma, hypertension and hyperlipidemia. - Related Data Home Medications Medication Instructions Recorded Confirmed Budesonide [Pulmicort Flexhaler] 2 puff INHALATION RT-BID 02/05/15 11/09/22 Isosorbide Mononitrate ER [Imdur] 30 mg PO DAILY 02/05/15 11/09/22 Sertraline HCl [Zoloft] 200 mg PO HS 02/05/15 11/09/22 Verapamil HCl [Verapamil ER] 240 mg PO HS 02/05/15 11/09/22 Cetirizine HCl [Zyrtec] 10 mg PO DAILY 09/24/17 11/09/22 ALPRAZolam [Xanax] 0.5 mg PO DAILY PRN 11/01/21 11/09/22 Simvastatin [Zocor] 20 mg PO DAILY 11/01/21 11/09/22 Vit C/E/Zn/Coppr/Lutein/Zeaxan 1 tab PO BID 11/01/21 11/09/22 [Preservision Areds 2 Chew Tab] Previous Rx's Medication Instructions Recorded HYDROcodone/APAP 5-325MG [Levan 1 tab PO Q6HR PRN #28 tab 11/03/21 5-325] Aspirin [Adult Low Dose Aspirin EC] 81 mg PO BID #60 tab 11/10/22 Famotidine [Pepcid] 20 mg PO DAILY tab 11/10/22 HYDROcodone/APAP 7.5-325MG [Levan 1 each PO Q6HR PRN #28 tab 11/10/22 7.5] Sennosides/Docusate Sodium 2 each PO DAILY PRN #30 tablet 11/10/22 [Senna-S 8.6-50 mg Tablet] Ibuprofen [Motrin] 600 mg PO Q6HR PRN 7 Days #21 tab 12/12/22 Allergies Allergy/AdvReac Type Severity Reaction Status Date / Time azithromycin Allergy Anaphylaxis Verified 12/12/22 07:38 [From Zithromax Z-Bo] doxycycline Allergy stops Verified 12/12/22 07:38 breathing Sulfa (Sulfonamide Allergy Anaphylaxis Verified 12/12/22 07:38 Antibiotics) Review of Systems ROS Statement: Those systems with pertinent positive or pertinent negative responses have been documented in the HPI. ROS Other: All systems not noted in ROS Statement are negative. 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, L3-4-5 fused with metal Past Anesthesia/Blood Transfusion Reactions: No Reported Reaction Past Psychological History: Anxiety, Depression Smoking Status: Never smoker Past Alcohol Use History: Rare Past Drug Use History: None Reported - Past Family History Mother Family Medical History: Congestive Heart Failure (CHF) Sister(s) Family Medical History: Cancer Additional Family Medical History / Comment(s): pancreatic Son(s) Family Medical History: Cancer Additional Family Medical History / Comment(s): Leukemia Father Family Medical History: Renal Disease Additional Family Medical History / Comment(s): at 46. General Exam Limitations: no limitations General appearance: alert, in no apparent distress Head exam: Present: atraumatic, normocephalic, normal inspection Eye exam: Present: normal appearance, PERRL, EOMI. Absent: scleral icterus, conjunctival injection, periorbital swelling ENT exam: Present: normal exam, mucous membranes moist Neck exam: Present: normal inspection, full ROM Respiratory exam: Present: normal lung sounds bilaterally. Absent: respiratory distress, wheezes, rales, rhonchi, stridor Cardiovascular Exam: Present: regular rate, normal rhythm, normal heart sounds. Absent: systolic murmur, diastolic murmur, rubs, gallop, clicks GI/Abdominal exam: Present: soft, normal bowel sounds. Absent: distended, tenderness, guarding, rebound, rigid Extremities exam: Present: normal inspection, full ROM. Absent: pedal edema, joint swelling Back exam: Present: tenderness, CVA tenderness (R). Absent: full ROM (Limited by pain), CVA tenderness (L), muscle spasm, paraspinal tenderness, vertebral tenderness Neurological exam: Present: alert, oriented X3, CN II-XII intact Psychiatric exam: Present: normal affect, normal mood Skin exam: Present: warm, dry, intact, normal color. Absent: rash Course Vital Signs 12/12/22 07:36 Temperature 98.2 F Pulse Rate 78 Respiratory 18 Rate Blood Pressure 155/92 O2 Sat by Pulse 96 Oximetry Medical Decision Making - Medical Decision Making Was pt. sent in by a medical professional or institution (, PA, GRAIN LOADER, urgent care, hospital, or group home...) When possible be specific @ -No Did you speak to anyone other than the patient for history (EMS, parent, family, police, friend...)? What history was obtained from this source @ -No Did you review nursing and triage notes (agree or disagree)? Why? @ -I reviewed and agree with nursing and triage notes Were old charts reviewed (outside hosp., previous admission, EMS record, old EKG, old radiological studies, urgent care reports/EKG's, group home records)? Report findings @ -No old charts were reviewed Differential Diagnosis (chest pain, altered mental status, abdominal pain women, abdominal pain men, vaginal bleeding, weakness, fever, dyspnea, syncope, headache, dizziness, GI bleed, back pain, seizure, CVA, palpatations, mental health, musculoskeletal)? @ -Differential Back Pain: Strain, zoster, cauda equina syndrome, epidural abscess, vertebral osteomyelitis, discitis, fracture, subluxation, disc herniation, DJD, spinal stenosis, dissection, AAA, pancreatitis, peptic ulcer disease, pyelonephritis, kidney stone, this is not meant to be an all-inclusive list. EKG interpreted by me (3pts min.). @ -None done X-rays interpreted by me (1pt min.). @ -None done CT interpreted by me (1pt min.). @ -CT abdomen and pelvis large extrarenal pelvis to the right kidney without an y hydronephrosis dilated ureter. No free air or free fluid in the abdomen. No obstruction. U/S @ -Ultrasound of the kidney, bladder and ureters not interpreted by me, report per radiologist: Right kidney dilated ureter versus extrarenal pelvis right jet not visualized. What testing was considered but not performed or refused? (CT, X-rays, U/S, labs)? Why? @ -None What meds were considered but not given or refused? Why? @ -None Did you discuss the management of the patient with other professionals (professionals i.e. , PA, GRAIN LOADER, lab, RT, psych nurse, sr. social media & mobile manager, plate glass installer helper, teacher, driver license reviewing officer, case management director)? Give summary @ -No Was smoking cessation discussed for >3mins.? @ -No Was critical care preformed (if so, how long)? @ -No Were there social determinants of health that impacted care today? How? (Homelessness, low income, unemployed, alcoholism, drug addiction, transportation, low edu. Level, literacy, decrease access to med. care, nursing home, rehab)? @ -No Was there de-escalation of care discussed even if they declined (Discuss DNR or withdrawal of care, Hospice)? DNR status @ -No What co-morbidities impacted this encounter? (DM, HTN, Smoking, COPD, CAD, C ancer, CVA, ARF, Chemo, Hep., AIDS, mental health diagnosis, sleep apnea, morbid obesity)? @ -None Was patient admitted / discharged? Hospital course, mention meds given and route, prescriptions, significant lab abnormalities, going to OR and other pertinent info. @ -82-year-old female presents the emergency room with right flank pain which has intensified over the last 3 days and is now constant without stated symptoms. No relief with Tylenol. Pain worse with movement. Will start workup for back pain/flank pain with CBC, CMP, lactic acid, urine with reflex to culture, and ultrasound of the kidneys ureters and bladder. Will give 1 L fluid bolus and Toradol for pain. Pain improved with Toradol and fluid bolus. Laboratory studies demonstrated a normal CBC and no abnormalities on urinalysis. BUN slightly elevated on CMP at 18 with creatinine. AST elevated at 41 with normal ALTs, bilirubin and phosphate. Glucose elevated at 104. No other abnormalities on CMP. Right jet not visualized and right kidney on ultrasound showed dilated ureter versus extrarenal pelvis. Due to right flank pain will proceed with CT of the abdomen and pelvis with contrast. CT the abdomen and pelvis demonstrates large extrarenal pelvis right without any obstruction or ureter dilatation. No indication for any further workup at this time. Findings discussed with patient at length. Advised continuation of anti- inflammatory as needed for pain. Will give prescription for Motrin 600mg. Advised good hydration and gentle range of motion as tolerated. Encouraged follow-up with primary care provider. Will discharge home in stable condition on anti-inflammatory to treat right flank pain advising follow-up with primary care provider. Undiagnosed new problem with uncertain prognosis? @ -No Drug Therapy requiring intensive monitoring for toxicity (Heparin, Nitro, Insulin, Cardizem)? @ -No Were any procedures done? @ -No Diagnosis/symptom? @ -Right flank pain Acute, or Chronic, or Acute on Chronic? @ -Acute Uncomplicated (without systemic symptoms) or Complicated (systemic symptoms)? @ -Uncomplicated Side effects of treatment? @ -No Exacerbation, Progression, or Severe Exacerbation? @ -No Poses a threat to life or bodily function? How? (Chest pain, USA, [place], pneumonia, PE, COPD, DKA, ARF, appy, cholecystitis, CVA, Diverticulitis, Homicidal, Suicidal, threat to staff... and all critical care pts) @ -No Case discussed with Dr. Muro - Lab Data Result diagrams: 12/12/22 08:06 12/12/22 08:06 Lab Results 12/12/22 12/12/22 12/12/22 Range/Units 08:06 08:06 08:06 WBC 8.0 (3.8-10.6) k/uL RBC 4.90 (3.80-5.40) m/uL Hgb 13.8 (11.4-16.0) gm/dL Hct 42.1 (34.0-46.0) % MCV 85.9 (80.0-100.0) fL MCH 28.2 (25.0-35.0) pg MCHC 32.9 (31.0-37.0) g/dL RDW 13.6 (11.5-15.5) % Plt Count 277 (150-450) k/uL MPV 7.8 Neutrophils % 58 % Lymphocytes % 31 % Monocytes % 7 % Eosinophils % 2 % Basophils % 1 % Neutrophils # 4.7 (1.3-7.7) k/uL Lymphocytes # 2.5 (1.0-4.8) k/uL Monocytes # 0.5 (0-1.0) k/uL Eosinophils # 0.2 (0-0.7) k/uL Basophils # 0.1 (0-0.2) k/uL Sodium 140 (137-145) mmol/L Potassium 3.7 (3.5-5.1) mmol/L Chloride 104 (98-107) mmol/L Carbon Dioxide 25 (22-30) mmol/L Anion Gap 11 mmol/L BUN 18 H (7-17) mg/dL Creatinine 0.90 (0.52-1.04) mg/dL Est GFR (CKD-EPI)AfAm 70 (>60 ml/min/1.73 sqM) Est GFR (CKD-EPI)NonAf 61 (>60 ml/min/1.73 sqM) Glucose 104 H (74-99) mg/dL Plasma Lactic Acid Bro (0.7-2.0) mmol/L Calcium 9.4 (8.4-10.2) mg/dL Total Bilirubin 0.5 (0.2-1.3) mg/dL AST 41 H (14-36) U/L ALT 24 (4-34) U/L Alkaline Phosphatase 125 (38-126) U/L Total Protein 7.4 (6.3-8.2) g/dL Albumin 4.5 (3.5-5.0) g/dL Urine Color Light Yellow Urine Appearance Clear (Clear) Urine pH 7.0 (5.0-8.0) Ur Specific [place] 1.008 (1.001-1.035) Urine Protein Negative (Negative) Urine Glucose (UA) Negative (Negative) Urine Ketones Negative (Negative) Urine Blood Negative (Negative) Urine Nitrite Negative (Negative) Urine Bilirubin Negative (Negative) Urine Urobilinogen <2.0 (<2.0) mg/dL Ur Leukocyte Esterase Negative (Negative) 12/12/22 Range/Units 08:06 WBC (3.8-10.6) k/uL RBC (3.80-5.40) m/uL Hgb (11.4-16.0) gm/dL Hct (34.0-46.0) % MCV (80.0-100.0) fL MCH (25.0-35.0) pg MCHC (31.0-37.0) g/dL RDW (11.5-15.5) % Plt Count (150-450) k/uL MPV Neutrophils % % Lymphocytes % % Monocytes % % Eosinophils % % Basophils % % Neutrophils # (1.3-7.7) k/uL Lymphocytes # (1.0-4.8) k/uL Monocytes # (0-1.0) k/uL Eosinophils # (0-0.7) k/uL Basophils # (0-0.2) k/uL Sodium (137-145) mmol/L Potassium (3.5-5.1) mmol/L Chloride (98-107) mmol/L Carbon Dioxide (22-30) mmol/L Anion Gap mmol/L BUN (7-17) mg/dL Creatinine (0.52-1.04) mg/dL Est GFR (CKD-EPI)AfAm (>60 ml/min/1.73 sqM) Est GFR (CKD-EPI)NonAf (>60 ml/min/1.73 sqM) Glucose (74-99) mg/dL Plasma Lactic Acid Bro 1.1 (0.7-2.0) mmol/L Calcium (8.4-10.2) mg/dL Total Bilirubin (0.2-1.3) mg/dL AST (14-36) U/L ALT (4-34) U/L Alkaline Phosphatase (38-126) U/L Total Protein (6.3-8.2) g/dL Albumin (3.5-5.0) g/dL Urine Color Urine Appearance (Clear) Urine pH (5.0-8.0) Ur Specific [place] (1.001-1.035) Urine Protein (Negative) Urine Glucose (UA) (Negative) Urine Ketones (Negative) Urine Blood (Negative) Urine Nitrite (Negative) Urine Bilirubin (Negative) Urine Urobilinogen (<2.0) mg/dL Ur Leukocyte Esterase (Negative) - Radiology Data Radiology results: report reviewed, image reviewed Disposition Clinical Impression: Right flank pain Disposition: HOME SELF-CARE Condition: Stable Instructions (If sedation given, give patient instructions): Flank Pain (ED) Additional Instructions: Utilize ibuprofen for pain as needed; do not take other NSAIDs while taking ibuprofen. Stay well hydrated. Range of motion encouraged. Avoid heavy lifting and prolonged periods of bedrest. Please return to the Emergency Department if symptoms worsen or any other concerns. Prescriptions: Ibuprofen [Motrin] 600 mg PO Q6HR PRN 7 Days #21 tab PRN Reason: Pain Is patient prescribed a controlled substance at d/c from ED?: No Referrals: Tima Miller MD [Primary Care Provider] - 1-2 days Time of Disposition: 11:41
[2022-12-12 08:22] LABS: Basophils # (A) 0.1 k/uL (0-0.2); Basophils % (A) 1 %; Eosinophils # (A) 0.2 k/uL (0-0.7); Eosinophils % (A) 2 %; HCT 42.1 % (34.0-46.0); HGB 13.8 gm/dL (11.4-16.0); Lymphocytes # (A) 2.5 k/uL (1.0-4.8); Lymphocytes % (A) 31 %; MCH 28.2 pg (25.0-35.0); MCHC 32.9 g/dL (31.0-37.0); MCV 85.9 fL (80.0-100.0); Mean Platelet Volume 7.8; Monocytes # (A) 0.5 k/uL (0-1.0); Monocytes % (A) 7 %; Neutrophils # (A) 4.7 k/uL (1.3-7.7); Neutrophils % (A) 58 %; Platelet Count 277 k/uL (150-450); RDW 13.6 % (11.5-15.5)
[2022-12-12 08:42] LABS: ALT 24 U/L (4-34); AST 41 U/L (14-36); African American GFR (CKD) 70 (>60 ml/min/1.73 sqM); Albumin 4.5 g/dL (3.5-5.0); Alkaline Phosphatase 125 U/L (38-126); Anion Gap 11 mmol/L; Blood Urea Nitrogen 18 mg/dL (7-17); Calcium 9.4 mg/dL (8.4-10.2); Carbon Dioxide 25 mmol/L (22-30); Chloride 104 mmol/L (98-107); Glucose 104 mg/dL (74-99); Non-African American GFR(CKD) 61 (>60 ml/min/1.73 sqM); Potassium 3.7 mmol/L (3.5-5.1); Sodium 140 mmol/L (137-145); Total Bilirubin 0.5 mg/dL (0.2-1.3); Total Protein 7.4 g/dL (6.3-8.2)
[2022-12-12 09:25] LABS: Appearance,Urine Clear (Clear); Bilirubin,Urine Negative (Negative); Blood,Urine Negative (Negative); Color,Urine Light Yellow; Glucose,Urine (UA) Negative (Negative); Ketones,Urine Negative (Negative); Leukocyte Esterase,Urine Negative (Negative); Nitrite,Urine Negative (Negative); Protein,Urine Negative (Negative); Specific Gravity,Urine 1.008 (1.001-1.035); Urobilinogen,Urine <2.0 mg/dL (<2.0)
--- NOTE | 2022-12-12 09:34 | US ---
EXAMINATION TYPE: US kidneys/renal and bladder DATE OF EXAM: 12/12/2022 COMPARISON: NONE CLINICAL INDICATION: Female, 82 years old with history of right flank pain; rt flank pain x 3 days, w orse last night. rt ureteral calculus 20 years ago EXAM MEASUREMENTS: Right Kidney: 11.1x5.2x4.9 cm Left Kidney: 10.3x4.3x3.7cm cm Right Kidney: dilated ureter vs. extrarenal pelvis Left Kidney: wnl Bladder: wnl Bilateral Jets seen: lt jet seen. rt jet nt visualized after 5 minutes. Attempt made to look for di lated distal ureter but area was obscured by bowel gas, no calculus seen. There is no evidence for hydronephrosis at this point in time. No nephrolithiasis is seen. No celestine s are identified. The urinary bladder is anechoic. Bilateral ureteral jets are seen. IMPRESSION: No evidence for obstructive uropathy. Extrarenal pelvis on the right.
--- NOTE | 2022-12-12 11:12 | CT ---
EXAMINATION TYPE: CT abdomen pelvis w con DATE OF EXAM: 12/12/2022 COMPARISON: None INDICATION: Rt flank pain DLP: 989.5 mGycm, Automated exposure control for dose reduction was used. CONTRAST: 100 mL of Isovue 300. Study performed without Oral Contrast TECHNIQUE: Axial images were obtained from above the diaphragm to the pubic rami in the axial plane a t 5 mm thick sections. Reconstructed images are reviewed on the computer in the coronal plane. FINDINGS: Limited CT sections are obtained the lung bases. Emphysematous changes are present. Some pulmonary f ibrosis appears be within the periphery of the posterior lung bases. CT ABDOMEN: Liver: Normal Spleen: Normal Pancreas: Normal Adrenal glands: The adrenal glands are normal. Gallbladder: Surgically absent Kidneys: No masses are evident. No hydronephrosis is present. Extrarenal pelves are present bilateral ly. No hydroureter is evident. No cysts are present. Delayed images were obtained through the kidn eys, which remain unremarkable. Aorta: Vascular calcification is within the aorta. Inferior vena cava: Normal. CT PELVIS: Loops of bowel within the abdomen and pelvis are normal. Diverticular changes are within the sigmoid colon. No adjacent inflammatory changes to suggest acute diverticulitis. Some fluid may be within the cecum. Study is without oral contrast limiting bowel evaluation. Appendix: Not identified. No dilated tubular structure or inflammatory changes are evident. Urinary bladder: Normal. Genitourinary structures: Uterus and ovaries are not identified. Osseous structures: No suspicious lytic or sclerotic lesions. Beam hardening artifact from a left hip prosthesis is present. Prior lumbar surgery is evident. IMPRESSIONS: 1. No acute abnormality to account for right flank pain. 2. Diverticulosis without acute diverticulitis. 3. Emphysematous changes and pulmonary fibrosis at the visualized lung bases. 4. Nonvisualization of the appendix. Clinical management of any suspected appendicitis will be requir ed. No suspicious secondary changes to suggest appendicitis are radiographically apparent
[2022-12-12 12:04] VITALS: BP 160/83; PULSE 64; RESP 16; TEMP 97.9
== END 2022-12-12 12:04 | disposition home or self-care (01) ==
LOC: EC 07:32
DX: R10.9 Unspecified abdominal pain (principal); J84.10 Pulmonary fibrosis, unspecified; I10 Essential (primary) hypertension; J45.909 Unspecified asthma, uncomplicated; E78.5 Hyperlipidemia, unspecified; F41.9 Anxiety disorder, unspecified; F32.A Depression, unspecified; Z79.899 Other long term (current) drug therapy; Z88.2 Allergy status to sulfonamides; Z88.8 Allergy status to other drugs, medicaments and biological substances
CPT/HCPCS: 36415; 80053; 83605; 85025; 81003; 76770; 74177; 99284; 96374; 96361; J1885; Q9967

== ENCOUNTER 2023-04-26 10:56 | Emergency (ER) | payer MEDICARE, BC ==
[2023-04-26 11:14] VITALS: RESP 18; TEMP 98.3
[2023-04-26] MEDS ORDERED: NITROGLYCERIN OINT 1 INCH/GM PACKET TOPICAL STA (11:27)
[2023-04-26] MEDS ORDERED: ASPIRIN 81 MG PO STA (11:27)
--- NOTE | 2023-04-26 11:29 | ED ---
General Adult HPI - General Chief complaint: Chest Pain Stated complaint: chest pain Time Seen by Provider: 04/26/23 11:07 Source: patient, family, RN notes reviewed Mode of arrival: wheelchair Limitations: no limitations - History of Present Illness Initial comments: Patient is a pleasant 82-year-old female presenting to the emergency department with concerns with chest discomfort. Onset of symptoms was a half hour ago while riding in the car. Discomfort felt sharp without radiation. No nausea. No dyspnea. Patient did feel sweaty. Symptoms have improved and near resolved, rated 2/10 at this time. No history of similar symptoms previously. No calf Pain or swelling. - Related Data Home Medications Medication Instructions Recorded Confirmed Isosorbide Mononitrate ER [Imdur] 30 mg PO DAILY 02/05/15 04/26/23 Sertraline HCl [Zoloft] 200 mg PO HS 02/05/15 04/26/23 Cetirizine HCl [Zyrtec] 10 mg PO DAILY 09/24/17 04/26/23 ALPRAZolam [Xanax] 0.5 mg PO DAILY PRN 11/01/21 04/26/23 Simvastatin [Zocor] 20 mg PO DAILY 11/01/21 04/26/23 Vit C/E/Zn/Coppr/Lutein/Zeaxan 1 tab PO BID 11/01/21 04/26/23 [Preservision Areds 2 Chew Tab] Albuterol Inhaler [Ventolin Hfa 1 - 2 puff INHALATION RT-Q6H PRN 04/26/23 04/26/23 Inhaler] Ammonium Lactate Cream [Lac-Hydrin 1 applic TOPICAL BID PRN 04/26/23 04/26/23 12% Cream] Baclofen 5 - 10 mg PO BID PRN 04/26/23 04/26/23 Cholecalciferol [Vitamin D3 (25 25 mcg PO DAILY 04/26/23 04/26/23 Mcg = 1000 Iu)] Verapamil HCl [Verapamil ER] 240 mg PO HS 04/26/23 04/26/23 methylPREDNISolone Dose Pack See Taper PO DIRECTED 04/26/23 04/26/23 [Medrol Dose Pack] Previous Rx's Medication Instructions Recorded HYDROcodone/APAP 5-325MG [[place] 1 tab PO Q6HR PRN #28 tab 11/03/21 5-325] Allergies Allergy/AdvReac Type Severity Reaction Status Date / Time azithromycin Allergy Anaphylaxis Verified 04/26/23 11:38 [From Zithromax Z-Bo] doxycycline Allergy Anaphylaxis, Verified 04/26/23 11:38 stops breathing Sulfa (Sulfonamide Allergy Anaphylaxis Verified 04/26/23 11:38 Antibiotics) Review of Systems ROS Statement: Those systems with pertinent positive or pertinent negative responses have been documented in the HPI. ROS Other: All systems not noted in ROS Statement are negative. 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, L3-4-5 fused with metal Past Anesthesia/Blood Transfusion Reactions: No Reported Reaction Past Psychological History: Anxiety, Depression Smoking Status: Never smoker Past Alcohol Use History: Rare Past Drug Use History: None Reported - Past Family History Mother Family Medical History: Congestive Heart Failure (CHF) Sister(s) Family Medical History: Cancer Additional Family Medical History / Comment(s): pancreatic Son(s) Family Medical History: Cancer Additional Family Medical History / Comment(s): Leukemia Father Family Medical History: Renal Disease Additional Family Medical History / Comment(s): at 46. General Exam Limitations: no limitations General appearance: alert, in no apparent distress Head exam: Present: normocephalic Eye exam: Present: normal appearance Neck exam: Present: normal inspection Respiratory exam: Present: normal lung sounds bilaterally. Absent: chest wall tenderness Cardiovascular Exam: Present: regular rate, normal rhythm Expanded Peripheral pulses: 2+: Radial (R), Radial (L), Dorsalis Pedis (R), Dorsalis Pedis (L) GI/Abdominal exam: Present: soft. Absent: tenderness Extremities exam: Present: normal inspection. Absent: pedal edema, calf tenderness Neurological exam: Present: alert Psychiatric exam: Present: normal affect, normal mood Skin exam: Present: normal color Course Vital Signs 04/26/23 04/26/23 04/26/23 10:59 11:05 11:08 Temperature 98.3 F Pulse Rate 67 67 Pulse Rate [ 67 Dietary Internship ] Respiratory 18 24 Rate Blood Pressure 101/66 O2 Sat by Pulse 96 Oximetry 04/26/23 04/26/23 04/26/23 11:30 12:00 12:30 Temperature Pulse Rate 69 66 62 Pulse Rate [ Dietary Internship ] Respiratory 16 16 16 Rate Blood Pressure 138/86 134/83 134/89 O2 Sat by Pulse 96 95 96 Oximetry 04/26/23 04/26/23 04/26/23 13:00 13:30 14:00 Temperature Pulse Rate 66 63 64 Pulse Rate [ Dietary Internship ] Respiratory 14 16 18 Rate Blood Pressure 144/85 132/84 156/93 O2 Sat by Pulse 95 95 94 L Oximetry EKG Findings - EKG Results: EKG: interpreted by MAMTA (First-degree AV block. Incomplete right bundle-branch block.), sinus rhythm, normal axis, normal ST/T Medical Decision Making - Medical Decision Making Was pt. sent in by a medical professional or institution (, PA, AFFILIATE MARKETING MANAGER, urgent care, hospital, or fpc...) When possible be specific @ -[No] Did you speak to anyone other than the patient for history (EMS, parent, family, police, friend...)? What history was obtained from this source @ -[No] Did you review nursing and triage notes (agree or disagree)? Why? @ -[I reviewed and agree with nursing and triage notes] Were old charts reviewed (outside hosp., previous admission, EMS record, old EKG, old radiological studies, urgent care reports/EKG's, fpc records)? Report findings @ -[No old charts were reviewed] Differential Diagnosis (chest pain, altered mental status, abdominal pain women, abdominal pain men, vaginal bleeding, weakness, fever, dyspnea, syncope, headache, dizziness, GI bleed, back pain, seizure, CVA, palpatations, mental health, musculoskeletal)? @ -Differential Chest Pain: Stable Angina, Unstable Angina, STEMI, NSTEMI Aortic Dissection, Pneumothorax, Musculoskeletal, Esophageal Spasm GERD, Cholecystitis, Pancreatitis, Zoster, this is not meant to be an all-inclusive list. EKG interpreted by me (3pts min.). @ -[As above] X-rays interpreted by me (1pt min.). @ -Chest x-ray shows no acute process. CT interpreted by me (1pt min.). @ -Computed tomography scan without obvious pulmonary embolism. U/S interpreted by me (1pt. min.). @ -[None done] What testing was considered but not performed or refused? (CT, X-rays, U/S, labs)? Why? @ -[None] What meds were considered but not given or refused? Why? @ -[None] Did you discuss the management of the patient with other professionals (professionals i.e. , PA, AFFILIATE MARKETING MANAGER, lab, RT, psych nurse, health care social worker, powder press operator, te acher, neighborhood conservation officer, case operator)? Give summary @ -Case was discussed in detail with Dr. Miller who is familiar with this patient and has seen her recently. He would like patient to be discharged for follow-up. Was smoking cessation discussed for >3mins.? @ -[No] Was critical care preformed (if so, how long)? @ -[No] Were there social determinants of health that impacted care today? How? (Homelessness, low income, unemployed, alcoholism, drug addiction, transportation, low edu. Level, literacy, decrease access to med. care, correction, rehab)? @ -[No] Was there de-escalation of care discussed even if they declined (Discuss DNR or withdrawal of care, Hospice)? DNR status @ -[No] What co-morbidities impacted this encounter? (DM, HTN, Smoking, COPD, CAD, Cancer, CVA, ARF, Chemo, Hep., AIDS, mental health diagnosis, sleep apnea, morbid obesity)? @ -[None] Was patient admitted / discharged? Hospital course, mention meds given and route, prescriptions, significant lab abnormalities, going to OR and other pertinent info. @ -Patient reevaluated and resting comfortably in bed. Patient is symptom-free at this time. Patient is updated on results. Patient is made aware that there is delay and testing in all cardiac disease. Rule out at this point. Patient discussion had regarding admission. Patient requests discharge home. Case was discussed with Dr. Miller who is comfortable with this and will follow up with patient. Undiagnosed new problem with uncertain prognosis? @ -[No] Drug Therapy requiring intensive monitoring for toxicity (Heparin, Nitro, Insulin, Cardizem)? @ -[No] Were any procedures done? @ -[No] Diagnosis/symptom? @ -chest pain Acute, or Chronic, or Acute on Chronic? @ -Acute Uncomplicated (without systemic symptoms) or Complicated (systemic symptoms)? @ -[default] Side effects of treatment? @ -[No] Exacerbation, Progression, or Severe Exacerbation? @ -[No] Poses a threat to life or bodily function? How? (Chest pain, USA, IA, pneumonia, PE, COPD, DKA, ARF, appy, cholecystitis, CVA, Diverticulitis, Homicidal, Suicidal, threat to staff... and all critical care pts) @ -[No] - Lab Data Result diagrams: 04/26/23 11:33 04/26/23 11:33 Lab Results 04/26/23 04/26/23 04/26/23 Range/Units 11:33 11:33 11:33 WBC 14.2 H (3.8-10.6) k/uL RBC 5.50 H (3.80-5.40) m/uL Hgb 15.6 (11.4-16.0) gm/dL Hct 46.3 H (34.0-46.0) % MCV 84.2 (80.0-100.0) fL MCH 28.3 (25.0-35.0) pg MCHC 33.6 (31.0-37.0) g/dL RDW 13.9 (11.5-15.5) % Plt Count 352 (150-450) k/uL MPV 8.0 Neutrophils % 68 % Lymphocytes % 21 % Monocytes % 9 % Eosinophils % 1 % Basophils % 1 % Neutrophils # 9.6 H (1.3-7.7) k/uL Lymphocytes # 3.0 (1.0-4.8) k/uL Monocytes # 1.2 H (0-1.0) k/uL Eosinophils # 0.1 (0-0.7) k/uL Basophils # 0.1 (0-0.2) k/uL PT 10.8 (10.0-12.5) sec INR 1.0 (<1.2) APTT 23.2 (22.0-30.0) sec D-Dimer 1.10 H (<0.60) mg/L FEU Sodium 138 (137-145) mmol/L Potassium 3.3 L (3.5-5.1) mmol/L Chloride 98 (98-107) mmol/L Carbon Dioxide 26 (22-30) mmol/L Anion Gap 14 mmol/L BUN 28 H (7-17) mg/dL Creatinine 1.04 (0.52-1.04) mg/dL Est GFR (CKD-EPI)AfAm 59 (>60 ml/min/1.73 sqM) Est GFR (CKD-EPI)NonAf 51 (>60 ml/min/1.73 sqM) Glucose 117 H (74-99) mg/dL Calcium 10.0 (8.4-10.2) mg/dL Magnesium 2.2 (1.6-2.3) mg/dL Total Bilirubin 0.6 (0.2-1.3) mg/dL AST 35 (14-36) U/L ALT 39 H (4-34) U/L Alkaline Phosphatase 102 (38-126) U/L Troponin I (0.000-0.034) ng/mL Total Protein 7.7 (6.3-8.2) g/dL Albumin 4.7 (3.5-5.0) g/dL 04/26/23 Range/Units 11:33 WBC (3.8-10.6) k/uL RBC (3.80-5.40) m/uL Hgb (11.4-16.0) gm/dL Hct (34.0-46.0) % MCV (80.0-100.0) fL MCH (25.0-35.0) pg MCHC (31.0-37.0) g/dL RDW (11.5-15.5) % Plt Count (150-450) k/uL MPV Neutrophils % % Lymphocytes % % Monocytes % % Eosinophils % % Basophils % % Neutrophils # (1.3-7.7) k/uL Lymphocytes # (1.0-4.8) k/uL Monocytes # (0-1.0) k/uL Eosinophils # (0-0.7) k/uL Basophils # (0-0.2) k/uL PT (10.0-12.5) sec INR (<1.2) APTT (22.0-30.0) sec D-Dimer (<0.60) mg/L FEU Sodium (137-145) mmol/L Potassium (3.5-5.1) mmol/L Chloride (98-107) mmol/L Carbon Dioxide (22-30) mmol/L Anion Gap mmol/L BUN (7-17) mg/dL Creatinine (0.52-1.04) mg/dL Est GFR (CKD-EPI)AfAm (>60 ml/min/1.73 sqM) Est GFR (CKD-EPI)NonAf (>60 ml/min/1.73 sqM) Glucose (74-99) mg/dL Calcium (8.4-10.2) mg/dL Magnesium (1.6-2.3) mg/dL Total Bilirubin (0.2-1.3) mg/dL AST (14-36) U/L ALT (4-34) U/L Alkaline Phosphatase (38-126) U/L Troponin I <0.012 (0.000-0.034) ng/mL Total Protein (6.3-8.2) g/dL Albumin (3.5-5.0) g/dL Disposition Clinical Impression: Chest pain Disposition: HOME SELF-CARE Instructions (If sedation given, give patient instructions): Chest Pain (ED) Additional Instructions: Please do follow-up with Dr. Miller or Dr. Wolff the next day or 2 check. Return for chest pain, difficulty breathing, worsening or changing symptoms or any other concerns. Aspirin daily until follow-up with your doctor advised otherwise. Is patient prescribed a controlled substance at d/c from ED?: No Referrals: Tima Miller MD [Primary Care Provider] - 1-2 days Time of Disposition: 14:33
[2023-04-26 11:53] LABS: Basophils # (A) 0.1 k/uL (0-0.2); Basophils % (A) 1 %; Eosinophils # (A) 0.1 k/uL (0-0.7); Eosinophils % (A) 1 %; HCT 46.3 % (34.0-46.0); HGB 15.6 gm/dL (11.4-16.0); Lymphocytes % (A) 21 %; MCH 28.3 pg (25.0-35.0); MCHC 33.6 g/dL (31.0-37.0); MCV 84.2 fL (80.0-100.0); Monocytes # (A) 1.2 k/uL (0-1.0); Monocytes % (A) 9 %; Neutrophils # (A) 9.6 k/uL (1.3-7.7); Neutrophils % (A) 68 %; Platelet Count 352 k/uL (150-450); RDW 13.9 % (11.5-15.5); WBC 14.2 k/uL (3.8-10.6)
--- NOTE | 2023-04-26 11:54 | XR ---
EXAMINATION TYPE: XR chest 2V DATE OF EXAM: 04/26/2023 COMPARISON: 10/22/2018 TECHNIQUE: PA and lateral views submitted. HISTORY: Chest pain FINDINGS: The lungs are clear and there is no pneumothorax, pleural effusion, or focal pneumonia. Heart size normal and no overt failure. Osseous structures demonstrate hypertrophic and degenerative changes of the spine. Diffuse osteopenia of the AC joint arthropathy. Underlying COPD with chronic interstitial pulmonary fibrosis. IMPRESSION: 1. No acute process.
[2023-04-26 11:56] LABS: ALT 39 U/L (4-34); AST 35 U/L (14-36); African American GFR (CKD) 59 (>60 ml/min/1.73 sqM); Albumin 4.7 g/dL (3.5-5.0); Alkaline Phosphatase 102 U/L (38-126); Anion Gap 14 mmol/L; Blood Urea Nitrogen 28 mg/dL (7-17); Carbon Dioxide 26 mmol/L (22-30); Chloride 98 mmol/L (98-107); Glucose 117 mg/dL (74-99); Magnesium 2.2 mg/dL (1.6-2.3); Non-African American GFR(CKD) 51 (>60 ml/min/1.73 sqM); Potassium 3.3 mmol/L (3.5-5.1); Sodium 138 mmol/L (137-145); Total Bilirubin 0.6 mg/dL (0.2-1.3); Total Protein 7.7 g/dL (6.3-8.2)
[2023-04-26 11:57] LABS: Partial Thromboplastin Time 23.2 sec (22.0-30.0); Prothrombin Time 10.8 sec (10.0-12.5)
--- NOTE | 2023-04-26 12:51 | CT ---
EXAMINATION TYPE: CT angio chest DATE OF EXAM: 04/26/2023 COMPARISON: None HISTORY: Chest pain, cardiac hx, heart cath CT DLP: 275.4 mGycm CONTRAST: CT chest with contrast and 3D reconstruction with MIP imaging is performed with IV Contrast, patient injected with 80 mL of Isovue 370. Contrast-enhanced CT of the chest was performed through the course of the pulmonary arteries with lexis g and mediastinal window settings submitted. 3D reconstruction with MIP imaging was also performed. PULMONARY ARTERIES: The pulmonary arteries and their major tributaries are patent. I do not see kaylene dence for sizable filling defect to suggest pulmonary embolic process. LUNGS: There is scattered subpleural fibrosis seen throughout both lung webster. Hyperinflation compat ible with COPD. The lungs are clear and free of infiltrate. No evidence for atelectasis. No pulmona ry nodule or mass is detected. No pleural effusion. MEDIASTINUM: Thoracic aorta is of normal caliber. The heart is mildly enlarged. No evidence for med iastinal mass. No mediastinal lymph nodes greater than 1cm. HILAR STRUCTURES: No evidence for mass. No hilar lymph nodes greater than 1 cm. UPPER ABDOMEN: No significant abnormality is seen. IMPRESSION: 1. No evidence for Pulmonary embolism at this time.
[2023-04-26 14:58] VITALS: BP 136/117; PULSE 68
== END 2023-04-26 14:43 | disposition home or self-care (01) ==
LOC: EC 10:56
DX: I45.10 Unspecified right bundle-branch block (principal); E78.5 Hyperlipidemia, unspecified; I10 Essential (primary) hypertension; J45.909 Unspecified asthma, uncomplicated; F41.9 Anxiety disorder, unspecified; F32.A Depression, unspecified; Z79.899 Other long term (current) drug therapy; Z88.1 Allergy status to other antibiotic agents; Z88.2 Allergy status to sulfonamides; Z88.8 Allergy status to other drugs, medicaments and biological substances
CPT/HCPCS: 36415; 93005; 85379; 80053; 83735; 84484; 85025; 85610; 85730; 71046; 71275; 99285; Q9967

== ENCOUNTER → 2023-11-08 | Outpatient (CLI) | payer MEDICARE, BC ==
--- NOTE | 2023-11-08 09:39 | US ---
EXAMINATION TYPE: US renals and bladder DATE OF EXAM: 11/08/2023 COMPARISON: 12/12/2022 CLINICAL INDICATION: Female, 83 years old with history of I12.9 HYPERTENSIVE CHRONIC KIDNEY DISEASE; CKD EXAM MEASUREMENTS: Right Kidney: 11.0x4.4x4.9 cm Left Kidney: 10.9x3.6x4.2 cm Post Void Residual Volume: 341.8 mL Right Kidney: No hydronephrosis or masses seen Left Kidney: No hydronephrosis or masses seen Bladder: wnl Bilateral Jets seen: lt jet visualized Normal Post Void Residual: No There is no evidence for hydronephrosis at this point in time. No nephrolithiasis is seen. Cortical medullary differentiation is maintained. No masses are identified. The urinary bladder is anechoic. Left ureteral jet is only seen. Abnormal post void residual volume. exam limited by bowel gas and body habitus IMPRESSION: 1. No hydronephrosis or nephrolithiasis. 2. Abnormal postvoid residual urinary bladder volume. Correlate clinically.
== END | disposition home or self-care (01) ==
LOC: RADUSWWP 08:03
PROVIDERS: ATTEND Family Medicine
DX: I12.9 Hypertensive chronic kidney disease with stage 1 through stage 4 chronic kidney disease, or unspecified chronic kidney disease (principal); N18.9 Chronic kidney disease, unspecified; R39.198 Other difficulties with micturition
CPT/HCPCS: 76770

== ENCOUNTER 2024-01-16 16:59 | Emergency (ER) | payer MEDICARE, BC ==
--- NOTE | 2024-01-16 17:09 | ED ---
Back Pain HPI - General Chief Complaint: Back Pain/Injury Stated Complaint: back pain/spasms Time Seen by Provider: 01/16/24 17:09 Source: patient, RN notes reviewed Limitations: no limitations - History of Present Illness Initial Comments: 83-year-old female presents emergency department chief complaint of right thoracic back pain and spasms. Patient said the pain started approximately 2 days ago states that she was she was standing when it started. Patient states that the pain is intermittent and is described as a stabbing sensation that is sharp and lasts for a few seconds. Patient denies radiation of pain, anterior chest pain, shortness of breath, difficulty breathing, abdominal pain, nausea, vomiting, diarrhea, fevers or chills. Patient has taken low-dose Newport at home with some relief. She has had a few spinal fusion surgeries over thoracic spine and lumbar spine in the past. - Related Data Home Medications Medication Instructions Recorded Confirmed Isosorbide Mononitrate ER [Imdur] 30 mg PO DAILY 02/05/15 04/26/23 Sertraline HCl [Zoloft] 200 mg PO HS 02/05/15 04/26/23 Cetirizine HCl [Zyrtec] 10 mg PO DAILY 09/24/17 04/26/23 ALPRAZolam [Xanax] 0.5 mg PO DAILY PRN 11/01/21 04/26/23 Simvastatin [Zocor] 20 mg PO DAILY 11/01/21 04/26/23 Vit C/E/Zn/Coppr/Lutein/Zeaxan 1 tab PO BID 11/01/21 04/26/23 [Preservision Areds 2 Chew Tab] Albuterol Inhaler [Ventolin Hfa 1 - 2 puff INHALATION RT-Q6H PRN 04/26/23 04/26/23 Inhaler] Ammonium Lactate Cream [Lac-Hydrin 1 applic TOPICAL BID PRN 04/26/23 04/26/23 12% Cream] Baclofen 5 - 10 mg PO BID PRN 04/26/23 04/26/23 Cholecalciferol [Vitamin D3 (25 25 mcg PO DAILY 04/26/23 04/26/23 Mcg = 1000 Iu)] Verapamil HCl [Verapamil ER] 240 mg PO HS 04/26/23 04/26/23 methylPREDNISolone Dose Pack See Taper PO DIRECTED 04/26/23 04/26/23 [Medrol Dose Pack] Previous Rx's Medication Instructions Recorded HYDROcodone/APAP 5-325MG [Newport 1 tab PO Q6HR PRN #28 tab 11/03/21 5-325] Cyclobenzaprine [Flexeril] 5 mg PO TID PRN #15 tablet 01/16/24 Allergies Allergy/AdvReac Type Severity Reaction Status Date / Time azithromycin Allergy Anaphylaxis Verified 01/16/24 17:03 [From Zithromax Z-Bo] doxycycline Allergy Anaphylaxis, Verified 01/16/24 17:03 stops breathing Sulfa (Sulfonamide Allergy Anaphylaxis Verified 01/16/24 17:03 Antibiotics) Review of Systems ROS Statement: Those systems with pertinent positive or pertinent negative responses have been documented in the HPI. ROS Other: All systems not noted in ROS Statement are negative. 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, L3-4-5 fused with metal Past Anesthesia/Blood Transfusion Reactions: No Reported Reaction Past Psychological History: Anxiety, Depression Smoking Status: Never smoker Past Alcohol Use History: Rare Past Drug Use History: None Reported - Past Family History Mother Family Medical History: Congestive Heart Failure (CHF) Sister(s) Family Medical History: Cancer Additional Family Medical History / Comment(s): pancreatic Son(s) Family Medical History: Cancer Additional Family Medical History / Comment(s): Leukemia Father Family Medical History: Renal Disease Additional Family Medical History / Comment(s): at 46. General Exam Limitations: no limitations Course Vital Signs 01/16/24 17:01 Temperature 98.1 F Pulse Rate 80 Respiratory 20 Rate Blood Pressure 161/93 O2 Sat by Pulse 95 Oximetry Medical Decision Making - Medical Decision Making Was pt. sent in by a medical professional or institution (, PA, [employer], urgent care, hospital, or shelter...) When possible be specific @ -No Did you speak to anyone other than the patient for history (EMS, parent, family, police, friend...)? What history was obtained from this source @ -Spoke to the patient's at bedside states the patient has been having intermittent muscle spasms over the past few days that are scribed as a stabbing sensation. Did you review nursing and triage notes (agree or disagree)? Why? @ -I reviewed and agree with nursing and triage notes Were old charts reviewed (outside hosp., previous admission, EMS record, old EKG, old radiological studies, urgent care reports/EKG's, shelter records)? Report findings @ -No old charts were reviewed Differential Diagnosis (chest pain, altered mental status, abdominal pain women, abdominal pain men, vaginal bleeding, weakness, fever, dyspnea, syncope, headache, dizziness, GI bleed, back pain, seizure, CVA, palpatations, mental health, musculoskeletal)? @ -Differential Back Pain: Strain, zoster, cauda equina syndrome, epidural abscess, vertebral osteomyelitis, discitis, fracture, subluxation, disc herniation, DJD, spinal stenosis, dissection, AAA, pancreatitis, peptic ulcer disease, pyelonephritis, kidney stone, this is not meant to be an all-inclusive list. EKG interpreted by me (3pts min.). @ -None X-rays interpreted by me (1pt min.). @ -X-ray of the thoracic spine reveals no acute osseous abnormalities, side bending towards the left related to patient's positioning/muscle spasm.. Chest x-ray nonspecific abnormality, possible mild volume overload with cardiomegaly CT interpreted by me (1pt min.). @ -None done U/S interpreted by me (1pt. min.). @ -None done What testing was considered but not performed or refused? (CT, X-rays, U/S, labs)? Why? @ -None What meds were considered but not given or refused? Why? @ -Was offered pain medication but declined at this time. States that she has been medication at home and this pain is intermittent therefore does not normally take this medication Did you discuss the management of the patient with other professionals (professionals i.e. , PA, [employer], lab, RT, psych nurse, forensic social worker, proofer, teacher, electronic warfare officer, case preparer and liner)? Give summary @ -No Was smoking cessation discussed for >3mins.? @ -No Was critical care preformed (if so, how long)? @ -No Were there social determinants of health that impacted care today? How? (Homelessness, low income, unemployed, alcoholism, drug addiction, transportation, low edu. Level, literacy, decrease access to med. care, care home, rehab)? @ -No Was there de-escalation of care discussed even if they declined (Discuss DNR or withdrawal of care, Hospice)? DNR status @ -No What co-morbidities impacted this encounter? (DM, HTN, Smoking, COPD, CAD, Cancer, CVA, ARF, Chemo, Hep., AIDS, mental health diagnosis, sleep apnea, morbid obesity)? @ -None Was patient admitted / discharged? Hospital course, mention meds given and route, prescriptions, significant lab abnormalities, going to OR and other pertinent info. @ -Discharged. 83-year-old female with thoracic back pain. Patient's vitals are stable on arrival. Patient is not complaining of symptoms of shortness of breath, anterior chest pain, difficulty breathing, heart palpitations, abdominal pain nausea or vomiting. Physical examination reveals full range of motion of the thoracic spine and palpation does not elicit pain. However on examination when patient sat up in the bed she states that she felt the sensation that lasted for a brief moment. She was offered pain medication but declined this time. X-ray of thoracic spine negative for acute process. Patient is provided with a prescription for low-dose muscle relaxer instructed to take this only at night or 2 times per day strictly as needed and do not combine this medication with Newport as this may cause drowsiness. All questions answered at bedside and strict return parameters idania with the patient and she is verbalized understanding. Case discussed with Dr. Higgins. Undiagnosed new problem with uncertain prognosis? @ -No Drug Therapy requiring intensive monitoring for toxicity (Heparin, Nitro, Insulin, Cardizem)? @ -No Were any procedures done? @ -No Diagnosis/symptom? @ -thoracic muscle spasm Acute, or Chronic, or Acute on Chronic? @ -Acute Uncomplicated (without systemic symptoms) or Complicated (systemic symptoms)? @ -Uncomplicated Side effects of treatment? @ -No Exacerbation, Progression, or Severe Exacerbation? @ -No Poses a threat to life or bodily function? How? (Chest pain, [place], NM, pneumonia, PE, COPD, DKA, ARF, appy, cholecystitis, CVA, Diverticulitis, Homicidal, Suicidal, threat to staff... and all critical care pts) @ -No Disposition Clinical Impression: Muscle spasm Disposition: HOME SELF-CARE Condition: Good Instructions (If sedation given, give patient instructions): Muscle Spasm (ED) Additional Instructions: Return to the emergency department for any new or worsening symptoms. Take muscle relaxer only as needed at night or up to 2 times a day. Do not take this medication with opioid, such as Newport. Prescriptions: Cyclobenzaprine [Flexeril] 5 mg PO TID PRN #15 tablet PRN Reason: Muscle Spasm Is patient prescribed a controlled substance at d/c from ED?: No Referrals: Tima Miller MD [Primary Care Provider] - 1-2 days Time of Disposition: 18:17
--- NOTE | 2024-01-16 17:44 | XR ---
EXAMINATION TYPE: XR chest 2V DATE OF EXAM: 01/16/2024 COMPARISON: 04/26/2023 INDICATION: Thoracic back pain and muscle spasm TECHNIQUE: Frontal and lateral views of the chest are obtained. FINDINGS: The heart size is the prominent. The pulmonary vasculature is mildly prominent. There are some scattered increased lung markings. Correlate for mild volume overload. Thoracic spine appears normal. Vertebral alignment is preserved. Vertebral body heights appear preser arthur. IMPRESSION: 1. Suggestion of mild volume overload with cardiomegaly and prominent pulmonary vascular markings. Fo llow-up can be performed as clinically indicated. 2. Nonspecific abnormality, for back pain.
--- NOTE | 2024-01-16 17:51 | XR ---
EXAMINATION TYPE: XR thoracic spine 2V DATE OF EXAM: 01/16/2024 COMPARISON: None HISTORY: Right thoracic back pain TECHNIQUE: 3 views thoracic spine FINDINGS: There is a scoliosis with convexity to the right centered at approximately T8. There are 12 thoracic type vertebral bodies. Pedicles are intact. Disc heights appear preserved. Some degenerative loss of disc height appears to be at the cervical thoracic junction with postsurgical c hanges within the lower cervical spine. IMPRESSION: 1. No acute osseous abnormalities thoracic spine. 2. Side bending towards the left related to patient positioning or muscle spasm
[2024-01-16 19:03] VITALS: BP 144/86; PULSE 76; RESP 18; TEMP 98
== END 2024-01-16 19:03 | disposition home or self-care (01) ==
LOC: EC 16:59
CPT/HCPCS: 71046; 72070; 99283

== ENCOUNTER → 2024-02-23 | Outpatient (CLI) | payer MEDICARE, BC ==
--- NOTE | 2024-02-23 14:13 | MR ---
EXAMINATION TYPE: MR lumbar spine wo con DATE OF EXAM: 02/23/2024 1:55 PM CLINICAL INDICATION: Female, 83 years old with history of M54.50LOW BACK PAIN, UNSPECIFIED,M51.86,M43 .16, Lower back pain, radiates into left buttock, hx surgery. COMPARISON: Plain film TECHNIQUE: Multi planar, multi sequence imaging was performed utilizing: T1-weighted, T2-weighted, a nd turbo inversion recovery imaging of the lumbar spine. IV Contrast: cc . (None if empty) FINDINGS: Alignment: The lumbar vertebral bodies have preserved heights. Slight grade 1 anterolisthesis of L2 o n L3. Cord: The conus medullaris and the distal spinal cord appear unremarkable with regards to their signa l intensity and morphology. Bones/Discs: Postsurgical changes with fixation hardware at L4-L5. Severe disc space loss at L3-L4. D egeneration changes throughout the spine with osteophyte formation and facet joint arthropathy. Multi level disc desiccation is present. No abnormal inversion recovery signal to suggest bony edema. T12-L1: No evidence of significant spinal canal stenosis or neural foraminal stenosis. L1-L2: Disc bulge and facet joint arthropathy result in moderate to severe spinal canal and severe ri ght and moderate severe left neural foraminal stenosis. L2-L3: Disc bulge and facet joint arthropathy result in severe spinal canal and moderate bilateral ne ural foraminal stenosis. L3-L4: Disc bulge and facet joint arthropathy result in moderate to severe spinal canal and moderate to severe bilateral neural foraminal stenosis. L4-L5: Susceptibility artifact limits evaluation at this level. The spinal canal and neural foramen a ppear patent. L5-S1: Susceptibility artifact limits evaluation at this level. The spinal canal and neural foramen a ppear patent. No significant spinal canal or neural foraminal stenosis in the remainder of the visualized levels. Other findings: None. IMPRESSION: 1. L3-L4 with moderate to severe spinal canal stenosis with moderate to severe bilateral neural fora tracey stenosis. 2. L2-L3 severe spinal canal stenosis and moderate bilateral neural foraminal stenosis. 3. L1-L2 moderate to severe spinal canal stenosis and severe right and moderate severe left neural f oraminal stenosis. 4. Slight grade 1 anterolisthesis of L2 on L3. [facility], , 02/23/2024 2:11 PM
== END | disposition home or self-care (01) ==
LOC: RADMRIMAIN 13:03
PROVIDERS: ATTEND Orthopaedic Surgery
CPT/HCPCS: 72148

== ENCOUNTER → 2024-08-19 | Outpatient (CLI) | payer MEDICARE, BC ==
--- NOTE | 2024-08-19 15:25 | MR ---
EXAMINATION TYPE: MR cervical spine wo con DATE OF EXAM: 08/19/2024 1:38 PM COMPARISON: None. CLINICAL INDICATION: Female, 84 years old with history of M50.30, Headaches, left arm pain TECHNIQUE: Multiplanar, multisequence images of the cervical spine were acquired without contrast. FINDINGS: No craniocervical junction abnormality, predental space widening, or prevertebral soft tissue swellin g. Large arachnoid granulations are noted along the posterior calvarium. Suspect some underlying wedge-s haped peripheral infarcts in both cerebellar hemispheres. Patient is status post C3-C6 ACDF. There is severe degenerative disc disease below the fusion at C6-C7 with desiccated and narrowed disc space with endplate irregularity and discussed by complex formation. Additional ligamentum flavum thickening here contributing to mild overall spinal canal stenosis. Residual posterior osteophytic ridging at the fused C3-C4 level encroaches onto the ventral spinal ca nal abutting the ventral cord but without any significant spinal canal stenosis. There is straightening of the normal cervical lordosis. Trace grade 1 retrolisthesis below the fusion at C6-C7. Trace grade 1 anterolisthesis T1-T2 and T2-T3. Residual hyperostotic changes to the facets and uncovertebral joints. Changes may result in a moderate left neuroforaminal stenosis at C3-C4 and severe on both sides at C6 -C7. No discrete T2-weighted cord signal abnormality is identified. IMPRESSION: 1. Status post C3-C6 ACDF with straightened cervical lordosis along the fused levels. 2. Severe degenerative disc disease and facet/uncovertebral joint arthropathy below the fusion at C6- C7 along with a grade 1 retrolisthesis. Grade 1 anterolisthesis T1-T2 and T2-T3. 3. Changes result in a mild spinal canal stenosis at C6-C7 with severe bilateral neuroforaminal steno sis. 4. Hyperostotic changes contributing to moderate left neural foraminal stenosis at the fused C3-C4 le shahab. [facility], , 08/19/2024 3:23 PM
== END | disposition home or self-care (01) ==
LOC: RADMRIMAIN 13:05
PROVIDERS: ATTEND Orthopaedic Surgery
DX: M50.323 Other cervical disc degeneration at C6-C7 level (principal); M48.02 Spinal stenosis, cervical region; M99.71 Connective tissue and disc stenosis of intervertebral foramina of cervical region; M43.22 Fusion of spine, cervical region; M43.12 Spondylolisthesis, cervical region; M47.812 Spondylosis without myelopathy or radiculopathy, cervical region
CPT/HCPCS: 72141

== ENCOUNTER 2024-10-24 07:25 | Day surgery (SDC) | payer MEDICARE, BC ==
[2024-10-24 07:59] VITALS: TEMP 97.9
[2024-10-24] MEDS ORDERED: LACTATED RINGERS 1,000 ML IV SCH (08:00)
[2024-10-24] MEDS ORDERED: hydrALAZINE HCL 20 MG/ML 1 ML VIAL ONE (08:30)
[2024-10-24] MEDS ORDERED: IOPAMIDOL M300 15ML VIAL ONE (08:30)
[2024-10-24] MEDS ORDERED: DEXAMETHASONE SOD PHOSPHATE 10 MG/ML 1 ML VIAL ONE (08:30)
[2024-10-24] MEDS: IV FLUID CONTINUATION 1,000 ML IV ONE (09:05)
--- NOTE | 2024-10-24 09:08 | FL ---
EXAMINATION TYPE: FL guided pain mgmt statistic DATE OF EXAM: 10/24/2024 8:52 AM COMPARISON: Pre Operative Images if available both CT/MRI or plain film CLINICAL INDICATION: Female, 84 years old with history of ROSSANA; TECHNIQUE: FL guided pain mgmt statistic, multiple fluoroscopic images provided for procedure. DAP: 0.83897 mGym2 Gycm2 uGym2 cGycm2 or equivalent. FINDINGS: IMPRESSION: 1. Report was generated for administrative purposes only. 2. Please see the operative/procedural note for further details. [facility], , 10/24/2024 9:06 AM
--- NOTE | 2024-10-24 09:08 | P.PCN ---
Description of Procedure: PROCEDURE 1. Injection of radio contrast material into cervical epidural space, cervical epidurogram, interpretation of cervical epidurogram, Cervical epidural steroid injection under fluoroscopic guidance, C7-T1 (fluoroscopy images available in the radiology department ) 2. Cervical epidurogram. PREOPERATIVE DIAGNOSIS: 1- Cervical Degenerative Disc Diseases 2- Cervical radiculopathy., 3-cervical spondylosis with cervical Facet arthropathy without myelopathy.4-cervical spinal stenosis POSTOPERATIVE DIAGNOSIS: : 1- Cervical Degenerative Disc Diseases , 2- Cervical radiculopathy. 3-,cervical spondylosis with cervical Facet arthropathy without myelopathy. 4-cervical spinal stenosis ANESTHESIA: Local anesthetics infiltration. In the OR continuous pulse ox, EKG, blood pressure and verbal communication was maintained. EBL : None PROCEDURE INDICATION: The patient with neck pain and radiculitis unresponsive to conservative treatment consents for procedure. Discussed the procedure, alternatives and possible complications which may include increased pain, infection, bleeding, nerve damage, paralysis all of which could be permanent. Patient understands and all questions were answered. In the preprocedure area, patient complained of chronic headache in addition to her neck pain. On physical examination significant tenderness over the occipital nerve bilaterally. If headache persists for future may consider bilateral greater occipital nerve injection. PROCEDURE DESCRIPTION : After getting consent patient was taken to the OR , positioned in prone position and time out was completed. A pillow was placed under the patients chest to increase the cervical interlaminar space. The cervical area was prepped and draped in the usual sterile fashion. Using anterior-posterior fluoroscopy, interlaminar space was identified and the skin over this site was marked and then infiltrated with 1% lidocaine subcutaneously. Subsequently, a 20-gauge 3-1/2-inch Tuohy epidural needle was inserted and advanced toward the epidural space at C6-7 with the loss of resistance technique using a syringe filled with preservative-free normal saline and guided by AP and lateral fluoroscopy. While advancing the needle some clear fluid appeared at the needle hub so I took the needle out. Decided to go epidural space 1 level below at C7-T1 level. 20- gauge 3-1/2 inch Tuohy epidural needle was inserted with ulri-su-gaasanhige technique using a syringe filled with preservative-free normal saline. Negative CSF, negative blood, negative paresthesia. The correct needle position in the epidural space was verified with the injection of 2 mL of the water soluble contrast dye [id number]-[id number] and observing an excellent epidurogram with the epidural spread of the dye, after repeat negative aspiration 3 mL solution was injected which consists of 1 mL of preservative-free normal saline mixed with 2 mL of 20 mg dexamethasone and a washout of epidurogram was seen. Needle was withdrawn intact, skin was cleansed, and bandages were applied. Disposition: Patient tolerated the procedure well. No complication. Patient was informed that there is a possibility of headache postprocedure. Suggested her to drink lots of fluids specially caffeinated beverages and call pain clinic if there is a headache. Patient was placed in supine position and transferred to the recovery room area in stable condition and there was no evidence of upper or lower extremity motor or sensory deficit after the procedure patient was di scharged from recovery room after discharge criteria met and home discharge instructions was given by the staff and patient will follow with the pain clinic in 2-4 weeks
[2024-10-24 10:09] VITALS: BP 172/94; PULSE 71; RESP 18
== END 2024-10-24 10:28 | disposition home or self-care (01) ==
LOC: ORPAIN 07:25
PROVIDERS: ATTEND Pain Medicine Interventional Pain Medicine
DX: M50.13 Cervical disc disorder with radiculopathy, cervicothoracic region (principal); M47.22 Other spondylosis with radiculopathy, cervical region; M48.02 Spinal stenosis, cervical region; Z88.1 Allergy status to other antibiotic agents; Z88.2 Allergy status to sulfonamides
CPT/HCPCS: 62321; J0360; J1100; Q9967

== ENCOUNTER 2024-11-12 14:05 | Inpatient (IN) | payer MEDICARE, BC ==
[2024-11-12 14:55] LABS: Basophils # (A) 0.04 10*3/uL (0.00-0.10); Basophils % (A) 0.5 %; Eosinophils # (A) 0.16 10*3/uL (0.04-0.35); Eosinophils % (A) 2.1 %; HCT 42.6 % (37.2-46.3); HGB 14.1 g/dL (12.0-15.0); Lymphocytes # (A) 2.06 10*3/uL (0.90-5.00); Lymphocytes % (A) 27.3 %; MCH 28.9 pg (27.0-32.0); MCHC 33.1 g/dL (32.0-37.0); MCV 87.3 fL (80.0-97.0); Monocytes # (A) 1.10 10*3/uL (0.20-1.00); Monocytes % (A) 14.6 %; Neutrophils # (A) 4.16 10*3/uL (1.80-7.70); Neutrophils % (A) 55.1 %; Platelet Count 282 10*3/uL (140-440); RBC 4.88 10*6/uL (4.10-5.20); RDW 13.3 % (11.5-14.5); WBC 7.55 10*3/uL (4.50-10.00)
[2024-11-12 14:58] LABS: INR 1.1 (<1.2); Prothrombin Time 12.0 sec (10.0-12.5)
[2024-11-12 15:07] LABS: ALT 19 U/L (4-34); AST 35 U/L (14-36); African American GFR (CKD) 47 (>60 ml/min/1.73 sqM); Albumin 4.3 g/dL (3.5-5.0); Alkaline Phosphatase 84 U/L (38-126); Anion Gap 12 mmol/L; Blood Urea Nitrogen 14 mg/dL (7-17); Calcium 9.9 mg/dL (8.4-10.2); Carbon Dioxide 28 mmol/L (22-30); Chloride 99 mmol/L (98-107); Glucose 115 mg/dL (74-99); Non-African American GFR(CKD) 41 (>60 ml/min/1.73 sqM); Potassium 3.5 mmol/L (3.5-5.1); Sodium 139 mmol/L (137-145); Total Protein 6.6 g/dL (6.3-8.2)
--- NOTE | 2024-11-12 15:59 | CT ---
EXAMINATION TYPE: CT brain wo con DATE OF EXAM: 11/12/2024 COMPARISON: 09/23/2020 CLINICAL INDICATION: Female, 84 years old with history of dizzinss with numbness left side of face; P HH, dizziness with getting up from lying down. turn head left to right increase dizzy CT DLP: 1112.4 mGycm Automated exposure control for dose reduction was used. Findings: The ventricles, basal cisterns and sulci over the convexities are moderately enlarged consistent with moderate generalized atrophy. There is no mass effect or shift of midline structures. There is a remote lacunar infarct in the left external capsule. There is no acute intra or extra-axial hemorrhage. The posterior fossa including the brainstem, fourth ventricle and cerebellar pontine angles appear no rmal. Intraorbital contents appear normal and symmetric. Visualized paranasal sinuses and mastoid air cells are well aerated. The calvarium is intact. IMPRESSION: 1. No acute bleed or mass effect. 2. 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 3. Moderate generalized atrophy [facility], Workstation: [id number] 11/12/2024 3:57 PM
[2024-11-12] MEDS: SODIUM CHLORIDE 0.9% 1,000 ML IV STA (17:15)
[2024-11-12] MEDS: MECLIZINE 12.5 MG TAB PO STA (17:16)
--- NOTE | 2024-11-12 17:30 | ED ---
Dizziness HPI - General Chief Complaint: Dizziness Stated Complaint: Weakness Time Seen by Provider: 11/12/24 14:22 Source: patient, RN notes reviewed Mode of arrival: ambulatory Limitations: no limitations - History of Present Illness Initial Comments: This is an 84-year-old female with history including hypertension, hyperlipidemia presenting for dizziness x 1 day. Patient states she awoke this morning with constant dizziness that worsens with position change and turning of her head. Patient also mentions some tingling in her left face and weakness in her left arm that she attributes to a pinched nerve in her neck. Patient states she has had intermittent dizziness for the past 6 months but states that this is the first time it has been constant and the severe. Patient also endorses double vision in both eyes, seen four of everything, that also started today. Patient denies neck stiffness, unilateral paresthesia, hemiplegia, dysphagia, dysarthria. MD Complaint: dizziness, difficulty walking Onset/Timin -: days(s) Timing: sudden onset Description: sense of movement, "room spinning", off-balance, difficulty walking History of Same: Yes History of Trauma: No Severity: moderate Improves With: remaining still Worsens With: movement, position - Related Data Home Medications Medication Instructions Recorded Confirmed Isosorbide Mononitrate ER [Imdur] 30 mg PO DAILY 02/05/15 04/26/23 Sertraline HCl [Zoloft] 200 mg PO HS 02/05/15 04/26/23 Cetirizine HCl [Zyrtec] 10 mg PO DAILY 09/24/17 04/26/23 ALPRAZolam [Xanax] 0.5 mg PO DAILY PRN 11/01/21 04/26/23 Simvastatin [Zocor] 20 mg PO DAILY 11/01/21 04/26/23 Vit C/E/Zn/Coppr/Lutein/Zeaxan 1 tab PO BID 11/01/21 04/26/23 [Preservision Areds 2 Chew Tab] Albuterol Inhaler [Ventolin Hfa 1 - 2 puff INHALATION RT-Q6H PRN 04/26/23 04/26/23 Inhaler] Ammonium Lactate Cream [Lac-Hydrin 1 applic TOPICAL BID PRN 04/26/23 04/26/23 12% Cream] Baclofen 5 - 10 mg PO BID PRN 04/26/23 04/26/23 Cholecalciferol [Vitamin D3 (25 25 mcg PO DAILY 04/26/23 04/26/23 Mcg = 1000 Iu)] Verapamil HCl [Verapamil ER] 240 mg PO HS 04/26/23 04/26/23 Previous Rx's Medication Instructions Recorded HYDROcodone/APAP 5-325MG [[place] 1 tab PO Q6HR PRN #28 tab 11/03/21 5-325] Allergies Allergy/AdvReac Type Severity Reaction Status Date / Time azithromycin Allergy Anaphylaxis Verified 10/24/24 08:01 [From Zithromax Z-Bo] doxycycline Allergy Anaphylaxis, Verified 10/24/24 08:01 stops breathing Sulfa (Sulfonamide Allergy Anaphylaxis Verified 10/24/24 08:01 Antibiotics) Review of Systems ROS Statement: Those systems with pertinent positive or pertinent negative responses have been documented in the HPI. ROS Other: All systems not noted in ROS Statement are negative. 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 fused with cadaver bones, L3-4-5 fused with metal Past Anesthesia/Blood Transfusion Reactions: No Reported Reaction Past Psychological History: Anxiety, Depression Smoking Status: Never smoker Past Alcohol Use History: Rare Past Drug Use History: None Reported - Past Family History Mother Family Medical History: Congestive Heart Failure (CHF) Sister(s) Family Medical History: Cancer Additional Family Medical History / Comment(s): pancreatic Son(s) Family Medical History: Cancer Additional Family Medical History / Comment(s): Leukemia Father Family Medical History: Renal Disease Additional Family Medical History / Comment(s): at 46. General Exam Limitations: no limitations General appearance: alert, in no apparent distress Head exam: Present: atraumatic, normocephalic, normal inspection Eye exam: Present: normal appearance, PERRL. Absent: EOMI (Patient unable to abduct/adduct eyes bilaterally), scleral icterus, conjunctival injection, perio rbital swelling ENT exam: Present: normal exam, mucous membranes moist, TM's normal bilaterally Neck exam: Present: normal inspection. Absent: tenderness, meningismus, lymphadenopathy Respiratory exam: Present: normal lung sounds bilaterally. Absent: respiratory distress, wheezes, rales, rhonchi, stridor, accessory muscle use, decreased breath sounds, prolonged expiratory Cardiovascular Exam: Present: regular rate, normal rhythm, normal heart sounds. Absent: systolic murmur, diastolic murmur, rubs, gallop, clicks GI/Abdominal exam: Present: soft, normal bowel sounds. Absent: distended, tenderness, guarding, rebound, rigid Extremities exam: Present: normal inspection, full ROM, normal capillary refill. Absent: tenderness, pedal edema, joint swelling, calf tenderness Back exam: Present: normal inspection Neurological exam: Present: alert, oriented X3, other ([place] stroke, cerebellar tests and hints exams normal. No unilateral paresthesia, hemiplegia.). Absent: CN II-XII intact (Patient having difficulty abducting/abducting eyes bilaterally, noting diplopia) Psychiatric exam: Present: normal affect, normal mood Skin exam: Present: warm, dry, intact, normal color. Absent: rash Course Vital Signs 11/12/24 11/12/24 11/12/24 14:19 17:20 21:08 Temperature 97.9 F Pulse Rate 99 89 90 Respiratory 20 20 18 Rate Blood Pressure 103/69 146/80 161/72 O2 Sat by Pulse 95 96 95 Oximetry Medical Decision Making - Medical Decision Making Was pt. sent in by a medical professional or institution (, PA, HAND LACER, urgent care, hospital, or assisted...) When possible be specific @ -No Did you speak to anyone other than the patient for history (EMS, parent, family, police, friend...)? What history was obtained from this source @ -No Did you review nursing and triage notes (agree or disagree)? Why? @ -I reviewed and agree with nursing and triage notes Were old charts reviewed (outside hosp., previous admission, EMS record, old EKG, old radiological studies, urgent care reports/EKG's, assisted records)? Report findings @ -No old charts were reviewed Differential Diagnosis (chest pain, altered mental status, abdominal pain women, abdominal pain men, vaginal bleeding, weakness, fever, dyspnea, syncope, headache, dizziness, GI bleed, back pain, seizure, CVA, palpatations, mental health, musculoskeletal)? @ -Differential Dizziness: Benign paroxysmal positional Vertigo, Meniere's disease, otitis media, acoustic neuroma, vertebrobasilar insufficiency, cerebellar stroke, encephalitis, hypovolemic, arrhythmia, coronary artery syndrome, anemia, this is not meant to be an all-inclusive list EKG interpreted by me (3pts min.). @ -Sinus rhythm with first-degree AV block and solitary PAC. No ST deviation or T wave inversion. Ventricular rate 99 bpm, FRANNY 0202 ms, QRS 80 ms, QTc 426 ms. X-rays interpreted by me (1pt min.). @ -None done CT interpreted by me (1pt min.). @ -Brain CT shows no acute bleeding or mass effect remote lacunar infarct in left external capsule and generalized atrophy. Head/neck CTA shows no flow- limiting carotid artery stenosis or [place]. Mild fusiform prominence of the distal left vertebral artery is present. U/S interpreted by me (1pt. min.). @ -None done What testing was considered but not performed or refused? (CT, X-rays, U/S, labs)? Why? @ -None What meds were considered but not given or refused? Why? @ -None Did you discuss the management of the patient with other professionals (professionals i.e. , PA, HAND LACER, lab, RT, psych nurse, social sciences instructor, fruit washer, teacher, personnel training officer, therapeutic case manager)? Give summary @ -Spoke to Dr. Miller regarding patient admission. Was smoking cessation discussed for >3mins.? @ -No Was critical care preformed (if so, how long)? @ -No Were there social determinants of health that impacted care today? How? (Homelessness, low income, unemployed, alcoholism, drug addiction, transportation, low edu. Level, literacy, decrease access to med. care, skilled nursing, rehab)? @ -No Was there de-escalation of care discussed even if they declined (Discuss DNR or withdrawal of care, Hospice)? DNR status @ -No What co-morbidities impacted this encounter? (DM, HTN, Smoking, COPD, CAD, Cancer, CVA, ARF, Chemo, Hep., AIDS, mental health diagnosis, sleep apnea, morbid obesity)? @ -None Was patient admitted / discharged? Hospital course, mention meds given and route, prescriptions, significant lab abnormalities, going to OR and other pertinent info. @ -Patient initially provided IV normal saline and and p.o. meclizine. Lab work notable for minimally elevated creatinine 1.24 with GFR 41. Troponin WNL and contaminated UA. Brain CT shows no acute bleeding or mass effect remote lacunar infarct in left external capsule and generalized atrophy. Head/neck CTA shows no flow-limiting carotid artery stenosis or [place]. Mild fusiform prominence of the distal left vertebral artery is present. Patient denies significant improvement with IV fluid and meclizine. Due to constant dizziness and sudden onset diplopia, patient admitted to observation with consult to neurology. Spoke to Dr. Miller regarding patient admission. Discussed patient with Dr. Higgins. Undiagnosed new problem with uncertain prognosis? @ -Diplopia, dizziness Drug Therapy requiring intensive monitoring for toxicity (Heparin, Nitro, Insulin, Cardizem)? @ -No Were any procedures done? @ -No Diagnosis/symptom? @ -Diplopia, dizziness/vertigo Acute, or Chronic, or Acute on Chronic? @ -Acute Uncomplicated (without systemic symptoms) or Complicated (systemic symptoms)? @ -Complicated Side effects of treatment? @ -No Exacerbation, Progression, or Severe Exacerbation? @ -Progression Poses a threat to life or bodily function? How? (Chest pain, USA, LA, pneumonia, PE, COPD, DKA, ARF, appy, cholecystitis, CVA, Diverticulitis, Homicidal, Suicidal, threat to staff... and all critical care pts) @ -No - Lab Data Result diagrams: 11/12/24 14:45 11/12/24 14:45 Lab Results 11/12/24 11/12/24 11/12/24 Range/Units 14:45 14:45 14:45 WBC 7.55 (4.50-10.00) 10*3/uL RBC 4.88 (4.10-5.20) 10*6/uL Hgb 14.1 (12.0-15.0) g/dL Hct 42.6 (37.2-46.3) % MCV 87.3 (80.0-97.0) fL MCH 28.9 (27.0-32.0) pg MCHC 33.1 (32.0-37.0) g/dL Plt Count 282 (140-440) 10*3/uL MPV 10.0 (9.5-12.2) fL Immature Gran % (Auto) 0.4 % Neutrophils % 55.1 % Lymphocytes % 27.3 % Monocytes % 14.6 % Eosinophils % 2.1 % Basophils % 0.5 % Immature Gran # 0.03 (0.00-0.04) 10*3/uL Neutrophils # 4.16 (1.80-7.70) 10*3/uL Lymphocytes # 2.06 (0.90-5.00) 10*3/uL Monocytes # 1.10 H (0.20-1.00) 10*3/uL Eosinophils # 0.16 (0.04-0.35) 10*3/uL Basophils # 0.04 (0.00-0.10) 10*3/uL PT (10.0-12.5) sec INR (<1.2) Sodium 139 (137-145) mmol/L Potassium 3.5 (3.5-5.1) mmol/L Chloride 99 (98-107) mmol/L Carbon Dioxide 28 (22-30) mmol/L Anion Gap 12 mmol/L BUN 14 (7-17) mg/dL Creatinine 1.24 H (0.52-1.04) mg/dL Est GFR (CKD-EPI)AfAm 47 (>60 ml/min/1.73 sqM) Est GFR (CKD-EPI)NonAf 41 (>60 ml/min/1.73 sqM) Glucose 115 H (74-99) mg/dL Calcium 9.9 (8.4-10.2) mg/dL Total Bilirubin 0.7 (0.2-1.3) mg/dL AST 35 (14-36) U/L ALT 19 (4-34) U/L Alkaline Phosphatase 84 (38-126) U/L Troponin I 0.015 (0.000-0.034) ng/mL Total Protein 6.6 (6.3-8.2) g/dL Albumin 4.3 (3.5-5.0) g/dL Urine Color Urine Appearance (Clear) Urine pH (5.0-8.0) Ur Specific [place] (1.001-1.035) Urine Protein (Negative) Urine Glucose (UA) (Negative) Urine Ketones (Negative) Urine Blood (Negative) Urine Nitrite (Negative) Urine Bilirubin (Negative) Urine Urobilinogen (<2.0) mg/dL Ur Leukocyte Esterase (Negative) Urine RBC (0-5) /hpf Urine WBC (0-5) /hpf Ur Squamous Epith Cells (0-4) /hpf Urine Bacteria (None) /hpf Hyaline Casts (0-2) /lpf Urine Mucus (None) /hpf 11/12/24 11/12/24 Range/Units 14:45 18:42 WBC (4.50-10.00) 10*3/uL RBC (4.10-5.20) 10*6/uL Hgb (12.0-15.0) g/dL Hct (37.2-46.3) % MCV (80.0-97.0) fL MCH (27.0-32.0) pg MCHC (32.0-37.0) g/dL Plt Count (140-440) 10*3/uL MPV (9.5-12.2) fL Immature Gran % (Auto) % Neutrophils % % Lymphocytes % % Monocytes % % Eosinophils % % Basophils % % Immature Gran # (0.00-0.04) 10*3/uL Neutrophils # (1.80-7.70) 10*3/uL Lymphocytes # (0.90-5.00) 10*3/uL Monocytes # (0.20-1.00) 10*3/uL Eosinophils # (0.04-0.35) 10*3/uL Basophils # (0.00-0.10) 10*3/uL PT 12.0 (10.0-12.5) sec INR 1.1 (<1.2) Sodium (137-145) mmol/L Potassium (3.5-5.1) mmol/L Chloride (98-107) mmol/L Carbon Dioxide (22-30) mmol/L Anion Gap mmol/L BUN (7-17) mg/dL Creatinine (0.52-1.04) mg/dL Est GFR (CKD-EPI)AfAm (>60 ml/min/1.73 sqM) Est GFR (CKD-EPI)NonAf (>60 ml/min/1.73 sqM) Glucose (74-99) mg/dL Calcium (8.4-10.2) mg/dL Total Bilirubin (0.2-1.3) mg/dL AST (14-36) U/L ALT (4-34) U/L Alkaline Phosphatase (38-126) U/L Troponin I (0.000-0.034) ng/mL Total Protein (6.3-8.2) g/dL Albumin (3.5-5.0) g/dL Urine Color Colorless Urine Appearance Clear (Clear) Urine pH 8.0 (5.0-8.0) Ur Specific [place] 1.028 (1.001-1.035) Urine Protein Negative (Negative) Urine Glucose (UA) Negative (Negative) Urine Ketones Negative (Negative) Urine Blood Negative (Negative) Urine Nitrite Negative (Negative) Urine Bilirubin Negative (Negative) Urine Urobilinogen <2.0 (<2.0) mg/dL Ur Leukocyte Esterase Small H (Negative) Urine RBC 1 (0-5) /hpf Urine WBC 8 H (0-5) /hpf Ur Squamous Epith Cells 7 H (0-4) /hpf Urine Bacteria Rare H (None) /hpf Hyaline Casts 8 H (0-2) /lpf Urine Mucus Rare H (None) /hpf Disposition Clinical Impression: Dizziness, Diplopia Disposition: ADMITTED IP TO THIS [facility] Condition: Fair Time of Disposition: 18:55 Decision Date: 11/12/24 Decision Time: 18:55
--- NOTE | 2024-11-12 18:38 | CT ---
EXAMINATION TYPE: CT angio head neck DATE OF EXAM: 11/12/2024 6:11 PM COMPARISON: None. CLINICAL INDICATION: Female, 84 years old with history of blurry vision, blurry vision TECHNIQUE: CTA scan is performed with axial images are obtained, coronal and sagittal reformatted peggy ges are reviewed. MIP images created on a separate workstation and submitted for review. 3-D reconstr ucted images are created on an independent workstation and reviewed. Source images are reviewed. JOSE CET criteria was used in interpretation of this exam? Contrast used:65ml mL of Isovue 370 with IV Contrast, (none if empty) Oral contrast used: (none if empty) CT DLP: 493.8 mGycm, Automated exposure control for dose reduction was used. FINDINGS: Carotid/Vascular Structures: There is a 3 vessel arch. Common carotid arteries bifurcate into internal and external carotid arteries without significant angelique w limiting stenosis. There is some mild calcification without stenosis at the left carotid bifurcatio n. Vertebral arteries are codominant. Internal carotid arteries and vertebral arteries are patent to the skull base. [place]: There is mild fusiform prominence of the distal left vertebral artery versus compli cated by calcification along this region. Right vertebral artery and the basilar artery appear normal . Posterior cerebral vasculature appears normal The anterior communicating artery is patent. The right posterior communicating artery is patent. The left posterior communicating artery is patent. IMPRESSION: 1. No flow-limiting stenosis bilateral carotid bifurcations. 2. Some mild fusiform prominence of the distal left vertebral artery versus calcification is present. 3. [place] otherwise appears within normal limits. [facility], , 11/12/2024 6:36 PM
[2024-11-12 19:02] LABS: Bacteria,Urine Rare /hpf; Bilirubin,Urine Negative (Negative); Blood,Urine Negative (Negative); Color,Urine Colorless; Glucose,Urine (UA) Negative (Negative); Hyaline Casts,Urine 8 /lpf (0-2); Ketones,Urine Negative (Negative); Leukocyte Esterase,Urine Small (Negative); Mucus,Urine Rare /hpf; Nitrite,Urine Negative (Negative); PH, Urine 8.0 (5.0-8.0); Protein,Urine Negative (Negative); RBC,Urine 1 /hpf (0-5); Specific Gravity,Urine 1.028 (1.001-1.035); Squamous Epithelial Cell,Urine 7 /hpf (0-4); Urobilinogen,Urine <2.0 mg/dL (<2.0); WBC,Urine 8 /hpf (0-5)
[2024-11-12] MEDS ORDERED: NALOXONE 0.4 MG/ML 1 ML VIAL IV PRN (20:29)
[2024-11-12] MEDS ORDERED: MORPHINE SULFATE 4 MG/ML SYRINGE IV PRN (20:29)
[2024-11-12] MEDS ORDERED: ONDANSETRON 4 MG/2 ML VIAL IVP PRN (20:29)
[2024-11-12] MEDS ORDERED: ACETAMINOPHEN TAB 325 MG TAB PO PRN (20:29)
[2024-11-12] MEDS: SERTRALINE 100 MG TAB PO SCH (21:07)
[2024-11-12] MEDS: VERAPAMIL SR 240 MG TABLET.ER PO SCH (22:51)
[2024-11-13] MEDS: SODIUM CHLORIDE 0.9% 1,000 ML IV SCH (00:19)
[2024-11-13] MEDS: ALPRAZolam 0.5 MG TAB PO PRN (03:05)
--- NOTE | 2024-11-13 09:34 | P.HPIM ---
History of Present Illness H&P Date: 11/13/24 This is an 84-year-old female with past medical history of dizziness, left arm weakness, tinnitus bilateral ears ,cervical degenerative disc disease, radiculopathy, cervical spinal stenosis, CAD, arrhythmia, hypertension, hyperlipidemia, depression, and multiple other medical issues presented to the ER with progressive dizziness all day long accompanied by bilateral diplopia with reading or watching TV for an extensive amount of time. Resolves with closing eyes. denies nausea vomiting or abdominal pain. Denies any syncope, motor strength loss, slurred speech or facial droop. reports normally her dizziness is only with standing or leaning over for years. 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 Duffy September 2024 for blurred vision, reporting it was a negative exam with no new medications recommended. Recently underwent cervical epidurogram, cervical epidural steroid injection at [facility] on 10/24/2024 with preoperative diagnosis reporting cervical degenerative disc disease, cervical radiculopathy, cervical spondylosis with cervical facet arthropathy without myelopathy and cervical spinal stenosis. EKG reported sinus rhythm with occasional supraventricular Premature complexes. Brain CT reported no acute bleed or mass effect, remote lacunar infarct in the left external capsule, moderate generalized atrophy. CT angio head neck reported no flow- limiting stenosis bilateral carotid bifurcations, some mild fusiform prominence of the distal left vertebral artery versus calcification present, [place] otherwise appears within normal limits. Afebrile, normal WBC. Reports dizziness has improved after taking meclizine. Review of Systems ROS Statement: Those systems with pertinent positive or pertinent negative responses have been documented in the HPI. ROS Other: All systems not noted in ROS Statement are negative. 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 fused with cadaver bones, L3-4-5 fused with metal Past Anesthesia/Blood Transfusion Reactions: No Reported Reaction Past Psychological History: Anxiety, Depression Smoking Status: Never smoker Past Alcohol Use History: Rare Past Drug Use History: None Reported - Past Family History Mother Family Medical History: Congestive Heart Failure (CHF) Sister(s) Family Medical History: Cancer Additional Family Medical History / Comment(s): pancreatic Son(s) Family Medical History: Cancer Additional Family Medical History / Comment(s): Leukemia Father Family Medical History: Renal Disease Additional Family Medical History / Comment(s): at 46. Medications and Allergies Home Medications Medication Instructions Recorded Confirmed Type Isosorbide Mononitrate ER [Imdur] 30 mg PO DAILY 02/05/15 11/13/24 History Sertraline HCl [Zoloft] 200 mg PO HS 02/05/15 11/13/24 History ALPRAZolam [Xanax] 0.5 mg PO BID PRN 11/01/21 11/13/24 History Simvastatin [Zocor] 20 mg PO DAILY 11/01/21 11/13/24 History Vit C/E/Zn/Coppr/Lutein/Zeaxan 1 tab PO BID 11/01/21 11/13/24 History [Preservision Areds 2 Chew Tab] HYDROcodone/APAP 5-325MG [[place] 1 tab PO Q6HR PRN #28 tab 11/03/21 11/13/24 Rx 5-325] Baclofen 5 mg PO HS 04/26/23 11/13/24 History Verapamil HCl [Verapamil ER] 240 mg PO HS 04/26/23 11/13/24 History Allergies Allergy/AdvReac Type Severity Reaction Status Date / Time azithromycin Allergy Anaphylaxis Verified 11/13/24 08:59 [From Zithromax Z-Bo] doxycycline Allergy Anaphylaxis, Verified 11/13/24 08:59 stops breathing Sulfa (Sulfonamide Allergy Anaphylaxis Verified 11/13/24 08:59 Antibiotics) Physical Exam Vitals: Vital Signs Temp Pulse Pulse Resp BP BP Pulse Ox 11/13/24 02:00 97.9 F 81 17 153/73 97 11/12/24 21:08 90 18 161/72 95 11/12/24 17:20 89 20 146/80 96 11/12/24 14:19 97.9 F 99 20 103/69 95 Intake and Output 11/12/24 11/13/24 11/13/24 22:59 06:59 14:59 Other: # Voids 2 # Bowel Movements 1 PHYSICAL EXAM: VITAL SIGNS: [Reviewed] GENERAL: Pleasant,elderly, obese female ,alert and oriented x 3, sitting up, no acute distress, conversing fluently without aphasia or dysarthria. HEENT: Conjunctivae normal. eyes normal. No nystagmus, mmm. NECK: Supple, no JVD. No thyroid enlargement. No LNs CARDIOVASCULAR: S1, S2 regular. no murmur RESPIRATION: Unlabored, equal air entry, essentially clear to auscultation with bilateral bases diminished. ABDOMEN: Soft, nontender . No guarding. no masses palpable. No ascites, No hepatosplenomegaly.Bowel sounds heard. LEGS: Minimal edema, no calf tenderness, peripheral pulses intact. NERVOUS SYSTEM: Cranial N 2-12 grossly normal. No focal deficits. Strength and sensation grossly intact. Skin: Warm and dry, no rash Results CBC & Chem 7: 11/12/24 14:45 11/12/24 14:45 Labs: Abnormal Lab Results - Last 24 Hours (Table) 11/12/24 11/12/24 11/12/24 Range/Units 14:45 14:45 18:42 Monocytes # 1.10 H (0.20-1.00) 10*3/uL Creatinine 1.24 H (0.52-1.04) mg/dL Glucose 115 H (74-99) mg/dL Ur Leukocyte Esterase Small H (Negative) Urine WBC 8 H (0-5) /hpf Ur Squamous Epith Cells 7 H (0-4) /hpf Urine Bacteria Rare H (None) /hpf Hyaline Casts 8 H (0-2) /lpf Urine Mucus Rare H (None) /hpf Assessment and Plan Assessment: Acute on chronic dizziness with bilateral diplopia, vertigo -improved with meclizine, workup in progress. 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 Asthma, history of CAD Hypertension Hyperlipidemia Arrhythmia Depression Anxiety, panic attacks History of vasovagal syncope Obesity, BMI 30 Plan: Continue on current medication regimen ,monitoring and symptomatic treatment. Orthostatic vital signs every shift. Florinef added to med regimen for orthostatic hypotension. Telemetry monitoring. Solu-Medrol 125 mg IV push x 1. neurology following, brain MRI pending. Maintain on meclizine. complains of nonproductive cough, congestion, chest x-ray ordered. Hemoglobin A1c ordered. PT/OT/case management for potential subacute rehab at discharge. Patient's significant other expressing difficulty caring for patient currently. The impression and plan of care has been dictated as directed. : I performed a history and examination of this patient, discussed the same with the dictator. I agree with the dictator's note ,documented as a scribe. Any additional findings or plans will be noted.
--- NOTE | 2024-11-13 10:28 | MR ---
INDICATION: Patient age:Female; 84 years old; Reason for study: Diplopia, constant dizziness; PHH. COMPARISON: CT brain 11/12/2024, 09/13/2020, CTA head and neck 11/12/2024, 09/13/2020. TECHNIQUE: Multi planar, multi sequence imaging was performed through the brain without the administr ation of intravenous contrast. FINDINGS: The sewell-white junctions and basal cisterns appear unremarkable. Age-appropriate mild to moderate cer ebral volume loss. Mild prominence of the ventricular system which is concurrent with degree of cereb ral atrophy. Diffusion-weighted imaging shows no evidence of restricted diffusion to suggest acute/wei bacute infarct. Intracranial arterial flow voids are maintained. Empty sellar morphology. Left basal ganglia prominent perivascular space. Patchy areas of high T2/FLAIR signal intensity are seen within the periventricular and subcortical white matter. The susceptibility weighted images demonstrate appr oximately 20 scattered foci of blooming artifact consistent with prior microhemorrhage. The bone marrow signal is within normal limits. Occipital venous lakes identified. The paranasal sinu ses are unremarkable. Bilateral aphakia. IMPRESSION: 1. No evidence of intracranial mass or acute/subacute infarct. 2. Nonspecific white matter changes, likely related to small vessel ischemic disease. 3. Scattered foci of prior microhemorrhage identified. This can be seen with a variety of cerebral sm all vessel diseases and other vascular causes. [facility], , 11/13/2024 10:25 AM
--- NOTE | 2024-11-13 11:25 | P.CNNES ---
History of Present Illness Consult date: 11/13/24 Requesting physician: Rakesh Michael Reason for Consult: Bilateral diplopia, constant dizziness History of Present Illness: Patient is a 84-year-old right-handed female came to the hospital yesterday at 2:05 PM with multiple neurological symptoms. Patient states that she has been feeling dizziness for last couple months. Later she mentioned that she has been having dizzy episodes almost for last 1 year. The dizziness is present about 90% of the time and she cannot do anything. The dizziness is worse when she leans over, or stands up or any movement of the head makes it worse. She has to grab onto things. Yesterday she could hardly sit on the side of the bed and felt will fall down. Patient denies any loss of hearing, any pain or pops in the ear. Denies any nausea or vomiting. She does have tinnitus in both ears. Patient has not seen ENT specialist in the past. Patient states that on 03/22/2019, she passed out, but does not know how long she was out for. She broke her ankle. She was diagnosed with vasovagal syncope after she underwent a tilt table test. Patient later stated that the vertigo occurs every day lasting for about half to 1 hour. Then she said it is present 90% of the time as mentioned above. She is also seeing double vision when she is reading or watching TV too much. Otherwise she does not have diplopia. This has been going on for last 1 month. The diplopia resolves when she closes 1 or the other eye. Denies any dysphagia, or eyelid droopiness or any strokelike symptoms like focal numbness, tingling weakness slurred speech or facial droop. Also complains of headaches and paresthesias in the left occipital region going on for last 3 months. It occurs almost every 3 days lasting for about 6 hours. It feels like ants are crawling in the left occipital region. She usually takes pain pill and cold pack and it alleviates the pain. She does have a pinched nerve in the neck. Vital signs on arrival blood pressure 103/69, pulse rate 99, temperature 97.9. Blood test shows normal CBC, PT/INR, normal CMP, troponin. UA is negative. CT head showed no acute bleed or mass effect. 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 Moderate generalized atrophy. I personally reviewed CT head, agree with the findings. Generalized paranasal sinuses and external auditory canals are clear. EKG showed sinus rhythm with occasional supraventricular premature complexes. Patient denies diabetes. She does have hypertension and hyperlipidemia. Denies any tobacco or or regular alcohol use. Home medications include simvastatin 20 mg, baclofen 5 mg at bedtime, verapamil, Xanax 0.5 mg twice daily as needed, Zoloft 200 mg at bedtime and Imdur. Review of Systems All pertinent positive and negative review of systems mentioned in the HPI, otherwise unremarkable. 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 fused with cadaver bones, L3-4-5 fused with metal Past Anesthesia/Blood Transfusion Reactions: No Reported Reaction Past Psychological History: Anxiety, Depression Smoking Status: Never smoker Past Alcohol Use History: Rare Past Drug Use History: None Reported - Past Family History Mother Family Medical History: Congestive Heart Failure (CHF) Sister(s) Family Medical History: Cancer Additional Family Medical History / Comment(s): pancreatic Son(s) Family Medical History: Cancer Additional Family Medical History / Comment(s): Leukemia Father Family Medical History: Renal Disease Additional Family Medical History / Comment(s): at 46. Medications and Allergies Home Medications Medication Instructions Recorded Confirmed Type Isosorbide Mononitrate ER [Imdur] 30 mg PO DAILY 02/05/15 11/13/24 History Sertraline HCl [Zoloft] 200 mg PO HS 02/05/15 11/13/24 History ALPRAZolam [Xanax] 0.5 mg PO BID PRN 11/01/21 11/13/24 History Simvastatin [Zocor] 20 mg PO DAILY 11/01/21 11/13/24 History Vit C/E/Zn/Coppr/Lutein/Zeaxan 1 tab PO BID 11/01/21 11/13/24 History [Preservision Areds 2 Chew Tab] HYDROcodone/APAP 5-325MG [[place] 1 tab PO Q6HR PRN #28 tab 11/03/21 11/13/24 Rx 5-325] Baclofen 5 mg PO HS 04/26/23 11/13/24 History Verapamil HCl [Verapamil ER] 240 mg PO HS 04/26/23 11/13/24 History Allergies Allergy/AdvReac Type Severity Reaction Status Date / Time azithromycin Allergy Anaphylaxis Verified 11/13/24 08:59 [From Zithromax Z-Bo] doxycycline Allergy Anaphylaxis, Verified 11/13/24 08:59 stops breathing Sulfa (Sulfonamide Allergy Anaphylaxis Verified 11/13/24 08:59 Antibiotics) Physical Examination - Vital Signs Vital Signs: Vital Signs Temp Pulse Pulse Resp BP BP Pulse Ox 11/13/24 02:00 97.9 F 81 17 153/73 97 11/12/24 21:08 90 18 161/72 95 11/12/24 17:20 89 20 146/80 96 11/12/24 14:19 97.9 F 99 20 103/69 95 Intake and Output 11/12/24 11/13/24 11/13/24 22:59 06:59 14:59 Other: # Voids 2 # Bowel Movements 1 Patient is an elderly female, very pleasant, in no acute distress. Patient is alert awake oriented to time place and person. Speech and language functions are normal. Patient can name and repeat very well. No aphasia or dy sarthria. Attention, concentration and fund of knowledge is adequate. On cranial nerve examination, pupils are equal, round and reacting to light, visual webster are full on confrontation, with no neglect on double simultaneous stimulation. Extraocular muscles are intact with no nystagmus. She only notices diplopia with distant gaze sometimes. Face is symmetric, tongue protrudes to the midline. Palatal elevation and sensation normal. Apparently her hearing appears very normal for normal conversation, however for finger rubbing, it was decreased severely bilaterally. Her shoulder shrug normal, facial sensation normal. On muscle strength testing, there is no pronator drift and the strength is normal in arms and legs distally and proximally, except hip flexion which is about 4 bilaterally. Deep tendon reflexes are symmetric to all over and plantars downgoing. No clonus. Sensory to touch is equal with no neglect on double simultaneous stimulation. Cerebellar function showed no ataxia for [id number] testing. No dysdiadochokinesia. No ataxia for [id number] testing on either side. Tone and bulk of muscles normal. Gait deferred.. On general examination, there is no carotid bruit or murmur, S1-S2 audible. Chest is clear on consultation. Abdomen is soft nontender. No organomegaly, bowel sounds present. Peripheral pulses are present. No peripheral edema. Results - Laboratory Findings CBC and BMP: 11/12/24 14:45 11/12/24 14:45 Abnormal Lab Findings: Abnormal Labs 11/12/24 11/12/24 11/12/24 14:45 14:45 18:42 Monocytes # 1.10 H Creatinine 1.24 H Glucose 115 H Ur Leukocyte Esterase Small H Urine WBC 8 H Ur Squamous Epith Cells 7 H Urine Bacteria Rare H Hyaline Casts 8 H Urine Mucus Rare H Assessment and Plan Assessment: * Vertigo, possible labyrinthitis versus vestibular neuronitis * Occipital neuralgia, left side * Diplopia, unclear cause, probably due to vestibular dysfunction * Hypertension * Hyperlipidemia Plan: * Meclizine 25 mg p.o. 3 times daily as needed dizziness * Consider Medrol Dosepak * Check B12, folate, TSH. * Recommend ENT consultation outpatient to evaluate for peripheral vestibular dysfunction * MRI brain without contrast revealed no evidence of intracranial mass or acute/subacute infarct. Nonspecific white matter changes, likely related to small vessel ischemic disease. Scattered foci of prior microhemorrhage identified. This can be seen with a variety of cerebral small vessel disease and other vascular causes. * CTA of head and neck revealed no flow-limiting stenosis bilateral carotid bifurcation. Some mild fusiform prominence of the distal left vertebral artery versus calcification is present. [place] otherwise appears within normal limits. * For possible occipital neuralgia, suggest gabapentin 200 mg twice daily, but patient wants to hold off on it. She is concerned about "addiction" to the medication. Alternatively, Lyrica could be considered. * PT OT evaluate gait. * Neurologically clear, if cleared by PT OT. * Thank you for the consult. Time with Patient: Greater than 30
[2024-11-13] MEDS: ATORVASTATIN 10 MG TAB PO SCH (11:44)
[2024-11-13] MEDS: ISOSORBIDE MONONITRATE ER 30 MG TAB.ER.24H PO SCH (11:44)
[2024-11-13] MEDS: methylPREDNISolone SOD SUCCI 125 MG/2 ML VIAL IV STA (14:54)
[2024-11-13] MEDS: FLUDROCORTISONE 0.1 MG TAB PO SCH (14:55)
--- NOTE | 2024-11-13 15:08 | XR ---
EXAMINATION TYPE: XR chest 1V portable DATE OF EXAM: 11/13/2024 2:57 PM COMPARISON: Chest radiographs from 01/16/2024, the chest 04/26/2023 TECHNIQUE: XR chest 1V portable Portable AP radiograph of the chest. CLINICAL INDICATION:Female, 84 years old with history of Cough, congestion; FINDINGS: Lungs/Pleura: There is no evidence of pleural effusion, focal consolidation, or pneumothorax. Chroni c interstitial prominence. Pulmonary vascularity: Unremarkable. Heart/mediastinum: Cardiomediastinal silhouette is enlarged and stable. Musculoskeletal: No acute osseous pathology. IMPRESSION: 1. No acute cardiopulmonary disease/process. 2. Chronic interstitial changes corresponding to known interstitial lung disease. [facility], , 11/13/2024 3:06 PM
[2024-11-13 17:57] LABS: Vitamin B12 1554.0 pg/mL (200.0-944.0)
[2024-11-14] MEDS ORDERED: DEXTROSE 50% SYRINGE 50 ML IVP PRN ×2 (08:26)
--- NOTE | 2024-11-14 08:39 | P.PN ---
Subjective Progress Note Date: 11/14/24 H&P Date: 11/13/24 This is an 84-year-old female with past medical history of dizziness, left arm weakness, tinnitus bilateral ears ,cervical degenerative disc disease, radiculopathy, cervical spinal stenosis, CAD, arrhythmia, hypertension, hyperlipidemia, depression, and multiple other medical issues presented to the ER with progressive dizziness all day long accompanied by bilateral diplopia with reading or watching TV for an extensive amount of time. Resolves with closing eyes. denies nausea vomiting or abdominal pain. Denies any syncope, motor strength loss, slurred speech or facial droop. reports normally her dizziness is only with standing or leaning over for years. discloses she saw her stationary equipment mechanic Dr. Duffy September 2024 for blurred vision, reporting it was a ne gative exam with no new medications recommended. Recently underwent cervical epidurogram, cervical epidural steroid injection at [facility] on 10/24/2024 with preoperative diagnosis reporting cervical degenerative disc disease, cervical radiculopathy, cervical spondylosis with cervical facet arthropathy without myelopathy and cervical spinal stenosis. EKG reported sinus rhythm with occasional supraventricular Premature complexes. Brain CT reported no acute bleed or mass effect, remote lacunar infarct in the left external capsule, moderate generalized atrophy. CT angio head neck reported no flow- limiting stenosis bilateral carotid bifurcations, some mild fusiform prominence of the distal left vertebral artery versus calcification present, [place] otherwise appears within normal limits. Afebrile, normal WBC. Reports dizziness has improved after taking meclizine. 11/14/2024 Florinef initiated yesterday for orthostatic hypotension with resolution of this morning. Brain MRI reported no evidence of intracranial mass or acute/subacute infarct, nonspecific white matter changes, likely related to small vessel ischemic disease, scattered foci of prior microhemorrhage identified seen with a variety of cerebral small vessel diseases and other vascular causes. maintaining O2 sats in the 90s on room air, chest x-ray reporting no acute cardiopulmonary disease/process, chronic interstitial changes corresponding to known interstitial lung disease. Hemoglobin A1c 6.2. A.m. labs pending. Complains of headache. Sitting up at bedside, eating. Reports she is feeling better, close to her baseline. Denies nausea vomiting or diarrhea. Denies chest pain, palpitations or shortness of breath. Objective - Vital Signs Vital signs: Vital Signs Temp 97.7 F 11/14/24 07:31 Pulse 86 11/14/24 07:31 Resp 14 11/14/24 07:31 BP 177/84 11/14/24 07:31 Pulse Ox 95 11/14/24 07:31 FiO2 Intake & Output 11/13/24 11/14/24 11/14/24 18:59 06:59 18:59 Intake Total 118 Balance 118 Weight 81.193 kg Intake: Oral 118 Other: Voiding Method Diaper # Voids 1 2 # Bowel Movements 1 - Exam VITAL SIGNS: [Reviewed] GENERAL: alert and oriented x 3, sitting up, no acute distress. HEENT: Conjunctivae normal. eyes normal. mmm. NECK: Supple, no JVD. CARDIOVASCULAR: S1, S2 regular. no murmur. RESPIRATION: Unlabored, equal air entry, essentially clear to auscultation with bilateral bases diminished. ABDOMEN: Soft, nontender . No guarding. no masses palpable.+BS LEGS: Minimal edema, no calf tenderness, peripheral pulses intact. NERVOUS SYSTEM: Cranial N 2-12 grossly normal. No focal deficits. Strength and sensation grossly intact. Skin: Warm and dry, no rash - Labs CBC & Chem 7: 11/14/24 06:41 11/12/24 14:45 Labs: Abnormal Lab Results - Last 24 Hours (Table) 11/12/24 11/12/24 11/12/24 Range/Units 06:00 06:00 14:45 Hemoglobin A1c 6.2 H (<=6.0) % Vitamin B12 1554.0 H (200.0-944.0) pg/mL Folate 36.50 H (4.40-31.00) ng/mL Assessment and Plan Assessment: Acute on chronic dizziness with bilateral diplopia, vertigo -improved with meclizine, workup in progress. 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 Asthma, history of CAD Hypertension Hyperlipidemia Arrhythmia Depression Anxiety, panic attacks History of vasovagal syncope Obesity, BMI 30 Prediabetic, hemoglobin A1c 6.2 Plan: Continue on current medication regimen ,monitoring and symptomatic treatment. Lyrica initiated as recommended per neurology for possible occipital neuralgia left side -patient declining Neurontin .maintain Florinef with ort hostatic vital signs every shift. Continue on meclizine. Prediabetic, consult placed to dietitian. PT/OT consults in place, evaluation pending. Potential subacute rehab at discharge. The impression and plan of care has been dictated as directed. : I performed a history and examination of this patient, discussed the same with the dictator. I agree with the dictator's note ,documented as a scribe. Any additional findings or plans will be noted.
[2024-11-14] MEDS: MECLIZINE 25 MG TAB PO PRN (09:58)
[2024-11-14 10:12] LABS: HCT 42.8 % (37.2-46.3); HGB 14.2 g/dL (12.0-15.0); MCH 28.7 pg (27.0-32.0); MCHC 33.2 g/dL (32.0-37.0); MCV 86.6 FL (80.0-97.0); NRBC Per 100 WBC 0 X 10*3/uL (0.00-0.01); Platelet Count 284 X 10*3/uL (140-440); RBC 4.94 X 10*6/uL (4.10-5.20); RDW 13.2 % (11.5-14.5); WBC 9.51 X 10*3/uL (4.50-10.00)
[2024-11-14 10:13] LABS: Basophils # (A) 0.02 X 10*3/uL (0.00-0.10); Basophils % (A) 0.2 %; Eosinophils # (A) 0 X 10*3/uL (0.04-0.35); Eosinophils % (A) 0 %; Immature Grans, Automated 0.30 %; Lymphocytes # (A) 1.01 X 10*3/uL (0.90-5.00); Lymphocytes % (A) 10.6 %; Monocytes # (A) 0.20 X 10*3/uL (0.20-1.00); Monocytes % (A) 2.1 %; Neutrophils # (A) 8.25 X 10*3/uL (1.80-7.70); Neutrophils % (A) 86.8 %
[2024-11-14] MEDS: PREGABALIN 75 MG CAP PO SCH (10:23)
[2024-11-14 10:32] LABS: Anion Gap 13.30 mmol/L (4.00-12.00); BUN/Creat Ratio 8.00 Ratio (12.00-20.00); Blood Urea Nitrogen 9.6 mg/dL (9.0-27.0); Calcium 9.1 mg/dL (8.7-10.3); Carbon Dioxide 23.7 mmol/L (21.6-31.8); Chloride 105 mmol/L (96-109); Glucose 225 mg/dL (70-110); Magnesium 2.1 mg/dL (1.5-2.4); Potassium 3.6 mmol/L (3.5-5.5); Sodium 142 mmol/L (135-145)
--- NOTE | 2024-11-14 10:34 | P.DS ---
Providers Date of admission: 11/13/24 14:00 Expected date of discharge: 11/14/24 Attending physician: Tima Miller Consults: 11/12/24 20:29 Consult Physician Stat Consulting Provider: Chip Vincent Consult Reason/Comments: Bilateral diplopia, constant dizziness Do you want consulting provider notified?: Yes, Notify in am Primary care physician: Tima Miller [facility] Course: Final Diagnoses: Acute on chronic dizziness with bilateral diplopia, vertigo -improved with meclizine, workup in progress. 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 Asthma, history of CAD Hypertension Hyperlipidemia Arrhythmia Depression Anxiety, panic attacks History of vasovagal syncope Obesity, BMI 30 Prediabetic, hemoglobin A1c 6.2 Hospital course:This is an 84-year-old female with past medical history of dizziness, left arm weakness, tinnitus bilateral ears ,cervical degenerative disc disease, radiculopathy, cervical spinal stenosis, CAD, arrhythmia, hypertension, hyperlipidemia, depression, and multiple other medical issues presented to the ER with progressive dizziness all day long accompanied by bilateral diplopia with reading or watching TV for an extensive amount of time. Resolves with closing eyes. denies nausea vomiting or abdominal pain. Denies any syncope, motor strength loss, slurred speech or facial droop. reports normally her dizziness is only with standing or leaning over for years. discloses she saw her label rewinder Dr. Duffy September 2024 for blurred vision, reporting it was a negative exam with no new medications recommended. Recently underwent cervical epidurogram, cervical epidural steroid injection at [facility] on 10/24/2024 with preoperative diagnosis reporting cervical degenerative disc disease, cervical radiculopathy, cervical spondylosis with cervical facet arthropathy without myelopathy and cervical spinal stenosis. EKG reported sinus rhythm with occasional supraventricular Premature complexes. Brain CT reported no acute bleed or mass effect, remote lacunar infarct in the left external capsule, moderate generalized atrophy. CT angio head neck reported no flow-limiting stenosis bilateral carotid bifurcations, some mild fusiform prominence of the distal left vertebral artery versus calcification present, [place] otherwise appears within normal limits. Afebrile, normal WBC. Reports dizziness has improved after taking meclizine. 11/14/2024 Florinef initiated yesterday for orthostatic hypotension with resolution of this morning. Brain MRI reported no evidence of intracranial mass or acute/subacute infarct, nonspecific white matter changes, likely related to small vessel ischemic disease, scattered foci of prior microhemorrhage identified seen with a variety of cerebral small vessel diseases and other vascular causes. maintaining O2 sats in the 90s on room air, chest x-ray reporting no acute cardiopulmonary disease/process, chronic interstitial changes corresponding to known interstitial lung disease. Hemoglobin A1c 6.2. A.m. labs pending. Complains of headache. Sitting up at bedside, eating. Reports she is feeling better, close to her baseline. Denies nausea vomiting or diarrhea. Denies chest pain, palpitations or shortness of breath. Continue on current medication regimen ,monitoring and symptomatic treatment. Lyrica initiated as recommended per neurology for possible occipital neuralgia left side -patient declining Neurontin .maintain Florinef with orthostatic vital signs every shift. Continue on meclizine. Prediabetic, consult placed to dietitian. PT/OT consults in place, evaluation pending. Potential subacute rehab at discharge. Evaluated by PT, recommending home with home care. Cleared by neurology for discharge. Patient will be discharged home with home care today in stable condition with guarded prognosis. Orthostatic hypotension resolved, hold Florinef at discharge based on repeat blood pressure readings this morning ,recheck at follow-up visit. Reevaluated and patient has been accepted at [facility] subacute rehab. Patient will be discharged on Monday morning after 3 night stay. The impression and plan of care has been dictated as directed. : I performed a history and examination of this patient, discussed the same with the dictator. I agree with the dictator's note ,documented as a scribe. Any additional findings or plans will be noted. Patient Condition at Discharge: Stable Plan - Discharge Summary Discharge Rx Participant: No New Discharge Prescriptions: New Meclizine [Antivert] 12.5 mg PO TID PRN #90 tablet PRN Reason: Vertigo Pregabalin [Lyrica] 75 mg PO BID 3 Days #6 cap methylPREDNISolone Dose Pack [Medrol Dose Pack] 4 mg PO DIRECTED #1 packet Continue Isosorbide Mononitrate ER [Imdur] 30 mg PO DAILY Sertraline HCl [Zoloft] 200 mg PO HS ALPRAZolam [Xanax] 0.5 mg PO BID PRN PRN Reason: Anxiety Vit C/E/Zn/Coppr/Lutein/Zeaxan [Pres[place] 2 Chew Tab] 1 tab PO BID Simvastatin [Zocor] 20 mg PO DAILY HYDROcodone/APAP 5-325MG [[place] 5-325] 1 tab PO Q6HR PRN #28 tab PRN Reason: Pain Baclofen 5 mg PO HS Verapamil HCl [Verapamil ER] 240 mg PO HS Discharge Medication List Isosorbide Mononitrate ER [Imdur] 30 mg PO DAILY 02/05/15 [History] Sertraline HCl [Zoloft] 200 mg PO HS 02/05/15 [History] ALPRAZolam [Xanax] 0.5 mg PO BID PRN 11/01/21 [History] Simvastatin [Zocor] 20 mg PO DAILY 11/01/21 [History] Vit C/E/Zn/Coppr/Lutein/Zeaxan [Preserv[place] 2 Chew Tab] 1 tab PO BID 11/01/21 [History] HYDROcodone/APAP 5-325MG [[place] 5-325] 1 tab PO Q6HR PRN #28 tab 11/03/21 [Rx] Baclofen 5 mg PO HS 04/26/23 [History] Verapamil HCl [Verapamil ER] 240 mg PO HS 04/26/23 [History] Meclizine [Antivert] 12.5 mg PO TID PRN #90 tablet 11/14/24 [Rx] Pregabalin [Lyrica] 75 mg PO BID 3 Days #6 cap 11/14/24 [Rx] methylPREDNISolone Dose Pack [Medrol Dose Pack] 4 mg PO DIRECTED #1 packet 11/14/24 [Rx] Follow up Appointment(s)/Referral(s): Sg Duffy MD [STAFF PHYSICIAN] - 1 Week [facility] [place], [NON-STAFF] - 1 Week Tima Miller MD [Primary Care Provider] - 1 Week Activity/Diet/Wound Care/Special Instructions: hgbA1c 6.2, consist. carb diet Discharge Disposition: TRANSFER TO SNF/ECF
[2024-11-14 12:40] LABS: Glucose,Whole Blood 160 mg/dL (70-110)
[2024-11-14] MEDS: POTASSIUM CHLORIDE ER 20 MEQ TAB.ER PO STA (13:10)
[2024-11-14] MEDS: INSULIN LISPRO (HumaLOG) 100 UNIT/ML 10 mL VL SQ SCH (13:10)
[2024-11-14 14:09] VITALS: BMI 29.7
[2024-11-14] MEDS: predniSONE 20 MG TAB PO SCH (15:46)
[2024-11-14 17:30] LABS: Glucose,Whole Blood 159 mg/dL (70-110)
--- NOTE | 2024-11-14 18:46 | P.PN ---
Subjective Progress Note Date: 11/14/24 Patient was seen for follow-up. Patient states that her dizziness has improved, close to baseline. No new focal symptoms. Objective - Vital Signs Vital signs: Vital Signs Temp 97.7 F 11/14/24 07:31 Pulse 86 11/14/24 07:31 Resp 14 11/14/24 07:31 BP 177/84 11/14/24 07:31 Pulse Ox 95 11/14/24 07:31 FiO2 Intake & Output 11/13/24 11/14/24 11/14/24 18:59 06:59 18:59 Intake Total 118 120 Balance 118 120 Weight 81.193 kg Intake: Oral 118 120 Other: Voiding Method Diaper Toilet Bedside Commode Diaper # Voids 1 2 # Bowel Movements 1 - Exam Examination normal. Mentation normal. - Labs CBC & Chem 7: 11/14/24 06:41 11/14/24 06:41 Labs: Abnormal Lab Results - Last 24 Hours (Table) 11/12/24 11/12/24 11/12/24 Range/Units 06:00 06:00 14:45 Neutrophils # (1.80-7.70) X 10*3/uL Eosinophils # (0.04-0.35) X 10*3/uL Anion Gap (4.00-12.00) mmol/L Est GFR (CKD-EPI) (>=60) BUN/Creatinine Ratio (12.00-20.00) Ratio Glucose (70-110) mg/dL Hemoglobin A1c 6.2 H (<=6.0) % Vitamin B12 1554.0 H (200.0-944.0) pg/mL Folate 36.50 H (4.40-31.00) ng/mL 11/14/24 11/14/24 Range/Units 06:41 06:41 Neutrophils # 8.25 H (1.80-7.70) X 10*3/uL Eosinophils # 0 L (0.04-0.35) X 10*3/uL Anion Gap 13.30 H (4.00-12.00) mmol/L Est GFR (CKD-EPI) 45 L (>=60) BUN/Creatinine Ratio 8.00 L (12.00-20.00) Ratio Glucose 225 H (70-110) mg/dL Hemoglobin A1c (<=6.0) % Vitamin B12 (200.0-944.0) pg/mL Folate (4.40-31.00) ng/mL Assessment and Plan Assessment: * Vertigo, possible labyrinthitis versus vestibular neuronitis * Occipital neuralgia, left side * Diplopia, unclear cause, probably due to vestibular dysfunction * Hypertension, not well-controlled * Hyperlipidemia Plan: * Patient states her dizziness is slightly better. She still feels off balance. * Meclizine 25 mg p.o. 3 times daily as needed dizziness * Patient states that she used to take prednisone 10 mg every day for "inflammation" for 1 year. It used to help her a lot. She stopped taking prednisone about 2 to 3 weeks ago. She wants to go back on prednisone instead of Medrol Dosepak. Will defer to IM. * B12 1554, folate 36.5, TSH 2.83 * Recommend ENT consultation outpatient to evaluate for peripheral vestibular dysfunction * MRI brain without contrast revealed no evidence of intracranial mass or acute/subacute infarct. Nonspecific white matter changes, likely related to small vessel ischemic disease. Scattered foci of prior microhemorrhage identified. This can be seen with a variety of cerebral small vessel disease and other vascular causes. * CTA of head and neck revealed no flow-limiting stenosis bilateral carotid bifurcation. Some mild fusiform prominence of the distal left vertebral artery versus calcification is present. [place] otherwise appears w ithin normal limits. * Patient's blood pressure is running high, recommend optimize control of blood pressure. * Fasting a.m. lipid panel * Hemoglobin A1c * Patient does have multiple vascular risk factors. We will start aspirin 81 mg daily. Patient agreed. * For possible occipital neuralgia, suggest gabapentin 200 mg twice daily, but patient wants to hold off on it. She is concerned about "addiction" to the medication. Alternatively, Lyrica could be considered. * PT OT evaluate gait. * Orthostatics mildly positive when comparing from supine to standing position. Supine blood pressure 177/84, sitting 163/91 and standing 156/84. Recommend fluids, compression stockings. * Neurologically clear, if cleared by PT OT. Apparently patient going to rehab on Monday.
[2024-11-14 20:28] LABS: Glucose,Whole Blood 250 mg/dL (70-110)
[2024-11-14] MEDS: ASPIRIN 81 MG PO SCH (21:48)
[2024-11-15 06:40] LABS: Glucose,Whole Blood 160 mg/dL (70-110)
[2024-11-15 09:19] LABS: Cholesterol 142.00 mg/dL (0.00-200.00); HDL Cholesterol 45.10 mg/dL (40.00-60.00); LDL Cholesterol,Calculated 64.7 mg/dL (0.0-131.0); Triglycerides 161.00 mg/dL (0.00-149.00); VLDL Calculation 32.20 mg/dL (5.00-40.00)
--- NOTE | 2024-11-15 10:43 | P.PN ---
Subjective Progress Note Date: 11/15/24 H&P Date: 11/13/24 This is an 84-year-old female with past medical history of dizziness, left arm weakness, tinnitus bilateral ears ,cervical degenerative disc disease, radiculopathy, cervical spinal stenosis, CAD, arrhythmia, hypertension, hyperlipidemia, depression, and multiple other medical issues presented to the ER with progressive dizziness all day long accompanied by bilateral diplopia with reading or watching TV for an extensive amount of time. Resolves with closing eyes. denies nausea vomiting or abdominal pain. Denies any syncope, motor strength loss, slurred speech or facial droop. reports normally her dizziness is only with standing or leaning over for years. discloses she saw her scale attendant Dr. Duffy September 2024 for blurred vision, reporting it was a ne gative exam with no new medications recommended. Recently underwent cervical epidurogram, cervical epidural steroid injection at [facility] on 10/24/2024 with preoperative diagnosis reporting cervical degenerative disc disease, cervical radiculopathy, cervical spondylosis with cervical facet arthropathy without myelopathy and cervical spinal stenosis. EKG reported sinus rhythm with occasional supraventricular Premature complexes. Brain CT reported no acute bleed or mass effect, remote lacunar infarct in the left external capsule, moderate generalized atrophy. CT angio head neck reported no flow- limiting stenosis bilateral carotid bifurcations, some mild fusiform prominence of the distal left vertebral artery versus calcification present, [place] otherwise appears within normal limits. Afebrile, normal WBC. Reports dizziness has improved after taking meclizine. 11/14/2024 Florinef initiated yesterday for orthostatic hypotension with resolution of this morning. Brain MRI reported no evidence of intracranial mass or acute/subacute infarct, nonspecific white matter changes, likely related to small vessel ischemic disease, scattered foci of prior microhemorrhage identified seen with a variety of cerebral small vessel diseases and other vascular causes. maintaining O2 sats in the 90s on room air, chest x-ray reporting no acute cardiopulmonary disease/process, chronic interstitial changes corresponding to known interstitial lung disease. Hemoglobin A1c 6.2. A.m. labs pending. Complains of headache. Sitting up at bedside, eating. Reports she is feeling better, close to her baseline. Denies nausea vomiting or diarrhea. Denies chest pain, palpitations or shortness of breath. 11/15/2024. Patient sitting up at bedside, eating breakfast, continues to report improvement with symptoms/dizziness on current med regimen. Denies nausea vomiting or diarrhea. Tolerating consistent carb diet, blood sugars controlled, currently 160. Negative orthostatic hypotension. denies chest pain, palpitations or shortness of breath. Objective - Vital Signs Vital signs: Vital Signs Temp 97.8 F 11/15/24 07:00 Pulse 80 11/15/24 07:00 Resp 17 11/15/24 07:00 BP 156/91 11/15/24 07:00 Pulse Ox 93 L 11/15/24 07:00 FiO2 Intake & Output 11/14/24 11/15/24 11/15/24 18:59 06:59 18:59 Intake Total 356 Output Total 1750 1450 Balance -1394 -1450 Weight 81.193 kg Intake: Oral 356 Output: Urine 800 1450 Post Void Residual 950 Other: Voiding Method Toilet Toilet Toilet Bedside Commode Bedside Commode Bedside Commode Diaper Diaper Indwelling Catheter # Voids 1 - Exam VITAL SIGNS: [Reviewed] GENERAL: alert and oriented x 3, sitting up at bedside, eating breakfast, no acute distress. HEENT: Conjunctivae normal. eyes normal. mmm. NECK: Supple, no JVD. CARDIOVASCULAR: S1, S2 regular. no murmur. RESPIRATION: Unlabored, equal air entry, essentially clear to auscultation with bilateral bases diminished. ABDOMEN: Soft, nontender . No guarding. no masses palpable.+BS LEGS: Minimal edema, no calf tenderness, peripheral pulses intact. NERVOUS SYSTEM: Cranial N 2-12 grossly normal. No focal deficits. Strength and sensation grossly intact. Skin: Warm and dry, no rash - Labs CBC & Chem 7: 11/14/24 06:41 11/14/24 06:41 Labs: Abnormal Lab Results - Last 24 Hours (Table) 11/14/24 11/14/24 11/14/24 Range/Units 06:41 12:37 17:29 POC Glucose (mg/dL) 160 H 159 H (70-110) mg/dL Triglycerides 161.00 H (0.00-149.00) mg/dL 11/14/24 11/15/24 Range/Units 20:26 06:38 POC Glucose (mg/dL) 250 H 160 H (70-110) mg/dL Triglycerides (0.00-149.00) mg/dL Assessment and Plan Assessment: Acute on chronic dizziness with bilateral diplopia, vertigo -improved with meclizine, workup in progress. 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 Asthma, history of CAD Hypertension Hyperlipidemia Arrhythmia Depression Anxiety, panic attacks History of vasovagal syncope Obesity, BMI 30 Prediabetic, hemoglobin A1c 6.2 Plan: Continue on current medication regimen ,monitoring and symptomatic treatment. Continue on meclizine, Lyrica,. PT/OT .maintain supportive care. Discharge planning in progress for tomorrow to [facility] subacute rehab after completing her third night stay. OBRA completed. The impression and plan of care has been dictated as directed. : I performed a history and examination of this patient, discussed the same with the dictator. I agree with the dictator's note ,documented as a scribe. Any additional findings or plans will be noted.
--- NOTE | 2024-11-15 11:26 | P.GSCN ---
History of Present Illness Consult date: 11/15/24 Reason for Consult: Urinary retention Requesting physician: Tima Miller History of present illness: The patient is an 84-year-old white female who has experienced dizziness for at least several months. She also reports intermittent diplopia. She has been evaluated by neurology and is felt to have labyrinthitis or vestibular neuronitis. She was unable to void and a Trivedi catheter was placed, with return of over 600 cc. I am consulted for this reason. Of note, a renal ultrasound performed in November 2023 showed a postvoid residual of 342 cc. The patient is known to me. She was last seen in the office on August 07, 2024. She has been treated for recurrent UTIs, and her postvoid residual at the time of that visit was 185 cc. Urethral dilation was performed, as this has helped her in the past. Of note, a renal ultrasound performed in November 2023 showed a postvoid residual of 342 cc. She was previously seen in November 2019, and her postvoid residual at that time was 87 cc. 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, L3-4-5 fused with metal Past Anesthesia/Blood Transfusion Reactions: No Reported Reaction Past Psychological History: Anxiety, Depression Smoking Status: Never smoker Past Alcohol Use History: Rare Past Drug Use History: None Reported - Past Family History Mother Family Medical History: Congestive Heart Failure (CHF) Sister(s) Family Medical History: Cancer Additional Family Medical History / Comment(s): pancreatic Son(s) Family Medical History: Cancer Additional Family Medical History / Comment(s): Leukemia Father Family Medical History: Renal Disease Additional Family Medical History / Comment(s): at 46. Medications and Allergies Home Medications Medication Instructions Recorded Confirmed Type Isosorbide Mononitrate ER [Imdur] 30 mg PO DAILY 02/05/15 11/13/24 History Sertraline HCl [Zoloft] 200 mg PO HS 02/05/15 11/13/24 History ALPRAZolam [Xanax] 0.5 mg PO BID PRN 11/01/21 11/13/24 History Simvastatin [Zocor] 20 mg PO DAILY 11/01/21 11/13/24 History Vit C/E/Zn/Coppr/Lutein/Zeaxan 1 tab PO BID 11/01/21 11/13/24 History [Preservision Areds 2 Chew Tab] HYDROcodone/APAP 5-325MG [[place] 1 tab PO Q6HR PRN #28 tab 11/03/21 11/13/24 Rx 5-325] Baclofen 5 mg PO HS 04/26/23 11/13/24 History Verapamil HCl [Verapamil ER] 240 mg PO HS 04/26/23 11/13/24 History Meclizine [Antivert] 12.5 mg PO TID PRN #90 tablet 11/14/24 Rx Pregabalin [Lyrica] 75 mg PO BID 3 Days #6 cap 11/14/24 Rx methylPREDNISolone Dose Pack 4 mg PO DIRECTED #1 packet 11/14/24 Rx [Medrol Dose Pack] Allergies Allergy/AdvReac Type Severity Reaction Status Date / Time azithromycin Allergy Anaphylaxis Verified 11/13/24 08:59 [From Zithromax Z-Bo] doxycycline Allergy Anaphylaxis, Verified 11/13/24 08:59 stops breathing Sulfa (Sulfonamide Allergy Anaphylaxis Verified 11/13/24 08:59 Antibiotics) Surgical - Exam Vital Signs Temp Pulse Resp BP Pulse Ox 97.9 F 99 20 103/69 95 11/12/24 14:19 11/12/24 14:19 11/12/24 14:19 11/12/24 14:19 11/12/24 14:19 - General well developed, well nourished, no distress - Respiratory normal respiratory effort - Genitourinary Trivedi catheter intact, draining clear yellow urine. - Psychiatric oriented to time, oriented to person, oriented to place, speech is normal, memory intact Results - Labs 11/14/24 06:41 11/14/24 06:41 Abnormal Lab Results - Last 24 Hours (Table) 11/14/24 11/14/24 11/14/24 Range/Units 06:41 06:41 12:37 Neutrophils # 8.25 H (1.80-7.70) X 10*3/uL Eosinophils # 0 L (0.04-0.35) X 10*3/uL Anion Gap 13.30 H (4.00-12.00) mmol/L Est GFR (CKD-EPI) 45 L (>=60) BUN/Creatinine Ratio 8.00 L (12.00-20.00) Ratio Glucose 225 H (70-110) mg/dL POC Glucose (mg/dL) 160 H (70-110) mg/dL 11/14/24 11/14/24 11/15/24 Range/Units 17:29 20:26 06:38 Neutrophils # (1.80-7.70) X 10*3/uL Eosinophils # (0.04-0.35) X 10*3/uL Anion Gap (4.00-12.00) mmol/L Est GFR (CKD-EPI) (>=60) BUN/Creatinine Ratio (12.00-20.00) Ratio Glucose (70-110) mg/dL POC Glucose (mg/dL) 159 H 250 H 160 H (70-110) mg/dL Diabetes panel 11/14/24 Range/Units 06:41 Sodium 142 (135-145) mmol/L Potassium 3.6 (3.5-5.5) mmol/L Chloride 105 (96-109) mmol/L Carbon Dioxide 23.7 (21.6-31.8) mmol/L BUN 9.6 (9.0-27.0) mg/dL Creatinine 1.2 (0.6-1.5) mg/dL Glucose 225 H (70-110) mg/dL Calcium 9.1 (8.7-10.3) mg/dL Calcium panel 11/14/24 Range/Units 06:41 Calcium 9.1 (8.7-10.3) mg/dL Pituitary panel 11/14/24 Range/Units 06:41 Sodium 142 (135-145) mmol/L Potassium 3.6 (3.5-5.5) mmol/L Chloride 105 (96-109) mmol/L Carbon Dioxide 23.7 (21.6-31.8) mmol/L BUN 9.6 (9.0-27.0) mg/dL Creatinine 1.2 (0.6-1.5) mg/dL Glucose 225 H (70-110) mg/dL Calcium 9.1 (8.7-10.3) mg/dL Adrenal panel 11/14/24 Range/Units 06:41 Sodium 142 (135-145) mmol/L Potassium 3.6 (3.5-5.5) mmol/L Chloride 105 (96-109) mmol/L Carbon Dioxide 23.7 (21.6-31.8) mmol/L BUN 9.6 (9.0-27.0) mg/dL Creatinine 1.2 (0.6-1.5) mg/dL Glucose 225 H (70-110) mg/dL Calcium 9.1 (8.7-10.3) mg/dL - Imaging US - kidney/bladder: report reviewed Assessment and Plan (1) Retention of urine, unspecified Current Visit: Yes Status: Acute Code(s): R33.9 - RETENTION OF URINE, UNSPECIFIED SNOMED Code(s): 415217865 Plan: It is anticipated that the patient will be transferred to [facility] on the [place] for rehab. She will follow-up with me as an outpatient to arrange Trivedi catheter removal. Time with Patient: Greater than 30
[2024-11-15 12:28] LABS: Glucose,Whole Blood 165 mg/dL (70-110)
[2024-11-15] MEDS: VIT A,C & E-LUTEIN-MINERALS 1 EACH TAB PO SCH (13:10)
[2024-11-15 17:07] LABS: Glucose,Whole Blood 242 mg/dL (70-110)
[2024-11-15] MEDS: MECLIZINE 25 MG TAB PO SCH (17:38)
[2024-11-15 19:44] LABS: Glucose,Whole Blood 220 mg/dL (70-110)
[2024-11-15 20:08] VITALS: RESP 18
[2024-11-16 05:47] LABS: Glucose,Whole Blood 119 mg/dL (70-110)
[2024-11-16 08:14] VITALS: BP 175/82; PULSE 72; TEMP 97.7
--- NOTE | 2024-11-16 09:49 | P.DS ---
Providers Date of admission: 11/13/24 14:00 Expected date of discharge: 11/16/24 Attending physician: Tima Miller Consults: 11/12/24 20:29 Consult Physician Stat Consulting Provider: Chip Vincent Consult Reason/Comments: Bilateral diplopia, constant dizziness Do you want consulting provider notified?: Yes, Notify in am 11/14/24 18:57 Consult Physician Routine Consulting Provider: Ernie Wayne Consult Reason/Comments: Retention Do you want consulting provider notified?: Yes, Notify in am Primary care physician: Tima Miller Patient Condition at Discharge: Stable Plan - Discharge Summary Discharge Rx Participant: No New Discharge Prescriptions: New Meclizine [Antivert] 12.5 mg PO TID PRN #90 tablet PRN Reason: Vertigo Pregabalin [Lyrica] 75 mg PO BID 3 Days #6 cap methylPREDNISolone Dose Pack [Medrol Dose Pack] 4 mg PO DIRECTED #1 packet Continue RX: Isosorbide Mononitrate ER [Imdur] 30 mg PO DAILY RX: Sertraline HCl [Zoloft] 200 mg PO HS RX: ALPRAZolam [Xanax] 0.5 mg PO BID PRN PRN Reason: Anxiety RX: Vit C/E/Zn/Coppr/Lutein/Zeaxan [Preservision Areds 2 Chew Tab] 1 tab PO BID RX: Simvastatin [Zocor] 20 mg PO DAILY RX: HYDROcodone/APAP 5-325MG [[place] 5-325] 1 tab PO Q6HR PRN #28 tab PRN Reason: Pain RX: Baclofen 5 mg PO HS RX: Verapamil HCl [Verapamil ER] 240 mg PO HS Discharge Medication List RX: Isosorbide Mononitrate ER [Imdur] 30 mg PO DAILY 02/05/15 [History] RX: Sertraline HCl [Zoloft] 200 mg PO HS 02/05/15 [History] RX: ALPRAZolam [Xanax] 0.5 mg PO BID PRN 11/01/21 [History] RX: Simvastatin [Zocor] 20 mg PO DAILY 11/01/21 [History] RX: Vit C/E/Zn/Coppr/Lutein/Zeaxan [Preservision Areds 2 Chew Tab] 1 tab PO BID 11/01/21 [History] RX: HYDROcodone/APAP 5-325MG [[place] 5-325] 1 tab PO Q6HR PRN #28 tab 11/03/21 [Rx] RX: Baclofen 5 mg PO HS 04/26/23 [History] RX: Verapamil HCl [Verapamil ER] 240 mg PO HS 04/26/23 [History] Meclizine [Antivert] 12.5 mg PO TID PRN #90 tablet 11/14/24 [Rx] Pregabalin [Lyrica] 75 mg PO BID 3 Days #6 cap 11/14/24 [Rx] methylPREDNISolone Dose Pack [Medrol Dose Pack] 4 mg PO DIRECTED #1 packet 11/14/24 [Rx] Follow up Appointment(s)/Referral(s): Ernie Wayne MD [STAFF PHYSICIAN] - 1 Week Sg Duffy MD [STAFF PHYSICIAN] - 1 Week [facility], [NON-STAFF] - 1 Week Tima Miller MD [Primary Care Provider] - 1 Week Activity/Diet/Wound Care/Special Instructions: hgbA1c 6.2, consist. carb diet Discharge Disposition: TRANSFER TO SNF/ECF
--- NOTE | 2024-11-16 17:15 | P.PN ---
Subjective Progress Note Date: 11/15/24 Patient was seen for follow-up. Patient states that her dizziness has been persisting, "hardly able to stand up". No new focal symptoms. Objective - Vital Signs Vital signs: Vital Signs Temp 98.2 F 11/15/24 14:42 Pulse 85 11/15/24 14:42 Resp 16 11/15/24 14:42 BP 168/98 11/15/24 14:42 Pulse Ox 95 11/15/24 14:42 FiO2 Intake & Output 11/14/24 11/15/24 11/15/24 18:59 06:59 18:59 Intake Total 356 1220 Output Total 1750 1450 650 Balance -1394 -1450 570 Weight 81.193 kg Intake: Oral 356 1220 Output: Urine 800 1450 650 Post Void Residual 950 Other: Voiding Method Toilet Toilet Toilet Bedside Commode Bedside Commode Bedside Commode Diaper Diaper Indwelling Catheter # Voids 1 - Exam Patient is laying comfortably in the bed. Speech and language functions are normal. She appears slightly anxious. Examination is stable. - Labs CBC & Chem 7: 11/14/24 06:41 11/14/24 06:41 Labs: Abnormal Lab Results - Last 24 Hours (Table) 11/14/24 11/14/24 11/14/24 Range/Units 06:41 17:29 20:26 POC Glucose (mg/dL) 159 H 250 H (70-110) mg/dL Triglycerides 161.00 H (0.00-149.00) mg/dL 11/15/24 11/15/24 11/15/24 Range/Units 06:38 12:25 17:05 POC Glucose (mg/dL) 160 H 165 H 242 H (70-110) mg/dL Triglycerides (0.00-149.00) mg/dL Assessment and Plan Assessment: * Vertigo, possible labyrinthitis versus vestibular neuronitis * Occipital neuralgia, left side * Diplopia, unclear cause, probably due to vestibular dysfunction * Hypertension, not well-controlled * Hyperlipidemia Plan: * Patient continues to feel dizziness. Patient has not received meclizine since yesterday 9 AM. Nurse was recommended to make it scheduled 25 mg 3 times daily. * Meclizine 25 mg p.o. 3 times daily as needed dizziness * Patient states that she used to take prednisone 10 mg every day for "inflammation" for 1 year. It used to help her a lot. She stopped taking prednisone about 2 to 3 weeks ago. She wants to go back on prednisone instead of Medrol Dosepak. Will defer to IM. * B12 1554, folate 36.5, TSH 2.83 * Recommend ENT consultation outpatient to evaluate for peripheral vestibular dysfunction * MRI brain without contrast revealed no evidence of intracranial mass or acute/subacute infarct. Nonspecific white matter changes, likely related to small vessel ischemic disease. Scattered foci of prior microhemorrhage identified. This can be seen with a variety of cerebral small vessel disease and other vascular causes. * CTA of head and neck revealed no flow-limiting stenosis bilateral carotid bifurcation. Some mild fusiform prominence of the distal left vertebral artery versus calcification is present. [place] otherwise appears within normal limits. * Patient's blood pressure is running high, recommend optimize control of blood pressure. * Fasting a.m. lipid panel with cholesterol 142, LDL 64, HDL 45 and triglycerides 161. Lipids well-controlled, continue home dose of Lipitor 10 mg daily. * Hemoglobin A1c 6.2. * Patient does have multiple vascular risk factors. We will start aspirin 81 mg daily. Patient agreed. * For possible occipital neuralgia, suggest gabapentin 200 mg twice daily, but patient wants to hold off on it. She is concerned about "addiction" to the medication. Alternatively, Lyrica could be considered. * PT OT evaluate gait. * Orthostatics mildly positive when comparing from supine to standing position. Supine blood pressure 177/84, sitting 163/91 and standing 156/84. Recommend fluids, compression stockings. * Neurologically clear, if cleared by PT OT. Patient accepted to rehab facility.
== END 2024-11-16 12:10 | DRG 312 ==
LOC: EC 14:05 → 6NMEDSUR 20:45 → OBSVTOIN 11-13 14:00
PROVIDERS: ADMIT Family Medicine; ATTEND Family Medicine
DX: I95.1 Orthostatic hypotension (principal); E66.9 Obesity, unspecified; F32.A Depression, unspecified; I10 Essential (primary) hypertension; J45.909 Unspecified asthma, uncomplicated; H83.02 Labyrinthitis, left ear; E78.5 Hyperlipidemia, unspecified; F41.0 Panic disorder [episodic paroxysmal anxiety]; M54.81 Occipital neuralgia; G58.8 Other specified mononeuropathies; M48.02 Spinal stenosis, cervical region; M50.10 Cervical disc disorder with radiculopathy, unspecified cervical region; H53.2 Diplopia; M47.22 Other spondylosis with radiculopathy, cervical region; H93.13 Tinnitus, bilateral; I25.10 Atherosclerotic heart disease of native coronary artery without angina pectoris; I49.1 Atrial premature depolarization; R73.03 Prediabetes; Z68.30 Body mass index [BMI] 30.0-30.9, adult; Z79.899 Other long term (current) drug therapy; Z86.73 Personal history of transient ischemic attack (TIA), and cerebral infarction without residual deficits; Z87.440 Personal history of urinary (tract) infections; Z86.14 Personal history of Methicillin resistant Staphylococcus aureus infection; Z71.3 Dietary counseling and surveillance; Z98.1 Arthrodesis status; Z88.1 Allergy status to other antibiotic agents; Z88.2 Allergy status to sulfonamides
CPT/HCPCS: 36415; 70450; 70496; 70498; 70551; 71045; 80048; 80053; 80061; 81001; 82607; 82746; 83036; 83735; 84443; 84484; 85025; 85610; 93005; 96360; 96361; 99285